=== PATIENT | male | born 1960 | race African-American/Black ===

== ENCOUNTER 2017-08-19 15:30 | Emergency (ER) | payer OTHER, SELFPAY ==
[2017-08-19] MEDS ORDERED: LIDOCAINE 1% 20 ML MDV ONE (16:47)
[2017-08-19] MEDS ORDERED: MORPHINE 4 MG/ML SYR ONE (16:47)
--- NOTE | 2017-08-19 16:50 | RAD REPORT ---
EXAM DESCRIPTION: RAD - Knee Right 3 View - 08/19/2017 4:24 pm CLINICAL HISTORY: Knee pain and swelling COMPARISON: None. FINDINGS: No fracture, dislocation or periosteal reaction.Joint effusion is present. Slight narrowin g of both the medial and lateral compartments noted. Moderately large medial compartment marginal spu rs are present with a more mild marginal spurring pattern in the lateral compartment. Calcification p resent at the patella tendon insertion to the tibia. An acute component is not confirmed. Patient has an edematous appearance to the soft tissues around the knee. No foreign body or other sof t tissue abnormality. IMPRESSION: Prominent for age degenerative change to the knee. Joint effusion is present. No fracture or acute bone finding. Clinical concerns for internal derangement or occult bony injury could be further assessed with MR im aging.
[2017-08-19 16:59] LABS: Protime INR 1.01
[2017-08-19 18:11] LABS: Absolute Lymphocytes (CBC) 1.7 K/uL (0.7-4.9); Absolute Monocytes 0.7 K/uL (0.1-1.3); Absolute Neutrophil 4.1 K/uL (1.8-8.0); Basophils % 0.8 % (0-1.3); Eosinophils % 5.3 % (0-4.4); Hematocrit 38.6 % (39.6-49.0); Lymphocytes % 24.3 % (15.3-44.8); MCH 24.4 pg (27.0-35.0); MCV 75.6 fL (80-100); MPV 7.8 fL (7.6-11.3); Monocytes % 9.8 % (3.3-12.3); RBC Red Blood Cell Count 5.11 M/uL (4.33-5.43)
[2017-08-19 18:40] LABS: BUN Blood Urea Nitrogen 12 mg/dL (7-18); Bicarbonate 28 mmol/L (21-32); Glucose Level 108 mg/dL (74-106); Potassium 3.6 mmol/L (3.5-5.1); Sodium Level 132 mmol/L (136-145)
[2017-08-19 19:12] LABS: Body Fluid Source SYNOVIAL; Color of fluid Yellow (COLORLESS)
[2017-08-19 19:13] LABS: Appearance CLEAR (CLEAR); Body Fluid WBC 601 /mm^3
--- NOTE | 2017-08-19 19:42 | EDPHYS ---
Physician Documentation [facility] Name: Juan Gloria Age: 57 yrs Sex: Male : 1960 Arrival Date: 08/19/2017 Time: 15:33 Bed 18 Private MD: Juan Ramírez E ED Physician Stef Almanzar HPI: 08/19 17:50 This 57 yrs old Black Male presents to ER via Ambulatory with complaints of Knee rn Swelling. 17:50 The patient presents with pain, swelling. The complaints affect the right knee. Onset: rn The symptoms/episode began/occurred 1 week(s) ago. Severity of symptoms: At their worst the symptoms were moderate, in the emergency department the symptoms are unchanged. The patient has experienced similar episodes in the past. Reports right knee pain and swelling, getting worse over 1 week, no hx of gout of joint infections, not a drug user, no trauma. has had bad knees for years, has planned left knee and right knee replacement. . Historical: - Allergies: 15:44 No Known Allergies; aa5 - PMHx: 15:44 Hypertension; aa5 - PSHx: 15:44 back surgery; Knee surgery; aa5 - Immunization history:: Adult Immunizations unknown. - Social history:: Smoking status: Patient/guardian denies using tobacco. - Ebola Screening: : No symptoms or risks identified at this time. - Family history:: not pertinent. - Hospitalizations: : No recent hospitalization is reported. ROS: 17:50 Constitutional: Negative for fever, chills, and weight loss, Eyes: Negative for injury, rn pain, redness, and discharge, Neck: Negative for injury, pain, and swelling, Cardiovascular: Negative for chest pain, palpitations, and edema, Respiratory: Negative for shortness of breath, cough, wheezing, and pleuritic chest pain, Abdomen/GI: Negative for abdominal pain, nausea, vomiting, diarrhea, and constipation, MS/Extremity: Negative for injury and deformity, + swelling and pain to right knee Skin: Negative for injury, rash, and discoloration, Neuro: Negative for headache, weakness, numbness, tingling, and seizure. Exam: 17:50 Constitutional: Overweight male, limping to room MS/ Extremity: + right knee swelling rn and effusion, + mild warmth, no evidence of cellulitis, able to range approx 50% on own but painful. Vital Signs: 15:44 BP 145 / 74; Pulse 87; Resp 18 S; Temp 99.6(TE); Pulse Ox 93% on R/A; Weight 156.49 kg aa5 (R); Height 5 ft. 10 in. (177.80 cm) (R); Pain 9/10; 18:09 BP 123 / 89; Pulse 86; Resp 18; Pulse Ox 96% on R/A; tl3 18:55 BP 141 / 74; Pulse 82; Resp 18; Pulse Ox 96% on R/A; tl3 19:48 BP 144 / 85; Pulse 85; Resp 18 S; Pulse Ox 98% on R/A; jd3 15:44 Body Mass Index 49.50 (156.49 kg, 177.80 cm) aa5 MDM: 15:47 Patient medically screened. rn 19:38 Differential diagnosis: effusion, sprain, inflammatory arthritis. Data reviewed: vital rn signs, nurses notes, lab test result(s), radiologic studies, plain films, and as a result, I will discharge patient. Counseling: I had a detailed discussion with the patient and/or guardian regarding: the historical points, exam findings, and any diagnostic results supporting the discharge/admit diagnosis, lab results, radiology results, the need for outpatient follow up, to return to the emergency department if symptoms worsen or persist or if there are any questions or concerns that arise at home. Special discussion: I discussed with the patient/guardian in detail that at this point there is no indication for admission to the hospital. It is understood, however, that if the symptoms persist or worsen the patient needs to return immediately for re-evaluation. 08/19 15:56 Order name: CBC with Diff; Complete Time: 19:20 rn 08/19 15:56 Order name: Basic Metabolic Panel; Complete Time: 19:20 rn 08/19 15:56 Order name: Protime (+inr); Complete Time: 17:48 rn 08/19 15:56 Order name: Ptt, Activated; Complete Time: 17:48 rn 08/19 15:56 Order name: Procalcitonin; Complete Time: 19:20 rn 08/19 15:56 Order name: Sed Rate; Complete Time: 19:20 rn 08/19 15:56 Order name: IV Start; Complete Time: 16:43 rn 08/19 15:56 Order name: XRAY Knee RIGHT 3 view; Complete Time: 17:00 rn 08/19 15:56 Order name: Blood Culture Adult (2) rn 08/19 17:47 Order name: Fluid Cell Count,Body rn 08/19 17:47 Order name: Fluid Crystals; Complete Time: 19:20 rn 08/19 17:47 Order name: Body Fluid Culture rn 08/19 16:56 Order name: Labs - recollect needed; Complete Time: 17:51 bd Administered Medications: 16:40 Drug: Lidocaine (1 %) 1 vials {Note: per Gary Page.} Volume: 20 ml; Route: tl3 Infiltration; 18:11 Follow up: Response: No adverse reaction tl3 16:51 Drug: morphine 4 mg Route: IVP; Site: right antecubital; jl7 18:11 Follow up: Response: No adverse reaction tl3 Disposition: 08/19/17 19:41 Discharged to Home. Impression: Effusion, right knee, Inflammatory Arthritis. - Condition is Stable. - Discharge Instructions: Knee Effusion, Knee Arthrocentesis. - Prescriptions for Tylenol- Codeine #3 300-30 mg Oral Tablet - take 2 tablets by ORAL route every 6 hours As needed; 20 tablet. - Medication Reconciliation Form, Thank You Letter, Antibiotic Education, Prescription Opioid Use, Work release form form. - Follow up: Yonatan Dunn MD; When: 2 - 3 days; Reason: Recheck today's complaints, Re-evaluation by your physician. - Problem is an ongoing problem. - Symptoms have improved. Signatures: Dispatcher [employer] EDMS Karolyn Hein Roman, MD MD rn Calderon, Audri RN RN aa5 Mirlande Owusu RN RN jl7 Joel Fuentes RN RN jd3 Sabina Rivera RN RN tl3 Corrections: (The following items were deleted from the chart) 20:17 19:41 08/19/2017 19:41 Discharged to Home. Impression: Effusion, right knee; jd3 Inflammatory Arthritis. Condition is Stable. Forms are Medication Reconciliation Form, Thank You Letter, Antibiotic Education, Prescription Opioid Use. Follow up: Yonatan Dunn; When: 2 - 3 days; Reason: Recheck today's complaints, Re-evaluation by your physician. Problem is an ongoing problem. Symptoms have improved. rn
--- NOTE | 2017-08-19 19:42 | ER ---
Nurse's Notes [facility] Name: Juan Gloria Age: 57 yrs Sex: Male : 1960 Arrival Date: 08/19/2017 Time: 15:33 Bed 18 Private MD: Juan Ramírez E Diagnosis: Effusion, right knee;Inflammatory Arthritis Presentation: 08/19 15:42 Presenting complaint: Patient states: "my right knee is swollen and it hurts, and it's aa5 warm to the touch". pt reports symptoms began 1 week ago. Transition of care: patient was not received from another setting of care. Onset of symptoms was August 2017. Risk Assessment: Do you want to hurt yourself or someone else? Patient reports no desire to harm self or others. Initial Sepsis Screen: Does the patient meet any 2 criteria? No. Patient's initial sepsis screen is negative. Does the patient have a suspected source of infection? No. Patient's initial sepsis screen is negative. Care prior to arrival: None. 15:42 Method Of Arrival: Ambulatory aa5 15:42 Acuity: MANDA 3 aa5 Historical: - Allergies: 15:44 No Known Allergies; aa5 - PMHx: 15:44 Hypertension; aa5 - PSHx: 15:44 back surgery; Knee surgery; aa5 - Immunization history:: Adult Immunizations unknown. - Social history:: Smoking status: Patient/guardian denies using tobacco. - Ebola Screening: : No symptoms or risks identified at this time. - Family history:: not pertinent. - Hospitalizations: : No recent hospitalization is reported. Screenin:20 Abuse screen: Denies threats or abuse. Denies injuries from another. Nutritional jl7 screening: No deficits noted. Tuberculosis screening: No symptoms or risk factors identified. Fall Risk IV access (20 points). Total Muñoz Fall Scale indicates No Risk (0-24 pts). Assessment: 16:20 General: Appears in no apparent distress. uncomfortable, Behavior is calm, cooperative, jl7 appropriate for age. Pain: Complains of pain in right knee Pain does not radiate. Pain currently is 9 out of 10 on a pain scale. Pain began a month ago Is continuous. Neuro: Level of Consciousness is awake, alert, obeys commands, Oriented to person, place, time, situation. Cardiovascular: Patient's skin is warm and dry. Respiratory: Airway is patent Respiratory effort is even, unlabored, Respiratory pattern is regular, symmetrical. GI: No signs and/or symptoms were reported involving the gastrointestinal system. : No signs and/or symptoms were reported regarding the genitourinary system. EENT: No signs and/or symptoms were reported regarding the EENT system. Derm: Skin is dry, Skin is normal, Skin temperature is warm. Musculoskeletal: Range of motion: limited in right knee. 18:09 Reassessment: Patient and/or family updated on plan of care and expected duration. Pain tl3 level reassessed. Patient is alert, oriented x 3, equal unlabored respirations, skin warm/dry/pink. aspiration complete, removed about 25 ml of clear yellow fluid, pt tolerated well. 18:55 Reassessment: Patient appears in no apparent distress at this time. No changes from tl3 previously documented assessment. Patient and/or family updated on plan of care and expected duration. Pain level reassessed. Patient is alert, oriented x 3, equal unlabored respirations, skin warm/dry/pink. pt has no needs at this time, updated on lab results, report given to Joel LEIVA. 19:15 Reassessment: Patient appears in no apparent distress at this time. No changes from jd3 previously documented assessment. Patient and/or family updated on plan of care and expected duration. Pain level reassessed. Patient is alert, oriented x 3, equal unlabored respirations, skin warm/dry/pink. awaiting lab results and disposition from provider. 19:49 Reassessment: Patient appears in no apparent distress at this time. Patient and/or jd3 family updated on plan of care and expected duration. Pain level reassessed. Patient is alert, oriented x 3, equal unlabored respirations, skin warm/dry/pink. awaiting provider to discuss results with pt before discharge. 20:16 Reassessment: Patient appears in no apparent distress at this time. Patient and/or jd3 family updated on plan of care and expected duration. Pain level reassessed. Patient is alert, oriented x 3, equal unlabored respirations, skin warm/dry/pink. pt reported understanding of discharge instructions, pt assisted to front of ER with wheelchair. Vital Signs: 15:44 BP 145 / 74; Pulse 87; Resp 18 S; Temp 99.6(TE); Pulse Ox 93% on R/A; Weight 156.49 kg aa5 (R); Height 5 ft. 10 in. (177.80 cm) (R); Pain 9/10; 18:09 BP 123 / 89; Pulse 86; Resp 18; Pulse Ox 96% on R/A; tl3 18:55 BP 141 / 74; Pulse 82; Resp 18; Pulse Ox 96% on R/A; tl3 19:48 BP 144 / 85; Pulse 85; Resp 18 S; Pulse Ox 98% on R/A; jd3 15:44 Body Mass Index 49.50 (156.49 kg, 177.80 cm) aa5 ED Course: 15:33 Patient arrived in ED. sb2 15:34 Juan Ramírez MD is Private Physician. sb2 15:43 Triage completed. aa5 15:44 Arm band placed on. aa5 15:47 Stef Almanzar MD is Attending Physician. rn 16:05 Sabina Rivera, CALI is Primary Nurse. tl3 16:20 Patient has correct armband on for positive identification. Placed in gown. Bed in low jl7 position. Call light in reach. Side rails up X 1. Pulse ox on. NIBP on. Warm blanket given. 16:23 X-ray completed. Portable x-ray completed in exam room. Patient tolerated procedure kc2 well. 16:24 XRAY Knee RIGHT 3 view In Process Unspecified. EDMS 16:30 Inserted saline lock: 20 gauge in right antecubital area, using aseptic technique. jl7 Blood collected. 16:32 Initial lab(s) drawn, by me, sent to lab. First set of blood cultures drawn by me. jl7 16:50 Second set of blood cultures drawn. Missed attempt(s): 20 gauge in right forearm. jl7 Bleeding controlled, band aid applied, catheter tip intact. 18:09 knee aspiration. tl3 18:09 Lab(s) recollected, by me, sent to lab. tl3 19:41 Yonatan Dunn MD is Referral Physician. rn 19:57 Primary Nurse role handed off by Sabina Rivera, RN jd3 19:57 Joel Fuentes RN is Primary Nurse. jd3 20:15 IV discontinued, intact, bleeding controlled, No redness/swelling at site. Pressure jd3 dressing applied. Administered Medications: 16:40 Drug: Lidocaine (1 %) 1 vials {Note: per Gary Page.} Volume: 20 ml; Route: tl3 Infiltration; 18:11 Follow up: Response: No adverse reaction tl3 16:51 Drug: morphine 4 mg Route: IVP; Site: right antecubital; jl7 18:11 Follow up: Response: No adverse reaction tl3 Outcome: 19:41 Discharge ordered by MD. rn 20:15 Discharged to home via wheelchair, with family. jd3 20:15 Condition: stable 20:15 Discharge instructions given to patient, family, Instructed on discharge instructions, follow up and referral plans. medication usage, Demonstrated understanding of instructions, follow-up care, medications, Prescriptions given X 1. 20:17 Patient left the ED. jd3 Signatures: Dispatcher [employer] EDMS Stef Almanzar MD MD rn Calderon, Audri RN RN aa5 Natalia Stoddard2 Mirlande Owusu RN RN jl7 Joel Fuentes RN RN jd3 Mickie Hoffmann2 Sabina Rivera, RN RN tl3 Corrections: (The following items were deleted from the chart) 19:17 19:15 Reassessment: Patient appears in no apparent distress at this time. No changes jd3 from previously documented assessment. Patient and/or family updated on plan of care and expected duration. Pain level reassessed. Patient is alert, oriented x 3, equal unlabored respirations, skin warm/dry/pink. awaiting lab results and dispostition jd3
== END 2017-08-19 20:17 | disposition home or self-care (01) ==
LOC: ER 15:30
DX: M25.461 Effusion, right knee (principal); I10 Essential (primary) hypertension; M13.861 Other specified arthritis, right knee
CPT/HCPCS: 36415; 80048; 84145; 85025; 85610; 85652; 85730; 87040; 87070; 89050; 89060; 96374; 99284

== ENCOUNTER 2019-09-22 11:50 | Emergency (ER) | payer BC, OTHER ==
--- OUTSIDE RECORDS SUMMARY | 2019-09-22 12:27 | XMS REPORT | Continuity of Care Document ---
:1960 Author Organization [facility] t Address [address] [place] [address] [address] [place] [address] Care Team Providers Name Role Phone Unavailable Unavailable Unavailable Problems This patient has no known problems. Allergies, Adverse Reactions, Alerts This patient has no known allergies or adverse reactions. Medications This patient has no known medications. Procedures This patient has no known procedures. Results This patient has no known results.
[2019-09-22] MEDS ORDERED: HYDROCODONE/CHLORPHEN 5 ML/OSYR ONE (13:24)
[2019-09-22] MEDS ORDERED: dexAMETHasone 10 MG/ML VIAL ONE (13:24)
[2019-09-22 13:25] LABS: Absolute Lymphocytes (CBC) 0.8 K/uL (0.7-4.9); Basophils % 0.5 % (0-1.3); Hematocrit 39.4 % (39.6-49.0); Lymphocytes % 20.5 % (15.3-44.8); MPV 8.1 fL (7.6-11.3); RBC Red Blood Cell Count 5.22 M/uL (4.33-5.43)
[2019-09-22 13:28] LABS: Protime INR 1.13
--- NOTE | 2019-09-22 13:29 | RAD REPORT ---
EXAM DESCRIPTION: Verónica Single View09/22/2019 1:12 pm CLINICAL HISTORY: Cough COMPARISON: 2017 FINDINGS: Moderate bilateral pulmonary opacities Heart appears borderline enlarged IMPRESSION: Bilateral pulmonary opacities may indicate pneumonia or pulmonary edema
[2019-09-22 13:43] LABS: ALT/SGPT 49 U/L (12-78); AST/SGOT 75 U/L (15-37); Alkaline Phosphatase 63 U/L (45-117); BUN Blood Urea Nitrogen 5 mg/dL (7-18); Bicarbonate 29 mmol/L (21-32); Bilirubin Direct 0.3 mg/dL (0-0.2); Bilirubin Total 0.8 mg/dL (0.2-1.0); Glucose Level 109 mg/dL (74-106); Potassium 3.6 mmol/L (3.5-5.1); Protein, Total 8.4 g/dL (6.4-8.2); Sodium Level 138 mmol/L (136-145)
--- NOTE | 2019-09-22 16:11 | ER ---
Nurse's Notes [facility] Name: Juan Gloria Age: 59 yrs Sex: Male : 1960 Arrival Date: 09/22/2019 Time: 11:53 Bed 25 Private MD: Diagnosis: Coronavirus infection, unspecified-Pneumonia Presentation: 09/21 12:22 Chief complaint: Patient states: Cough \T\ SOB x 1 week. tested positive for COVID jl7 last . Pt denies fever. Coronavirus screen: Patient reports a cough. Patient reports shortness of breath or difficulty breathing. Patient denies measured and/or subjective temperature greater than 100.4F prior to today's visit. Patient denies travel on a cruise ship or to a country the [facility] currently lists as an affected area. Patient reports contact with known and/or suspected case of COVID-19. Patient instructed to continue to wear a mask when interacting with others. Patient moved to private room, placed in contact and droplet isolation with eye protection until further assessment. Ebola Screen: No symptoms or risks identified at this time. Initial Sepsis Screen: Does the patient meet any 2 criteria? No. Patient's initial sepsis screen is negative. Does the patient have a suspected source of infection? No. Patient's initial sepsis screen is negative. Risk Assessment: Do you want to hurt yourself or someone else? Patient reports no desire to harm self or others. Onset of symptoms was September 16, 2019. Care prior to arrival: None. Transition of care: patient was not received from another setting of care. 12:22 Method Of Arrival: Wheelchair [facility] 12:22 Acuity: MANDA 2 jl7 Triage Assessment: 16:42 Respiratory: Airway is patent Trachea midline Respiratory effort is even, unlabored, ll1 Respiratory pattern is regular, symmetrical, Breath sounds are diminished bilaterally. Onset: The symptoms/episode began/occurred since Friday. Historical: - Allergies: 12:25 No Known Allergies; jl7 - PMHx: 12:25 Hypertension; jl7 - PSHx: 12:25 back surgery; Knee surgery; jl7 - Immunization history:: Adult Immunizations unknown. - Social history:: Smoking status: Patient denies any tobacco usage or history of. - Family history:: not pertinent. - Hospitalizations: : No recent hospitalization is reported. Screenin:16 Abuse screen: Denies threats or abuse. Nutritional screening: No deficits noted. ll1 Tuberculosis screening: No symptoms or risk factors identified. Fall Risk No fall in past 12 months (0 pts). IV access (20 points). Total Muñoz Fall Scale indicates No Risk (0-24 pts). Assessment: 12:40 General: Appears ill, Behavior is calm, cooperative. Pain: Denies pain. Neuro: No ll1 deficits noted. Cardiovascular: No deficits noted. Rhythm is regular. Respiratory: Reports shortness of breath at rest cough that is Airway is patent Trachea midline Respiratory effort is even, labored, Respiratory pattern is regular, symmetrical, the patient has mild shortness of breath. GI: Abdomen is round Bowel sounds present X 4 quads. Abd is soft and non tender X 4 quads. Reports diarrhea. 13:40 Reassessment: No changes from previously documented assessment. Patient and/or family ll1 updated on plan of care and expected duration. Pain level reassessed. Patient is alert, oriented x 3, equal unlabored respirations, skin warm/dry/pink. Removed O2, will continue to monitor. 14:40 Reassessment: Patient appears in no apparent distress at this time. No changes from ll1 previously documented assessment. Patient and/or family updated on plan of care and expected duration. Pain level reassessed. Patient is alert, oriented x 3, equal unlabored respirations, skin warm/dry/pink. 15:40 Reassessment: Patient appears in no apparent distress at this time. No changes from ll1 previously documented assessment. Patient and/or family updated on plan of care and expected duration. Pain level reassessed. Patient is alert, oriented x 3, equal unlabored respirations, skin warm/dry/pink. 16:42 Respiratory: Breath sounds are diminished. ll1 16:44 Reassessment: Patient appears in no apparent distress at this time. No changes from ll1 previously documented assessment. Patient and/or family updated on plan of care and expected duration. Pain level reassessed. Patient is alert, oriented x 3, equal unlabored respirations, skin warm/dry/pink. Vital Signs: 12:22 BP 155 / 94; Pulse 92; Resp 28; Temp 99.2; Pulse Ox 94% ; Weight 147.42 kg; Height 5 jl7 ft. 9 in. (175.26 cm); Pain 10/10; 12:35 Pulse Ox 98% on 2 lpm NC; ll1 13:56 BP 136 / 66; Pulse 86; Resp 23; Pulse Ox 96% on R/A; ll1 14:00 Pulse 82; Resp 24; Pulse Ox 100% ; ll1 16:41 BP 141 / 71; Pulse 80; Resp 23; Pulse Ox 97% ; ll1 12:22 Body Mass Index 47.99 (147.42 kg, 175.26 cm) jl7 ED Course: 11:53 Patient arrived in ED. fj1 12:24 Triage completed. jl7 12:25 Arm band placed on right wrist. Patient placed in an exam room, on a stretcher. jl7 12:26 Shana Renteria, CALI is Primary Nurse. ll1 12:33 Stef Almanzar MD is Attending Physician. rn 12:55 Inserted saline lock: 22 gauge in left antecubital area, using aseptic technique. Blood ll1 collected. 13:13 CXR XRAY In Process Unspecified. EDMS 13:25 Bed in low position. Call light in reach. Side rails up X 1. Side rails up X2. Verbal jp3 reassurance given. supervisor customer records division on. Pulse ox on. NIBP on. 13:25 EKG done, by ED staff, reviewed by Stef Almanzar MD. jp3 16:41 IV discontinued, intact, bleeding controlled, No redness/swelling at site. Pressure ll1 dressing applied. 16:42 No provider procedures requiring assistance completed. ll1 Administered Medications: 13:55 Drug: Tussionex Pennkinetic ER 5 ml Route: PO; ll1 16:44 Follow up: Response: No adverse reaction; Pain is decreased; RASS: Alert and Calm (0) ll1 13:55 Drug: Decadron - Dexamethasone 10 mg Route: IVP; Site: left antecubital; ll1 16:43 Follow up: Response: No adverse reaction; RASS: Alert and Calm (0) ll1 Outcome: 16:10 Discharge ordered by . rn 16:29 Patient left the ED. ll1 16:42 Discharged to home ambulatory. ll1 16:42 Condition: stable 16:42 Discharge instructions given to patient, Instructed on discharge instructions, follow up and referral plans. no drinking with medication, no driving heavy equipment, medication usage, Demonstrated understanding of instructions, follow-up care, medications, Prescriptions given X 4. Addendum: 09/25/2019 13:19 Addendum: COVID-19 Result: Positive result giiven to ED physician to notify pt. h b Physician left voice mail for pt to call the ED back. Signatures: Dispatcher [employer] EDStef Wasserman MD MD rn Baxter, Heather RN RN Mirlande Atwood RN RN jl7 Gerson Mesa jp3 Rafael Dailey1 Shana Renteria RN RN ll1
--- NOTE | 2019-09-22 16:11 | EDPHYS ---
Physician Documentation [facility] Name: Juan Gloria Age: 59 yrs Sex: Male : 1960 Arrival Date: 09/22/2019 Time: 11:53 Bed 25 Private MD: ED Physician Setf Almanzar HPI: 09/21 13:47 This 59 yrs old Black Male presents to ER via Wheelchair with complaints of Breathing rn Difficulty, Cough. 13:47 The patient has shortness of breath at rest, with light activity. Onset: The rn symptoms/episode began/occurred 2 day(s) ago. Duration: The symptoms are continuous. The patient's shortness of breath is aggravated by exertion, light activity. Severity of symptoms: At their worst the symptoms were moderate in the emergency department the symptoms are unchanged. The patient has not experienced similar symptoms in the past. Reports + for COVID this past week, reports himself with 3-4 days of cough/sob/headache/loss of sense of taste and smell, + generalized weakness. . Historical: - Allergies: 12:25 No Known Allergies; jl7 - PMHx: 12:25 Hypertension; jl7 - PSHx: 12:25 back surgery; Knee surgery; jl7 - Immunization history:: Adult Immunizations unknown. - Social history:: Smoking status: Patient denies any tobacco usage or history of. - Family history:: not pertinent. - Hospitalizations: : No recent hospitalization is reported. ROS: 13:47 Constitutional: + fever Eyes: Negative for injury, pain, redness, and discharge, Neck: rn Negative for injury, pain, and swelling, Cardiovascular: Negative for chest pain, palpitations, and edema, Respiratory: + cough and sob Abdomen/GI: Negative for abdominal pain, nausea, vomiting, diarrhea, and constipation, MS/Extremity: Negative for injury and deformity, Skin: Negative for injury, rash, and discoloration, Neuro: Negative for numbness, tingling, and seizure Exam: 13:47 Constitutional: This is a well developed, well nourished patient who is awake, alert, rn + mild tachypnea Head/Face: Normocephalic, atraumatic. ENT: dry MM Cardiovascular: Regular rate and rhythm. No pulse deficits. Respiratory: + mild tachypnea, diminished at bases, no retractions Abdomen/GI: soft, non-tender MS/ Extremity: Pulses equal, no cyanosis. Neurovascular intact. Full, normal range of motion. Equal circumference. Neuro: Awake and alert, GCS 15 14:43 ECG was reviewed by the Attending Physician. rn Vital Signs: 12:22 BP 155 / 94; Pulse 92; Resp 28; Temp 99.2; Pulse Ox 94% ; Weight 147.42 kg; Height 5 jl7 ft. 9 in. (175.26 cm); Pain 10/10; 12:35 Pulse Ox 98% on 2 lpm NC; ll1 13:56 BP 136 / 66; Pulse 86; Resp 23; Pulse Ox 96% on R/A; ll1 14:00 Pulse 82; Resp 24; Pulse Ox 100% ; ll1 16:41 BP 141 / 71; Pulse 80; Resp 23; Pulse Ox 97% ; ll1 12:22 Body Mass Index 47.99 (147.42 kg, 175.26 cm) jl7 MDM: 12:33 Patient medically screened. rn 16:08 Differential diagnosis: pneumonia, Pneumothorax pulmonary edema, COVID 19. Data rn reviewed: vital signs, nurses notes, lab test result(s), radiologic studies, plain films, and as a result, I will discharge patient. Counseling: I had a detailed discussion with the patient and/or guardian regarding: the historical points, exam findings, and any diagnostic results supporting the discharge/admit diagnosis, lab results, radiology results, the need for outpatient follow up, to return to the emergency department if symptoms worsen or persist or if there are any questions or concerns that arise at home. Response to treatment: the patient's symptoms have mildly improved after treatment, and as a result, I will discharge patient. ED course: Spoke with patient, cxr shows likely covid pneumonia, no oxygen requirement, mild tachypnea, offered patient admission, patient does not want to be admitted, wants to go home and states will return if worsens, strict return precautions given, will dc home with cough medication, steroids, inhaler. . 09/21 12:34 Order name: Blood Culture Adult (2) rn 09/21 12:34 Order name: BMP; Complete Time: 13:59 rn 09/21 12:34 Order name: C-Reactive Protein; Complete Time: 13:59 rn 09/21 12:34 Order name: CBC with Diff; Complete Time: 13:33 rn 09/21 12:34 Order name: COVID-19 rn 09/21 12:34 Order name: D-Dimer; Complete Time: 13:33 rn 09/21 12:34 Order name: Ferritin; Complete Time: 13:59 rn 09/21 12:34 Order name: Lactate; Complete Time: 13:59 rn 09/21 12:34 Order name: LFT's; Complete Time: 13:59 rn 09/21 12:34 Order name: Procalcitonin; Complete Time: 13:59 rn 09/21 12:34 Order name: PT-INR; Complete Time: 13:33 rn 09/21 12:34 Order name: Ptt, Activated; Complete Time: 13:33 rn 09/21 12:34 Order name: CXR XRAY; Complete Time: 13:33 rn 09/21 12:34 Order name: EKG; Complete Time: 12:36 rn 09/21 12:34 Order name: Cardiac monitoring; Complete Time: 13:25 rn 09/21 12:34 Order name: Document PUI# rn 09/21 12:34 Order name: Droplet/Contact Precautions; Complete Time: 13:15 rn 09/21 12:34 Order name: EKG - Nurse/Tech; Complete Time: 13:15 rn 09/21 12:34 Order name: IV Start; Complete Time: 12:40 rn 09/21 12:34 Order name: Labs collected and sent; Complete Time: 13:15 rn 09/21 12:34 Order name: Notify Health Dept [phone]/ rn 09/21 12:34 Order name: O2 Per Protocol; Complete Time: 12:40 rn 09/21 12:34 Order name: O2 Sat Monitoring; Complete Time: 12:40 rn EC:43 Rate is 89 beats/min. Rhythm is regular. QRS [place] is Normal. Left axis deviation noted. rn QRS is positive in lead I and negative in lead aVF. CO interval is normal. QRS interval is normal. QT interval is normal. No Q waves. T waves are Normal. No ST changes noted. Clinical impression: NSR w/ Non-specific ST/T Changes. Interpreted by me. Reviewed by me. Administered Medications: 13:55 Drug: Tussionex Pennkinetic ER 5 ml Route: PO; ll1 16:44 Follow up: Response: No adverse reaction; Pain is decreased; RASS: Alert and Calm (0) ll1 13:55 Drug: Decadron - Dexamethasone 10 mg Route: IVP; Site: left antecubital; ll1 16:43 Follow up: Response: No adverse reaction; RASS: Alert and Calm (0) ll1 Disposition: 09/22/19 16:10 Discharged to Home. Impression: Coronavirus infection, unspecified - Pneumonia. - Condition is Stable. - Discharge Instructions: Fever, Adult, Community-Acquired Pneumonia, Adult, COVID-19. - Prescriptions for dexamethasone 6 mg Oral tablet - take 1 tablet by ORAL route once daily for 10 days; 10 tablet. Albuterol Sulfate 90 mcg/actuation - inhale 1-2 puff by INHALATION route every 4-6 hours; 1 Inhaler. Guaifenesin AC 10- 100 mg/5 mL Oral Liquid - take 10 milliliter by ORAL route every 4 hours As needed; 240 milliliter. Zithromax Z- Nicola 250 mg Oral Tablet - take 1 tablet by ORAL route as directed for 5 days Day 1 - take two (2) tablets one time. Day 2, 3, 4 , 5 take one (1) tablet once daily.; 6 tablet. - Medication Reconciliation Form, Thank You Letter, Antibiotic Education, Prescription Opioid Use form. - Follow up: Private Physician; When: 1 - 2 days; Reason: Recheck today's complaints, Re-evaluation by your physician. - Problem is new. - Symptoms have improved. Signatures: Dispatcher [employer] EDMS Stef Almanzar MD MD rn Leal, Jahala, RN RN jl7 Shana Renteria RN RN ll1 Corrections: (The following items were deleted from the chart) 16:29 16:10 09/22/2019 16:10 Discharged to Home. Impression: Coronavirus infection, ll1 unspecified - Pneumonia. Condition is Stable. Forms are Medication Reconciliation Form, Thank You Letter, Antibiotic Education, Prescription Opioid Use. Follow up: Private Physician; When: 1 - 2 days; Reason: Recheck today's complaints, Re-evaluation by your physician. Problem is new. Symptoms have improved. rn
[2019-09-22 22:26] VITALS: TEMP 99.2
[2019-09-22 22:28] VITALS: BP 136/66
[2019-09-22 22:30] VITALS: O2SAT 100
--- NOTE | 2019-09-24 15:28 | EKG ---
Test Date: 2019-09-22 Test Time: 13:16:28 Environmental Services Aide: VICKI MEASUREMENT RESULTS: Intervals: Rate: 89 ND: 156 QRSD: 154 QT: 418 QTc: 508 [place]: P: 54 ND: 156 QRS: -59 T: 31 INTERPRETIVE STATEMENTS: Normal sinus rhythm Left axis deviation Right bundle branch block Abnormal ECG Compared to ECG 01/14/2000 11:20:00 Left-axis deviation now present Right bundle-branch block now present Electronically Signed On 09-24-19 15:24:39 CDT by Pranay Kumari
== END 2019-09-22 16:29 | disposition home or self-care (01) ==
LOC: ER 11:50
DX: U07.1 COVID-19 (principal); J12.89 Other viral pneumonia
CPT/HCPCS: 93005; 87040 ×2; 85025; 80048; 36415; 85610; 85379; 80076; 83605; 85730; 82728; 84145; 86140; 71045; 96374; 99285; J1100

== ENCOUNTER 2019-09-25 07:57 | Inpatient (IN) | payer BC, OTHER ==
--- OUTSIDE RECORDS SUMMARY | 2019-09-25 07:59 | XMS REPORT | Continuity of Care Document ---
:1960 Author Organization [facility] t Address [address] [place] [address] [address]. [address] [place] [address] Care Team Providers Name Role Phone Unavailable Unavailable Unavailable Problems This patient has no known problems. Allergies, Adverse Reactions, Alerts This patient has no known allergies or adverse reactions. Medications This patient has no known medications. Procedures This patient has no known procedures. Results This patient has no known results.
[2019-09-25 08:36] LABS: Basophils % 0.1 % (0-1.3); Hematocrit 40.1 % (39.6-49.0); Lymphocytes % 11.5 % (15.3-44.8); MPV 8.1 fL (7.6-11.3); RBC Red Blood Cell Count 5.32 M/uL (4.33-5.43)
[2019-09-25] MEDS ORDERED: dexAMETHasone 10 MG/ML VIAL ONE (08:51)
[2019-09-25] MEDS ORDERED: ALBUTEROL INHALER 60 PUFF/8 GM IH ONE (08:52)
[2019-09-25] MEDS ORDERED: ENOXAPARIN 100 MG/ML SYR SQ ONE (08:52)
[2019-09-25] MEDS ORDERED: CEFTRIAXONE/SWI 1gm 1 GM/10 ML SYR ONE (08:52)
[2019-09-25 08:59] LABS: ALT/SGPT 58 U/L (12-78); AST/SGOT 80 U/L (15-37); Alkaline Phosphatase 62 U/L (45-117); BUN Blood Urea Nitrogen 10 mg/dL (7-18); Bicarbonate 27 mmol/L (21-32); Bilirubin Direct 0.3 mg/dL (0-0.2); Bilirubin Total 0.7 mg/dL (0.2-1.0); Glucose Level 115 mg/dL (74-106); Magnesium 2.3 mg/dL (1.8-2.4); NT PRO-BNP 96 pg/mL (<125); Potassium 3.4 mmol/L (3.5-5.1); Protein, Total 8.6 g/dL (6.4-8.2); Sodium Level 139 mmol/L (136-145); Troponin (Emerg Dept Use Only) < 0.02 ng/mL (0.0-0.045)
--- NOTE | 2019-09-25 09:20 | ER ---
Nurse's Notes [facility] Name: Juan Gloria Age: 59 yrs Sex: Male : 1960 Arrival Date: 09/25/2019 Time: 08:08 Bed 2 Private MD: Diagnosis: Dyspnea;Hypoxemia;Obesity, unspecified;Pneumonia due to other specified bacteria-covid positive;Hypokalemia Presentation: 09/24 08:08 Chief complaint: Patient states: Increased SOB x 2 days ago. Pt reports positive for aa5 COVID-19 and Pneumonia recently. EMS reports pt's O2 sat was 74% RA upon scene arrival and increased to 88% with non-rebreather. Pt currently 96% per 3 L NC, tachypnea and SOB noted. Pt given ASA 324mg by EMS. 08:08 Coronavirus screen: Patient reports a cough. Patient reports shortness of breath or aa5 difficulty breathing. Patient denies measured and/or subjective temperature greater than 100.4F prior to today's visit. Patient denies travel on a cruise ship or to a country the [facility] currently lists as an affected area. Patient instructed to continue to wear a mask when interacting with others. Patient moved to private room, placed in contact and droplet isolation with eye protection until further assessment. Ebola Screen: Patient negative for fever greater than or equal to 101.5 degrees Fahrenheit, and additional compatible Ebola Virus Disease symptoms. Initial Sepsis Screen: Does the patient meet any 2 criteria? RR > 20 per min. HR > 90 bpm. Yes Does the patient have a suspected source of infection? Yes: Productive cough/pneumonia. Risk Assessment: Do you want to hurt yourself or someone else? Patient reports no desire to harm self or others. Onset of symptoms was September 2019. 08:08 Acuity: MANDA 2 aa5 08:08 Method Of Arrival: EMS: [facility] aa5 Historical: - Allergies: 08:08 No Known Allergies; aa5 - PMHx: 08:08 Hypertension; aa5 - PSHx: 08:08 back surgery; Knee surgery; aa5 - Immunization history:: Adult Immunizations unknown. - Family history:: not pertinent. - Social history:: Smoking status: Patient denies any tobacco usage or history of. Screenin:20 Abuse screen: Denies threats or abuse. Nutritional screening: No deficits noted. aa5 Tuberculosis screening: No symptoms or risk factors identified. Fall Risk IV access (20 points). Total Muñoz Fall Scale indicates No Risk (0-24 pts). Assessment: 08:08 General: Appears uncomfortable, Behavior is calm, cooperative. Pain: Complains of pain aa5 in right lateral anterior chest and left lateral anterior chest Pain does not radiate. Pain currently is 0 out of 10 on a pain scale. Quality of pain is described as aching, Pain began 2-3 days ago. Pt reports pain only with cough Is intermittent. Neuro: Level of Consciousness is awake, alert, obeys commands, Oriented to person, place, time, situation. Cardiovascular: Heart tones S1 S2 present Rhythm is sinus tachycardia. Respiratory: Reports shortness of breath at rest cough that is productive, Airway is patent Respiratory effort is labored, Respiratory pattern is tachypnea Breath sounds are diminished bilaterally. GI: Abdomen is obese, Abd is soft and non tender X 4 quads. : No signs and/or symptoms were reported regarding the genitourinary system. EENT: No signs and/or symptoms were reported regarding the EENT system. Derm: Skin is dry, Skin is normal, Skin temperature is warm. Musculoskeletal: Range of motion: intact in all extremities. 08:50 Neuro: Level of Consciousness is awake, alert, obeys commands, Oriented to person, aa5 place, time, situation. Respiratory: Airway is patent Respiratory effort is labored, Respiratory pattern is tachypnea. Derm: Skin is dry, Skin is normal, Skin temperature is warm. 08:50 General: Appears uncomfortable. aa5 09:00 Reassessment: Awaiting Zithromax from pharmacy. . aa5 09:35 Reassessment: Pt resting in bed with eyes closed, respirations are even and tachypnea, aa5 skin is normal/warm/dry. Sinus tach on monitor. . 10:18 Reassessment: Reports SOB has improved. . General: Appears comfortable. Pain: Denies aa5 pain. Neuro: Level of Consciousness is awake, alert, obeys commands, Oriented to person, place, time, situation. Respiratory: Airway is patent Respiratory effort is even, unlabored, Respiratory pattern is tachypnea. Derm: Skin is dry, Skin is normal, Skin temperature is warm. 11:25 Neuro: Level of Consciousness is awake, alert, obeys commands, Oriented to person, aa5 place, time, situation. Respiratory: Airway is patent Respiratory effort is even, unlabored, Respiratory pattern is tachypnea. Derm: Skin is dry, Skin is normal, Skin temperature is warm. 11:25 Pain: Denies pain. aa5 Vital Signs: 08:08 BP 144 / 88; Pulse 110; Resp 38 S; Temp 99.6(O); Pulse Ox 96% on 3 lpm NC; Weight aa5 156.49 kg (R); Height 5 ft. 9 in. (175.26 cm) (R); Pain 0/10; 09:00 BP 152 / 66; Pulse 102; Resp 34 S; Pulse Ox 93% on 4 lpm NC; Pain 0/10; aa5 09:45 BP 144 / 88; Pulse 101; Resp 28 S; Pulse Ox 97% on 4 lpm NC; aa5 10:52 BP 145 / 72; Pulse 96; Resp 24 S; Temp 97.7(O); Pulse Ox 94% on 4 lpm NC; Pain 0/10; aa5 08:08 Body Mass Index 50.95 (156.49 kg, 175.26 cm) aa5 ED Course: 08:08 Patient arrived in ED. aa5 08:08 Arm band placed on Patient placed in an exam room, on a stretcher. aa5 08:08 Patient has correct armband on for positive identification. Placed in gown. Bed in low aa5 position. Call light in reach. Side rails up X2. 08:08 site monitor on. Pulse ox on. NIBP on. aa5 08:14 Gary Corado MD is Attending Physician. christiane 08:20 Inserted saline lock: 18 gauge in right upper arm, using aseptic technique. Blood aa5 collected. 08:20 Initial lab(s) drawn, by ar, sent to lab. First set of blood cultures drawn by ar. aa5 08:32 Second set of blood cultures drawn by ar. Inserted saline lock: 20 gauge in right hand, aa5 using aseptic technique. 08:37 Lisette Hein, CALI is Primary Nurse. aa5 09:00 Triage completed. aa5 09:16 Damon Tirado MD is Hospitalizing Provider. christiane 09:22 XRAY Chest (1 view) In Process Unspecified. EDMS 11:26 No provider procedures requiring assistance completed. Patient admitted, IV remains in aa5 place. Administered Medications: 08:45 Drug: Albuterol HFA Inhaler 4 puffs Route: Inhalation; aa5 08:45 Drug: Decadron - Dexamethasone 10 mg Route: IVP; Site: right hand; aa5 09:00 Follow up: Response: No adverse reaction aa5 08:47 Drug: Rocephin 1 grams Route: IV; Rate: per protocol; Site: right hand; aa5 09:00 Follow up: Response: No adverse reaction aa5 08:50 Drug: Lovenox 100 mg Route: Sub-Q; Site: right lower abdomen; aa5 10:18 Follow up: Response: No adverse reaction aa5 09:30 Drug: Tylenol 1000 mg Route: PO; bp 10:18 Follow up: Response: No adverse reaction aa5 10:18 Drug: Lasix 20 mg Route: IVP; Site: right hand; aa5 10:50 Follow up: Response: No adverse reaction aa5 10:18 Drug: Thiamine 100 mg Route: IV; Rate: bolus; Site: right hand; aa5 10:18 Drug: foLIC Acid 1 mg Route: IVPB; Site: right hand; aa5 10:18 Drug: Potassium Effervescent Tablet 50 mEq Route: PO; aa5 10:50 Follow up: Response: No adverse reaction aa5 10:57 Drug: Zithromax 500 mg Route: IVPB; Infused Over: 1 hrs; Site: right upper arm; aa5 11:34 Follow up: IV Status: Infusion continued upon admission aa5 Outcome: 09:19 Decision to Hospitalize by Provider. christiane 11:34 Admitted to Tele accompanied by tech, via wheelchair, with chart, Report called to grace Bennett RN 11:34 Condition: stable 11:34 Instructed on the need for admit. 12:08 Patient left the ED. aa5 Signatures: Dispatcher [employer] EDMS Gary Corado MD MD cha Calderon, Audri, RN RN Rico Linares, CALI RN bp Corrections: (The following items were deleted from the chart) 09:00 08:08 Chief complaint: Patient states: Increased SOB x 2 days ago. Pt reports positive aa for COVID-19 and Pneumonia recently. EMS reports pt's O2 sat was 74% RA upon scene arrival and increased to 88% with non-rebreather. Pt currently 96% per 3 L NC, tachypnea and SOB noted. aa5 11:26 08:30 Social history: Smoking status: Patient denies any tobacco usage or history of. aa5 aa5
--- NOTE | 2019-09-25 09:20 | EDPHYS ---
Physician Documentation [facility] Name: Juan Gloria Age: 59 yrs Sex: Male : 1960 Arrival Date: 09/25/2019 Time: 08:08 Bed 2 Private MD: ED Physician Gary Corado HPI: 09/24 08:19 This 59 yrs old Black Male presents to ER via Unassigned with complaints of covid pos christiane and more sob. 08:19 The patient has shortness of breath at rest, with light activity. Onset: The christiane symptoms/episode began/occurred 3 day(s) ago. Duration: The symptoms are continuous, and are steadily getting worse. The patient's shortness of breath has no apparent modifying factors. Associated signs and symptoms: The patient has no apparent associated signs or symptoms. Severity of symptoms: At their worst the symptoms were moderate in the emergency department the symptoms are unchanged. The patient or guardian reports cough, difficulty breathing, flu symptoms, arthralgias, myalgias. Severity of symptoms: At their worst the symptoms were moderate, in the emergency department the symptoms are unchanged. Modifying factors: The symptoms are alleviated by cool environment, the symptoms are aggravated by cold weather, exertion, talking. Associated signs and symptoms: Pertinent positives: rhinorrhea. Historical: - Allergies: 08:08 No Known Allergies; aa5 - PMHx: 08:08 Hypertension; aa5 - PSHx: 08:08 back surgery; Knee surgery; aa5 - Immunization history:: Adult Immunizations unknown. - Family history:: not pertinent. - Social history:: Smoking status: Patient denies any tobacco usage or history of. ROS: 08:19 Constitutional: Negative for fever, chills, and weight loss, Eyes: Negative for injury, christiane pain, redness, and discharge, ENT: Negative for injury, pain, and discharge, Neck: Negative for injury, pain, and swelling, Cardiovascular: Negative for chest pain, palpitations, and edema, Abdomen/GI: Negative for abdominal pain, nausea, vomiting, diarrhea, and constipation, Back: Negative for injury and pain, : Negative for injury, bleeding, discharge, and swelling, MS/Extremity: Negative for injury and deformity, Skin: Negative for injury, rash, and discoloration, Neuro: Negative for headache, weakness, numbness, tingling, and seizure, Psych: Negative for depression, anxiety, suicide ideation, homicidal ideation, and hallucinations, Allergy/Immunology: Negative for hives, rash, and allergies, Endocrine: Negative for neck swelling, polydipsia, polyuria, polyphagia, and marked weight changes, Hematologic/Lymphatic: Negative for swollen nodes, abnormal bleeding, and unusual bruising. 08:19 Respiratory: Positive for cough, shortness of breath, at rest. 08:19 MS/extremity: Negative for acute changes. Exam: 08:19 Constitutional: This is a well developed, well nourished patient who is awake, alert, christiane and in no acute distress. Head/Face: Normocephalic, atraumatic. Eyes: Pupils equal round and reactive to light, extra-ocular motions intact. Lids and lashes normal. Conjunctiva and sclera are non-icteric and not injected. Cornea within normal limits. Periorbital areas with no swelling, redness, or edema. ENT: Nares patent. No nasal discharge, no septal abnormalities noted. Tympanic membranes are normal and external auditory canals are clear. Oropharynx with no redness, swelling, or masses, exudates, or evidence of obstruction, uvula midline. Mucous membranes moist. Neck: Trachea midline, no thyromegaly or masses palpated, and no cervical lymphadenopathy. Supple, full range of motion without nuchal rigidity, or vertebral point tenderness. No Meningismus. Chest/axilla: Normal chest wall appearance and motion. Nontender with no deformity. No lesions are appreciated. Abdomen/GI: Soft, non-tender, with normal bowel sounds. No distension or tympany. No guarding or rebound. No evidence of tenderness throughout. Back: No spinal tenderness. No costovertebral tenderness. Full range of motion. Male : Normal genitalia with no discharge or lesions. Skin: Warm, dry with normal turgor. Normal color with no rashes, no lesions, and no evidence of cellulitis. MS/ Extremity: Pulses equal, no cyanosis. Neurovascular intact. Full, normal range of motion. Neuro: Awake and alert, GCS 15, oriented to person, place, time, and situation. Cranial nerves II-XII grossly intact. Motor strength 5/5 in all extremities. Sensory grossly intact. Cerebellar exam normal. Normal gait. Psych: Awake, alert, with orientation to person, place and time. Behavior, mood, and affect are within normal limits. 08:19 Cardiovascular: Rate: tachycardic, Rhythm: regular, Pulses: Pulses are 4+ in bilateral radial, brachial, femoral, popliteal, posterior tibial and and dorsalis pedis arteries.. Heart sounds: normal, Edema: is not appreciated, JVD: is not appreciated. 08:19 Respiratory: mild respiratory distress is noted, moderate respiratory distress is noted, Respirations: labored breathing, that is mild, Breath sounds: decreased breath sounds, rhonchi, that are mild, Respiratory rate: 26 08:41 ECG was reviewed by the Attending Physician. [facility] Vital Signs: 08:08 BP 144 / 88; Pulse 110; Resp 38 S; Temp 99.6(O); Pulse Ox 96% on 3 lpm NC; Weight aa5 156.49 kg (R); Height 5 ft. 9 in. (175.26 cm) (R); Pain 0/10; 09:00 BP 152 / 66; Pulse 102; Resp 34 S; Pulse Ox 93% on 4 lpm NC; Pain 0/10; aa5 09:45 BP 144 / 88; Pulse 101; Resp 28 S; Pulse Ox 97% on 4 lpm NC; aa5 10:52 BP 145 / 72; Pulse 96; Resp 24 S; Temp 97.7(O); Pulse Ox 94% on 4 lpm NC; Pain 0/10; aa5 08:08 Body Mass Index 50.95 (156.49 kg, 175.26 cm) aa5 MDM: 08:14 Patient medically screened. [facility] 08:22 Data reviewed: vital signs, nurses notes, lab test result(s), EKG, radiologic studies, [facility] plain films. 09/24 08:18 Order name: Basic Metabolic Panel; Complete Time: 09:14 [facility] 09/24 08:18 Order name: CBC with Diff; Complete Time: 08:58 [facility] 09/24 08:18 Order name: LFT's; Complete Time: 09:14 [facility] 09/24 08:18 Order name: Magnesium; Complete Time: 09:14 [facility] 09/24 08:18 Order name: NT PRO-BNP; Complete Time: 09:14 [facility] 09/24 08:18 Order name: Troponin (emerg Dept Use Only); Complete Time: 09:14 [facility] 09/24 08:18 Order name: XRAY Chest (1 view); Complete Time: 09:41 [facility] 09/24 08:18 Order name: Blood Culture Adult (2) 09/24 08:18 Order name: D-Dimer; Complete Time: 08:58 [facility] 09/24 08:18 Order name: Lactate; Complete Time: 08:58 [facility] 09/24 08:18 Order name: Procalcitonin; Complete Time: 09:41 [facility] 09/24 08:18 Order name: EKG; Complete Time: 08:19 [facility] 09/24 08:18 Order name: Cardiac monitoring; Complete Time: 08:37 [facility] 09/24 08:18 Order name: EKG - Nurse/Tech; Complete Time: 08:37 [facility] 09/24 08:18 Order name: IV Saline Lock; Complete Time: 08:37 [facility] 09/24 08:18 Order name: Labs collected and sent; Complete Time: 08:37 [facility] 09/24 08:18 Order name: O2 Per Protocol; Complete Time: 08:37 [facility] 09/24 08:18 Order name: O2 Sat Monitoring; Complete Time: 08:37 [facility] 09/24 10:54 Order name: Diet Heart Healthy; Complete Time: 10:54 aa5 EC:41 Rate is 106 beats/min. Rhythm is regular. QRS [place] is Normal. CO interval is normal. christiane QRS interval is normal. QT interval is normal. No Q waves. T waves are Normal. No ST changes noted. Clinical impression: NSR w/ Non-specific ST/T Changes and No evidence of ischemia. Interpreted by me. Reviewed by me. Administered Medications: 08:45 Drug: Albuterol HFA Inhaler 4 puffs Route: Inhalation; aa5 08:45 Drug: Decadron - Dexamethasone 10 mg Route: IVP; Site: right hand; aa5 09:00 Follow up: Response: No adverse reaction aa5 08:47 Drug: Rocephin 1 grams Route: IV; Rate: per protocol; Site: right hand; aa5 09:00 Follow up: Response: No adverse reaction aa5 08:50 Drug: Lovenox 100 mg Route: Sub-Q; Site: right lower abdomen; aa5 10:18 Follow up: Response: No adverse reaction aa5 09:30 Drug: Tylenol 1000 mg Route: PO; bp 10:18 Follow up: Response: No adverse reaction aa5 10:18 Drug: Lasix 20 mg Route: IVP; Site: right hand; aa5 10:50 Follow up: Response: No adverse reaction aa5 10:18 Drug: Thiamine 100 mg Route: IV; Rate: bolus; Site: right hand; aa5 10:18 Drug: foLIC Acid 1 mg Route: IVPB; Site: right hand; aa5 10:18 Drug: Potassium Effervescent Tablet 50 mEq Route: PO; aa5 10:50 Follow up: Response: No adverse reaction aa5 10:57 Drug: Zithromax 500 mg Route: IVPB; Infused Over: 1 hrs; Site: right upper arm; aa5 11:34 Follow up: IV Status: Infusion continued upon admission aa5 Disposition: 09/25/19 09:19 Hospitalization ordered by Damon Tirado for Inpatient Admission. Preliminary diagnosis are Dyspnea, Hypoxemia, Obesity, unspecified, Pneumonia due to other specified bacteria - covid positive, Hypokalemia. - Bed requested for Telemetry/MedSurg (Inpatient). - Status is Inpatient Admission. aa5 - Condition is Stable. - Problem is new. - Symptoms have improved. Signatures: Dispatcher [employer] EDMS Gary Corado MD MD cha Calderon, Audri, RN RN aa5 Giovani Mendoza, ROLLER REPAIRER-C ROLLER REPAIRER-Cla1 Rico Cool RN RN Shalonda Fischer Corrections: (The following items were deleted from the chart) 10:12 09:19 Hospitalization Ordered by Damon Tirado MD for Inpatient Admission. Preliminary christiane diagnosis is Dyspnea; Hypoxemia; Obesity, unspecified; Pneumonia due to other specified bacteria - covid positive. Bed requested for Telemetry/MedSurg (Inpatient). Status is Inpatient Admission. Condition is Stable. Problem is new. Symptoms have improved. christiane 10:41 10:12 09/25/2019 09:19 Hospitalization Ordered by Damon Tirado MD for Inpatient eb Admission. Preliminary diagnosis is Dyspnea; Hypoxemia; Obesity, unspecified; Pneumonia due to other specified bacteria - covid positive; Hypokalemia. Bed requested for Telemetry/MedSurg (Inpatient). Status is Inpatient Admission. Condition is Stable. Problem is new. Symptoms have improved. christiane 10:42 10:41 09/25/2019 09:19 Hospitalization Ordered by Damon Tirado MD for Inpatient eb Admission. Preliminary diagnosis is Dyspnea; Hypoxemia; Obesity, unspecified; Pneumonia due to other specified bacteria - covid positive; Hypokalemia. Bed requested for Telemetry/MedSurg (Inpatient). Status is Inpatient Admission. Condition is Stable. Problem is new. Symptoms have improved. eb 11:26 08:30 Social history: Smoking status: Patient denies any tobacco usage or history of. aa5 aa5 11:34 08:18 Urine Dipstick-Ancillary ordered. [place] [id number] 12:08 10:42 09/25/2019 09:19 Hospitalization Ordered by Damon Tirado MD for Inpatient aa5 Admission. Preliminary diagnosis is Dyspnea; Hypoxemia; Obesity, unspecified; Pneumonia due to other specified bacteria - covid positive; Hypokalemia. Bed requested for Telemetry/MedSurg (Inpatient). Status is Inpatient Admission. Condition is Stable. Problem is new. Symptoms have improved. eb
[2019-09-25] MEDS ORDERED: ACETAMINOPHEN 500 MG TAB ONE (09:34)
--- NOTE | 2019-09-25 09:35 | RAD REPORT ---
EXAM DESCRIPTION: RAD - Chest Single View - 09/25/2019 9:22 am CLINICAL HISTORY: DYSPNEA, shortness of breath, dyspnea on exertion, patient history of positive COV ID test COMPARISON: September 21 TECHNIQUE: AP portable chest image was obtained 09/25/2019 9:22 am . FINDINGS: Lung volumes are low. Portable technique and large body habitus also limit evaluation. Airspace opacification has worsened since the September 21 study. Cardiomegaly is present along with vascu lar engorgement. No large pleural effusions seen. No pneumothorax identified. No acute bony abnormali ty seen. No acute aortic findings suspected. IMPRESSION: Worsening bilateral airspace opacification. This is only partly due to a more shallow in spiratory effort. True progression of airspace disease is suspected. If the patient positive COVID history is correct, current findings could indicate worsening bilateral COVID-19 pneumonia.
--- NOTE | 2019-09-25 10:09 | P.HP ---
Certification for Inpatient Patient admitted to: Inpatient With expected LOS: >2 Midnights Patient will require the following post-hospital care: None Practitioner: I am a practitioner with admitting privileges, knowledge of patient current condition, hospital course, and medical plan of care. Services: Services provided to patient in accordance with Admission requirements found in Title 42 Section 412.3 of the Code of Federal Regulations <Giovani Mendoza - Last Filed: 09/25/19 10:05> Patient History Date of Service: 09/25/19 Primary Care Provider: liz Reason for admission: Hypoxia, pneumonia, COVID History of Present Illness: 59-year-old male with medical history of hypertension presents emergency department for worsening shortness of breath. Patient reports that he tested positive for COVID earlier this week on a Friday or Friday. Patient reports that he was doing all right although he was short of breath. Patient reports this morning shortness of breath significantly increase and he had to call 911 to be transferred to hospital. EMS reports patient's room air sats were 74% on seen. In the emergency department patient is tolerating a nasal cannula at 4 L with saturations around 90% that he is dyspneic and tachypneic. ED provider wishes to admit patient for further evaluation and management. - Past Medical/Surgical History Has patient received pneumonia vaccine in the past: No Diabetic: No -: Hypertension -: Knee surgery -: Back surgery -: Ankle surgery Psychosocial/ Personal History: Patient lives at home with his . - Family History Family History: Reviewed- Non-Contributory - Social History Smoking Status: Never smoker Alcohol use: Yes CD- Drugs: No Caffeine use: Yes Place of Residence: Home <Giovani Mendoza - Last Filed: 09/25/19 10:05> Date of Service: 09/25/19 <Yosvany Tirado - Last Filed: 09/25/19 13:52> Allergies No Known Allergies Allergy (Unverified 08/29/16 13:00) Review of Systems 10-point ROS is otherwise unremarkable Respiratory: Cough, Dry, Shortness of Breath <Giovani Mendoza - Last Filed: 09/25/19 10:05> Physical Examination - Physical Exam General: Alert, In no apparent distress, Oriented x3 HEENT: Atraumatic, Normocephalic, PERRLA, Mucous membr. moist/pink Neck: Supple Respiratory: Diminished (Bilaterally), Other (Tachypneic, mild respiratory distress) Cardiovascular: Regular rate/rhythm, Normal S1 S2 Capillary refill: <2 Seconds Gastrointestinal: Normal bowel sounds, Soft and benign Musculoskeletal: No contractures, No erythema, No tenderness Integumentary: No tenderness/swelling, No erythema, No warmth Neurological: Normal speech, Normal strength at 5/5 x4 extr, Normal tone - Studies Laboratory Data (last 24 hrs) 09/25/19 08:20: WBC 8.7 D, Hgb 13.1 L, Hct 40.1, Plt Count 248 D 09/25/19 08:20: Sodium 139, Potassium 3.4 L, BUN 10, Creatinine 0.98, Glucose 115 H, Magnesium 2.3, Total Bilirubin 0.7, AST 80 H, ALT 58, Alkaline Phosphatase 62 <Giovani Mendoza - Last Filed: 09/25/19 10:05> - Studies Laboratory Data (last 24 hrs) 09/25/19 08:20: WBC 8.7 D, Hgb 13.1 L, Hct 40.1, Plt Count 248 D 09/25/19 08:20: Sodium 139, Potassium 3.4 L, BUN 10, Creatinine 0.98, Glucose 115 H, Magnesium 2.3, Total Bilirubin 0.7, AST 80 H, ALT 58, Alkaline Phosphatase 62 <Yosvany Tirado - Last Filed: 09/25/19 13:52> Assessment and Plan - Plan Assessment Acute respiratory failure with hypoxia secondary to bilateral COVID pneumonia Hypertension Obesity Plan Acute respiratory failure with hypoxia secondary to bilateral COVID pneumonia: Patient be admitted for further evaluation and management. Will titrate oxygen delivery to sats of 90%. Pulmonology has been consulted on this case. Continue with IV Decadron, oral thiamine, orals and, oral folic acid. Daily Lasix 20 mg p.o.. Will continue with full anticoagulation with Eliquis 5 mg p.o. b.i.d.. Anticipate clinical improvement next 48 hr. Hypertension: Will continue patient's home medications. Obesity: Counseled on lifestyle changes. Discharge Plan: Home Plan to discharge in: 48 Hours - Advance Directives Does patient have a Living Will: No Does patient have a Durable POA for Healthcare: No - Code Status/Comfort Care Code Status Assessed: Yes (Patient is full code) Critical Care: No Time Spent Managing Pts Care (In Minutes): 55 <Giovani Mendoza - Last Filed: 09/25/19 10:05> - Plan The patient was seen and examined Agree with the assessment and plan as documented by the MELANIE <Yosvany Tirado - Last Filed: 09/25/19 13:52>
[2019-09-25] MEDS ORDERED: FUROSEMIDE 20 MG/ 2ML VIAL ONE (10:17)
[2019-09-25] MEDS ORDERED: THIAMINE 200 MG/2 ML INJ ONE (10:17)
[2019-09-25] MEDS ORDERED: FOLIC ACID 5 MG/ML VIAL ONE (10:18)
[2019-09-25] MEDS ORDERED: POTASSIUM 25 MEQ EFFERV TAB ONE (10:18)
[2019-09-25] MEDS ORDERED: AZITHROMYCIN IV 500 MG in NA CHLORIDE 0.9% 250 ML IVPB ONE (11:00)
[2019-09-25 12:29] VITALS: BMI 50.9
[2019-09-25] MEDS ORDERED: ONDANSETRON 4 MG/2 ML VIAL IV PRN (12:29)
[2019-09-25] MEDS: dexAMETHasone 10 MG/ML VIAL IV SCH (16:04)
[2019-09-25] MEDS: HYDROCODONE/APAP 10/325 TAB PO PRN (16:57)
[2019-09-25] MEDS: APIXABAN 5 MG TABLET PO SCH (20:13)
[2019-09-25] MEDS: BUDESONIDE 0.5 MG/2 ML NEB NEB SCH (20:35)
[2019-09-26] MEDS: dexAMETHasone 10 MG/ML VIAL IV SCH
[2019-09-26 05:56] LABS: Absolute Lymphocytes (CBC) 0.7 K/uL (0.7-4.9); Basophils % 0.4 % (0-1.3); Hematocrit 39.5 % (39.6-49.0); Lymphocytes % 10.6 % (15.3-44.8); MPV 8.1 fL (7.6-11.3); RBC Red Blood Cell Count 5.14 M/uL (4.33-5.43)
[2019-09-26 06:12] LABS: BUN Blood Urea Nitrogen 13 mg/dL (7-18); Bicarbonate 29 mmol/L (21-32); Glucose Level 147 mg/dL (74-106); Magnesium 2.6 mg/dL (1.8-2.4); Potassium 4.2 mmol/L (3.5-5.1); Sodium Level 138 mmol/L (136-145)
--- NOTE | 2019-09-26 07:27 | EKG ---
Test Date: 2019-09-25 Test Time: 08:27:59 Qa Internship: [facility] MEASUREMENT RESULTS: Intervals: Rate: 106 CA: 140 QRSD: 150 QT: 412 QTc: 547 [place]: P: 43 CA: 140 QRS: -57 T: 30 INTERPRETIVE STATEMENTS: Sinus tachycardia Left axis deviation Right bundle branch block Abnormal ECG Compared to ECG 09/22/2019 13:16:28 Sinus rhythm no longer present Electronically Signed On 09-26-19 07:25:11 CDT by Pranay Kumari
[2019-09-26] MEDS: FUROSEMIDE 20 MG TABLET PO SCH (08:03)
[2019-09-26] MEDS: ZINC SULFATE 220 MG CAP PO SCH (08:03)
[2019-09-26] MEDS: APIXABAN 5 MG TABLET PO SCH ×2 (08:04→20:15)
[2019-09-26] MEDS: FOLIC ACID 1 MG TABLET PO SCH (08:04)
[2019-09-26] MEDS: VITAMIN D 1000 UNIT TAB PO SCH (08:07)
[2019-09-26] MEDS: METHYLPREDNISOLONE 40 MG INJ IV SCH ×2 (08:12→20:15)
[2019-09-26] MEDS: HYDROCODONE/APAP 10/325 TAB PO PRN ×3 (08:19→22:28)
[2019-09-26] MEDS: BUDESONIDE 0.5 MG/2 ML NEB NEB SCH ×2 (08:49→19:40)
--- NOTE | 2019-09-26 08:55 | P.PN ---
Subjective Date of Service: 09/26/19 Primary Care Provider: liz Chief Complaint: Hypoxia, pneumonia, COVID Subjective: No new changes <Giovani Mendoza - Last Filed: 09/26/19 08:53> Date of Service: 09/26/19 <Jose Martin Tiradohoady Pak - Last Filed: 09/26/19 11:25> Review of Systems Respiratory: Cough, Dry, Shortness of Breath <Giovani Mendoza - Last Filed: 09/26/19 08:53> Physical Examination - Vital Signs Temperature: 97.1 F Blood Pressure: 149/74 Pulse: 63 Respirations: 22 Pulse Ox (%): 92 - Physical Exam General: Alert, In no apparent distress, Oriented x3 HEENT: Atraumatic Neck: Supple Respiratory: Diminished, Other (Tachypneic/dyspnea) Cardiovascular: Normal pulses, Regular rate/rhythm, Normal S1 S2 Capillary refill: <2 Seconds Gastrointestinal: Normal bowel sounds, Soft and benign Musculoskeletal: No contractures, No erythema, No tenderness Integumentary: No significant lesion, No tenderness/swelling, No erythema Neurological: Normal speech, Normal tone - Studies Laboratory Data (last 24 hrs) 09/25/19 08:20: Sodium 139, Potassium 3.4 L, BUN 10, Creatinine 0.98, Glucose 115 H, Magnesium 2.3, Total Bilirubin 0.7, AST 80 H, ALT 58, Alkaline Phosphatase 62 <Giovani Mendoza - Last Filed: 09/26/19 08:53> Assessment & Plan Discharge Plan: Home Plan to discharge in: Greater than 2 days - Code Status/Comfort Care Code Status Assessed: Yes (Patient is full code) Physician Review Additional Text: Assessment Acute respiratory failure with hypoxia secondary to bilateral COVID pneumonia Hypertension Obesity Plan Acute respiratory failure with hypoxia secondary to bilateral COVID pneumonia: The patient early on high-flow oxygen therapy at 70% FiO2. Will titrate oxygen delivery to sats of 90%. Pulmonology has been consulted on this case. Continue with pulmonology recommendations. Will continue with full anticoagulation with Eliquis 5 mg p.o. b.i.d.. Anticipate clinical improvement next 48 hr to 72 hr. Hypertension: Home medications have been continued. Obesity: Counseled on lifestyle changes. Critical Care: No Time Spent Managing Pts Care (In Minutes): 55 <Giovani Mendoza - Last Filed: 09/26/19 08:53> Physician Review Additional Text: Patient was seen and examined and findings were discussed Agree with the assessment and plan as documented by the MELANIE <Yosvany Tirado - Last Filed: 09/26/19 11:25>
[2019-09-26] MEDS ORDERED: HOME MED 1 EA UNK (Metoprolol Tartrate [Lopressor] 100 MG) PO SCH (09:00)
[2019-09-26] MEDS ORDERED: THIAMINE HCL 100 MG TABLET PO SCH (09:00)
[2019-09-26] MEDS ORDERED: hydroCHLOROthiazide 12.5 MG CAP PO SCH (09:00)
[2019-09-26] MEDS: BUPROPION HCL XL 150 MG TAB PO SCH (09:47)
[2019-09-26] MEDS: AMLODIPINE 10 MG TAB PO SCH (09:47)
--- NOTE | 2019-09-26 13:27 | P.CNS ---
Date of Consult: 09/26/19 Primary Care Provider: hill Chief Complaint: Hypoxia, pneumonia, COVID History of Present Illness: Patient is 59-year-old after neck [place] male [place] history of hypertension admitted with progressive dyspnea he has been tested positive recently admitted with shortness of breath hypoxemia Allergies No Known Allergies Allergy (Unverified 08/29/16 13:00) Home Medications: ALPRAZolam [Xanax*] 1 mg PO BIDP PRN 09/25/19 Amlodipine [Norvasc*] 10 mg PO DAILY 09/25/19 Bupropion *Xl* [Wellbutrin XL] 300 mg PO DAILY 09/25/19 Hydrocodone/Acetaminophen [Hydrocodone-Acetamin 10-325 mg] 1 tab PO QID 09/25/19 Metoprolol Tartrate [Lopressor] 100 mg PO BID 09/25/19 hydroCHLOROthiazide [Hydrochlorothiazide*] 12.5 tab PO DAILY 09/25/19 - Past Medical/Surgical History Diabetic: No -: Hypertension -: Sleep Apnea -: Knee surgery -: Back surgery -: Ankle surgery Psychosocial/ Personal History: Patient lives at home with his . - Family History Father Medical History: Kidney disease Mother Medical History: Cancer - Social History Smoking Status: Current every day smoker Alcohol use: Yes CD- Drugs: No Caffeine use: Yes Place of Residence: Home Physical Examination Temp Pulse Resp BP Pulse Ox 97 F 65 20 144/79 H 90 L 09/26/19 12:00 09/26/19 12:00 09/26/19 12:00 09/26/19 12:00 09/26/19 12:00 - Problems (1) Coronavirus infection Current Visit: Yes Status: Acute Plan: Patient is 59 years of age admitted with respiratory failure secondary to jones virus he does of interstitial changes currently is on high-flow oxygen continue with steroids supplements continue to monitor labs and chemistries reviewed
[2019-09-26] MEDS ORDERED: VANCOMYCIN 1 GM in NA CHLORIDE 0.9% 250 ML IVPB SCH (15:00)
[2019-09-26] MEDS: VANCOMYCIN 2 GM in NA CHLORIDE 0.9% 500 ML IVPB SCH (16:54)
[2019-09-26] MEDS: METOPROLOL TAR 50 MG TAB PO SCH (17:04)
[2019-09-26] MEDS: ATORVASTATIN 40 MG TAB PO SCH (20:15)
[2019-09-26] MEDS: MELATONIN 3 MG TABLET PO SCH (20:15)
[2019-09-26] MEDS: THIAMINE 200 MG/2 ML INJ IVP SCH (20:16)
[2019-09-27] MEDS: VANCOMYCIN 2 GM in NA CHLORIDE 0.9% 500 ML IVPB SCH (04:58)
[2019-09-27] MEDS: METOPROLOL TAR 50 MG TAB PO SCH ×2 (05:00→17:04)
[2019-09-27 05:55] LABS: Absolute Lymphocytes (CBC) 0.9 K/uL (0.7-4.9); Basophils % 0.2 % (0-1.3); Hematocrit 37.8 % (39.6-49.0); Lymphocytes % 10.7 % (15.3-44.8); MPV 8.4 fL (7.6-11.3); RBC Red Blood Cell Count 4.95 M/uL (4.33-5.43)
[2019-09-27 06:03] LABS: BUN Blood Urea Nitrogen 15 mg/dL (7-18); Bicarbonate 27 mmol/L (21-32); Glucose Level 157 mg/dL (74-106); Magnesium 2.8 mg/dL (1.8-2.4); Potassium 4.5 mmol/L (3.5-5.1); Sodium Level 136 mmol/L (136-145)
[2019-09-27] MEDS: BUPROPION HCL XL 150 MG TAB PO SCH (07:33)
[2019-09-27] MEDS: FUROSEMIDE 20 MG TABLET PO SCH (07:35)
[2019-09-27] MEDS: METHYLPREDNISOLONE 40 MG INJ IV SCH (07:35)
[2019-09-27] MEDS: ZINC SULFATE 220 MG CAP PO SCH (07:35)
[2019-09-27] MEDS: THIAMINE 200 MG/2 ML INJ IVP SCH ×2 (07:35→20:51)
[2019-09-27] MEDS: VITAMIN D 1000 UNIT TAB PO SCH (07:36)
[2019-09-27] MEDS: FOLIC ACID 1 MG TABLET PO SCH (07:36)
[2019-09-27] MEDS: APIXABAN 5 MG TABLET PO SCH ×2 (07:36→20:46)
[2019-09-27] MEDS: AMLODIPINE 10 MG TAB PO SCH (07:36)
[2019-09-27] MEDS: BUDESONIDE 0.5 MG/2 ML NEB NEB SCH ×2 (09:20→20:30)
--- NOTE | 2019-09-27 09:52 | P.PN ---
Subjective Date of Service: 09/27/19 Primary Care Provider: liz Chief Complaint: Hypoxia, pneumonia, COVID Subjective: No C/O voiced <Giovani Mendoza - Last Filed: 09/27/19 09:50> Date of Service: 09/27/19 <Yosvany Tirado - Last Filed: 09/27/19 15:20> Review of Systems 10-point ROS is otherwise unremarkable Respiratory: Cough, Dry, Shortness of Breath <Giovani Mendoza - Last Filed: 09/27/19 09:50> Physical Examination - Vital Signs Temperature: 96.8 F Blood Pressure: 135/66 Pulse: 59 Respirations: 25 Pulse Ox (%): 90 - Physical Exam General: Alert, In no apparent distress HEENT: Atraumatic, PERRLA, EOMI Neck: Supple, JVD not distended Respiratory: Diminished Cardiovascular: Regular rate/rhythm, Normal S1 S2 Gastrointestinal: Normal bowel sounds, No tenderness Musculoskeletal: No tenderness Integumentary: No rashes Neurological: Normal speech, Normal tone, Normal affect Lymphatics: No axilla or inguinal lymphadenopathy - Studies Microbiology Data (last 24 hrs): 09/25/19 08:32 Blood - Blood Blood Culture Gram Stain - Final Medications List Reviewed: Yes <Giovani Mendoza - Last Filed: 09/27/19 09:50> - Studies Microbiology Data (last 24 hrs): 09/25/19 08:32 Blood - Blood Blood Culture Gram Stain - Final <Yosvany Tirado - Last Filed: 09/27/19 15:20> Assessment & Plan Discharge Plan: Home Plan to discharge in: 48 Hours - Code Status/Comfort Care Code Status Assessed: Yes (Patient is full code) Physician Review Additional Text: Assessment Acute respiratory failure with hypoxia secondary to bilateral COVID pneumonia Hypertension Obesity Plan Acute respiratory failure with hypoxia secondary to bilateral COVID pneumonia: The patient is doing well on on high-flow oxygen therapy at 70% FiO2. Will titrate oxygen delivery to sats of 90%. Pulmonology has been consulted on this case. Continue with pulmonology recommendations. Will continue with full anticoagulation. Anticipate clinical improvement next 48 hr to 72 hr. Patient will likely require home oxygen at discharge. When patient is eating close to being ready for discharge recommend consult respiratory therapy and social work for home oxygen. Hypertension: Home medications have been continued. Obesity: Counseled on lifestyle changes. Critical Care: No Time Spent Managing Pts Care (In Minutes): 55 <Giovani Mendoza - Last Filed: 09/27/19 09:50> Physician Review Additional Text: Patient was seen and examined and findings were discussed Agree with the assessment and plan as documented by the MELANIE <Yosvany Tirado - Last Filed: 09/27/19 15:20>
[2019-09-27] MEDS ORDERED: METHYLPREDNISOLONE 125 MG INJ IV ONE (12:47)
--- NOTE | 2019-09-27 12:51 | P.PN ---
Subjective Date of Service: 09/27/19 Primary Care Provider: hill Chief Complaint: Respiratory failure from jones virus Patient is still very hypoxic requiring BiPAP he still requiring high concentrations of oxygen Review of Systems General: Weakness Respiratory: Shortness of Breath Physical Examination - Vital Signs Temperature: 97.2 F Blood Pressure: 141/74 Pulse: 64 Respirations: 36 Pulse Ox (%): 89 - Studies Microbiology Data (last 24 hrs): 09/25/19 08:32 Blood - Blood Blood Culture Gram Stain - Final Medications List Reviewed: Yes Assessment & Plan - Problems (Diagnosis) (1) Coronavirus infection Current Visit: Yes Status: Acute Plan: Patient has respiratory failure from coronal virus still on high concentrations of oxygen and given additional doses of steroids Dc vancomycin the no fever continue to monitor
[2019-09-27] MEDS: MELATONIN 3 MG TABLET PO SCH (20:46)
[2019-09-27] MEDS: ATORVASTATIN 40 MG TAB PO SCH (20:46)
[2019-09-27] MEDS: METHYLPREDNISOLONE 125 MG INJ IV SCH (20:49)
[2019-09-28 05:51] LABS: Absolute Lymphocytes (CBC) 0.8 K/uL (0.7-4.9); Basophils % 0.5 % (0-1.3); Hematocrit 38.3 % (39.6-49.0); MPV 8.3 fL (7.6-11.3)
[2019-09-28 06:02] LABS: BUN Blood Urea Nitrogen 18 mg/dL (7-18); Bicarbonate 30 mmol/L (21-32); Glucose Level 169 mg/dL (74-106); Magnesium 2.7 mg/dL (1.8-2.4); Potassium 5.1 mmol/L (3.5-5.1); Sodium Level 138 mmol/L (136-145)
[2019-09-28] MEDS: BUPROPION HCL XL 150 MG TAB PO SCH (07:35)
[2019-09-28] MEDS: VITAMIN D 1000 UNIT TAB PO SCH (07:35)
[2019-09-28] MEDS: FUROSEMIDE 20 MG TABLET PO SCH (07:35)
[2019-09-28] MEDS: APIXABAN 5 MG TABLET PO SCH ×2 (07:35→20:37)
[2019-09-28] MEDS: ZINC SULFATE 220 MG CAP PO SCH (07:35)
[2019-09-28] MEDS: FOLIC ACID 1 MG TABLET PO SCH (07:35)
[2019-09-28] MEDS: THIAMINE 200 MG/2 ML INJ IVP SCH ×2 (07:36→20:37)
[2019-09-28] MEDS: AMLODIPINE 10 MG TAB PO SCH (07:36)
[2019-09-28] MEDS: METHYLPREDNISOLONE 125 MG INJ IV SCH ×2 (07:37→20:35)
[2019-09-28] MEDS: BUDESONIDE 0.5 MG/2 ML NEB NEB SCH ×2 (09:25→20:42)
--- NOTE | 2019-09-28 11:21 | P.PN ---
Subjective Date of Service: 09/28/19 Primary Care Provider: Ramírez Chief Complaint: Respiratory failure from jones virus Subjective: Tolerating diet, Improving (slowly), Other Review of Systems General: As per HPI Eyes: Unremarkable ENT: Unremarkable Respiratory: Shortness of Breath, SOB with Excertion Cardiovascular: Unremarkable Gastrointestinal: Unremarkable Genitourinary: Unremarkable Musculoskeletal: Unremarkable Integumentary: Unremarkable Neurological: Unremarkable Physical Examination - Vital Signs Temperature: 97.0 F Blood Pressure: 140/79 Pulse: 56 Respirations: 19 Pulse Ox (%): 98 - Physical Exam General: Alert, In no apparent distress, Oriented x3 HEENT: Atraumatic, Normocephalic, PERRLA Neck: Supple, Other (Trachea midline) Respiratory: Diminished Cardiovascular: No edema, Normal pulses, Regular rate/rhythm Capillary refill: <2 Seconds Gastrointestinal: Normal bowel sounds, Soft and benign, Non-distended Musculoskeletal: No swelling, No erythema, No tenderness Integumentary: No breakdown, No significant lesion, No tenderness/swelling Neurological: Normal speech, Normal strength at 5/5 x4 extr, Normal tone - Studies Microbiology Data (last 24 hrs): 09/25/19 08:32 Blood - Blood Blood Culture Gram Stain - Final Medications List Reviewed: Yes Assessment And Plan - Plan Assessment Acute respiratory failure with hypoxia secondary to bilateral COVID pneumonia: Hypertension: Obesity: Plan Acute respiratory failure with hypoxia secondary to bilateral COVID pneumonia: Patient currently on CPAP BiPAP. Will continue to try to wean patient off CPAP/BiPAP. Pulmonology following. Continue with pulmonology recommendations. Continue methylprednisone at 80 mg Q12hrs. Will continue with full anticoagulation. Anticipate clinical improvement next 48 hr to 72 hr. Patient will likely require home oxygen at discharge. Tolerating p.o. diet but still requiring significant O2 support. Patient cannot be discharged on to weaned off of O2 support down to 4 L nasal cannula. Hypertension: Stable. Home medications have been continued. Obesity: Counseled on lifestyle changes. Discharge Plan: Home Plan to discharge in: 48 Hours - Code Status/Comfort Care Code Status Assessed: Yes Physician Review Additional Text: Patient was seen and examined and findings were discussed Agree with the assessment and plan as documented by the MELANIE Time Spent Managing PTS Care (In Minutes): 50
--- NOTE | 2019-09-28 16:29 | P.PN ---
Subjective Date of Service: 09/28/19 Primary Care Provider: Ramírez Chief Complaint: Respiratory failure from jones virus Doing much better he is currently on CPAP oxygenation is improved Physical Examination - Vital Signs Temperature: 97 F Blood Pressure: 138/68 Pulse: 74 Respirations: 23 Pulse Ox (%): 98 - Studies Medications List Reviewed: Yes Assessment & Plan - Problems (Diagnosis) (1) Coronavirus infection Current Visit: Yes Status: Acute Plan: Patient is improving titrate to nasal cannula oxygen may need home oxygen plan for discharge check a CRP levels tomorrow CRP level is declined by 50%
[2019-09-28] MEDS: METOPROLOL TAR 50 MG TAB PO SCH (17:07)
[2019-09-28] MEDS: HYDROCODONE/APAP 10/325 TAB PO PRN (18:09)
[2019-09-28] MEDS: MELATONIN 3 MG TABLET PO SCH (20:37)
[2019-09-28] MEDS: ATORVASTATIN 40 MG TAB PO SCH (20:37)
[2019-09-29] MEDS: METOPROLOL TAR 50 MG TAB PO SCH ×2 (05:12→17:06)
[2019-09-29 05:42] LABS: Absolute Lymphocytes (CBC) 0.9 K/uL (0.7-4.9); Basophils % 0.1 % (0-1.3); Hematocrit 38.5 % (39.6-49.0); MPV 8.3 fL (7.6-11.3); RBC Red Blood Cell Count 5.05 M/uL (4.33-5.43)
[2019-09-29 05:57] LABS: BUN Blood Urea Nitrogen 20 mg/dL (7-18); Bicarbonate 28 mmol/L (21-32); Glucose Level 196 mg/dL (74-106); Sodium Level 136 mmol/L (136-145)
[2019-09-29] MEDS: BUDESONIDE 0.5 MG/2 ML NEB NEB SCH (08:20)
[2019-09-29] MEDS: THIAMINE 200 MG/2 ML INJ IVP SCH ×2 (08:48→20:05)
[2019-09-29] MEDS: ZINC SULFATE 220 MG CAP PO SCH (08:48)
[2019-09-29] MEDS: FOLIC ACID 1 MG TABLET PO SCH (08:48)
[2019-09-29] MEDS: BUPROPION HCL XL 150 MG TAB PO SCH (08:48)
[2019-09-29] MEDS: METHYLPREDNISOLONE 125 MG INJ IV SCH ×2 (08:49→17:00)
[2019-09-29] MEDS: AMLODIPINE 10 MG TAB PO SCH (08:49)
[2019-09-29] MEDS: VITAMIN D 1000 UNIT TAB PO SCH (08:49)
[2019-09-29] MEDS: APIXABAN 5 MG TABLET PO SCH ×2 (08:49→20:05)
[2019-09-29] MEDS: FUROSEMIDE 20 MG TABLET PO SCH (08:49)
[2019-09-29 10:19] LABS: Blood Morphology Comment NOT SEEN (NOT SEEN); Platelet Estimate ADEQ; Urine White Blood Cell Casts OK
[2019-09-29] MEDS ORDERED: METHYLPREDNISOLONE 125 MG INJ IV SCH (13:00)
--- NOTE | 2019-09-29 14:52 | RAD REPORT ---
EXAM DESCRIPTION: RAD - Chest Single View - 09/29/2019 2:15 pm CLINICAL HISTORY: pneumonia, COVID pneumonia COMPARISON: Portable September 24 TECHNIQUE: AP portable chest image was obtained 09/29/2019 2:15 pm . FINDINGS: Lung volumes are low. Bilateral airspace opacification is present showing improvement from the prior imaging. Heart and vasculature are normal. No measurable pleural effusion and no pneumotho rax. No acute bony abnormality seen. No acute aortic findings suspected. IMPRESSION: Bilateral pneumonia pattern has improved. There is significant infiltrate remaining.
--- NOTE | 2019-09-29 15:47 | P.PN ---
Subjective Date of Service: 09/29/19 Primary Care Provider: Ramírez Chief Complaint: Respiratory failure from jones virus Subjective: New changes (Requiring more O2 support. Now on BiPAP/CPAP) Review of Systems General: As per HPI Eyes: Unremarkable ENT: Unremarkable Respiratory: Shortness of Breath, SOB with Excertion Cardiovascular: Unremarkable Gastrointestinal: Unremarkable Genitourinary: Unremarkable Musculoskeletal: Unremarkable Integumentary: Unremarkable Neurological: Unremarkable Physical Examination - Vital Signs Temperature: 97.3 F Blood Pressure: 140/69 Pulse: 55 Respirations: 30 Pulse Ox (%): 93 - Physical Exam General: Alert, In no apparent distress, Oriented x3, Obese HEENT: Atraumatic, Normocephalic, PERRLA Neck: Supple, No Thyromegaly, Other (Trachea midline) Respiratory: Diminished, Other (On CPAP/BiPAP) Cardiovascular: No edema, Normal pulses, No murmurs Capillary refill: <2 Seconds Gastrointestinal: Normal bowel sounds, Soft and benign, Non-distended Musculoskeletal: No swelling, No contractures, No erythema Integumentary: No breakdown, No significant lesion, No tenderness/swelling Neurological: Normal speech, Normal strength at 5/5 x4 extr, Normal tone, Normal affect - Studies Medications List Reviewed: Yes Assessment And Plan - Plan Assessment Acute respiratory failure with hypoxia secondary to bilateral COVID pneumonia: Hypertension: Obesity: Plan Acute respiratory failure with hypoxia secondary to bilateral COVID pneumonia: Patient currently on CPAP BiPAP and still requiring significant O2 support. Tried to wean patient down to high-flow nasal cannula. Patient tolerated therapy for a little bit but had more difficulty with breathing and was placed back on BiPAP/CPAP. Will continue to try to wean patient off CPAP/BiPAP. Pulmonology following. Continue with pulmonology recommendations. Will stop the budesonide. Continue methylprednisone at 125 mg q.8 hr. Will continue with full anticoagulation with Eliquis. Anticipate clinical improvement next 48 hr to 72 hr. Patient will likely require home oxygen at discharge. Tolerating p.o. diet. Patient cannot be discharged until weaned off of O2 support down to 4 L nasal cannula. Hypertension: Stable. Home medications have been continued. Obesity: Counseled on lifestyle changes. Discharge Plan: Home Plan to discharge in: 72 Hours - Code Status/Comfort Care Code Status Assessed: Yes Physician Review Additional Text: Patient was seen and examined and findings were discussed Agree with the assessment and plan as documented by the MELANIE Time Spent Managing PTS Care (In Minutes): 50
--- NOTE | 2019-09-29 16:23 | P.PN ---
Subjective Date of Service: 09/29/19 Primary Care Provider: Ramírez Chief Complaint: Respiratory failure from jones virus Still requiring significant amount of oxygen on CPAP unable to titrate his O2 Physical Examination - Vital Signs Temperature: 97.3 F Blood Pressure: 140/69 Pulse: 55 Respirations: 30 Pulse Ox (%): 93 - Studies Medications List Reviewed: Yes Assessment & Plan - Problems (Diagnosis) (1) Coronavirus infection Current Visit: Yes Status: Acute Plan: Pneumonia due to jones virus the secondary respiratory failure patient's C- reactive protein is declining he continues to remain hypoxic and requiring BiPAP patient's steroids have been increased
[2019-09-29] MEDS: ATORVASTATIN 40 MG TAB PO SCH (20:05)
[2019-09-29] MEDS: MELATONIN 3 MG TABLET PO SCH (20:05)
[2019-09-29] MEDS: HYDROCODONE/APAP 10/325 TAB PO PRN (20:15)
[2019-09-30] MEDS: METHYLPREDNISOLONE 125 MG INJ IV SCH ×3 (00:37→16:56)
[2019-09-30] MEDS: METOPROLOL TAR 50 MG TAB PO SCH ×2 (05:03→16:56)
[2019-09-30 06:27] LABS: Absolute Lymphocytes (CBC) 0.5 K/uL (0.7-4.9); Basophils % 0.5 % (0-1.3); Hematocrit 39.7 % (39.6-49.0); Lymphocytes % 4.1 % (15.3-44.8); MPV 8.4 fL (7.6-11.3); RBC Red Blood Cell Count 5.13 M/uL (4.33-5.43)
[2019-09-30 06:39] LABS: BUN Blood Urea Nitrogen 21 mg/dL (7-18); Bicarbonate 30 mmol/L (21-32); C-Reactive Protein 6.01 mg/L (<3.00); Glucose Level 340 mg/dL (74-106); Potassium 5.2 mmol/L (3.5-5.1); Sodium Level 135 mmol/L (136-145)
[2019-09-30] MEDS: FUROSEMIDE 20 MG TABLET PO SCH (08:06)
[2019-09-30] MEDS: APIXABAN 5 MG TABLET PO SCH ×2 (08:06→20:05)
[2019-09-30] MEDS: AMLODIPINE 10 MG TAB PO SCH (08:07)
[2019-09-30] MEDS: THIAMINE 200 MG/2 ML INJ IVP SCH ×2 (08:07→20:05)
[2019-09-30] MEDS: VITAMIN D 1000 UNIT TAB PO SCH (08:07)
[2019-09-30] MEDS: FOLIC ACID 1 MG TABLET PO SCH (08:07)
[2019-09-30] MEDS: ZINC SULFATE 220 MG CAP PO SCH (08:07)
--- NOTE | 2019-09-30 09:38 | P.PN ---
Subjective Date of Service: 09/30/19 Primary Care Provider: Ramírez Chief Complaint: Respiratory failure from jones virus Subjective: Tolerating diet (Happy to be off BiPAP/CPAP and on high-flow.), Improving, Doing well Review of Systems General: As per HPI Eyes: Unremarkable ENT: Unremarkable Respiratory: Cough, Shortness of Breath, SOB with Excertion Cardiovascular: Unremarkable Gastrointestinal: Unremarkable Genitourinary: Unremarkable Musculoskeletal: Unremarkable Integumentary: Unremarkable Neurological: Unremarkable Physical Examination - Vital Signs Temperature: 97.2 F Blood Pressure: 140/81 Pulse: 56 Respirations: 24 Pulse Ox (%): 90 - Physical Exam General: Alert, In no apparent distress, Oriented x3, Cooperative HEENT: Atraumatic, Normocephalic, PERRLA Neck: Supple, No Thyromegaly Respiratory: Clear to auscultation bilaterally, Diminished Cardiovascular: No edema, Normal pulses, Normal S1 S2, No murmurs Capillary refill: <2 Seconds Gastrointestinal: Normal bowel sounds, Soft and benign, Non-distended, No tenderness Musculoskeletal: No contractures, No erythema, No tenderness Integumentary: No significant lesion, No tenderness/swelling, No erythema Neurological: Normal speech, Normal strength at 5/5 x4 extr, Normal tone - Studies Microbiology Data (last 24 hrs): 09/25/19 08:32 Blood - Blood Aerobic Blood Culture - Final 09/25/19 08:32 Blood - Blood Blood Culture Gram Stain - Final 09/25/19 08:32 Blood - Blood Anaerobic Blood Culture - Final No growth in 5 days. 09/25/19 08:20 Blood - Blood Aerobic Blood Culture - Final No growth in 5 days. 09/25/19 08:20 Blood - Blood Anaerobic Blood Culture - Final No growth in 5 days. Medications List Reviewed: Yes Assessment And Plan - Plan Assessment Acute respiratory failure with hypoxia secondary to bilateral COVID pneumonia: Hypertension: Obesity: Plan Acute respiratory failure with hypoxia secondary to bilateral COVID pneumonia: Patient was able to come off the BiPAP/CPAP machine and is currently on high- flow at 90% on 20 L. States he is improving and of more able to sit in the chair without feeling short of breath. Will continue to try to wean patient off high-flow. Pulmonology following. Continue with pulmonology recommendations. Continue methylprednisone at 125 mg q.8 hr. Will continue with full anticoagulation with Eliquis. Continue to trend CRP. CRP trending down. Anticipate clinical improvement next 48 hr to 72 hr. Patient will likely require home oxygen at discharge. Tolerating p.o. diet. Patient cannot be discharged until weaned off of O2 support down to 4 L nasal cannula. Hypertension: Stable. Home medications have been continued. Obesity: Counseled on lifestyle changes. Discharge Plan: Home Plan to discharge in: 48 Hours - Code Status/Comfort Care Code Status Assessed: Yes Physician Review Additional Text: Patient was seen and examined and findings were discussed Agree with the assessment and plan as documented by the MELANIE Time Spent Managing PTS Care (In Minutes): 45
[2019-09-30 11:09] LABS: Blood Gas Oxyhemoglobin 78.6 % (94-97); Blood O2 Saturation 80.4 % (92-98.5)
[2019-09-30] MEDS: ATORVASTATIN 40 MG TAB PO SCH (20:05)
[2019-09-30] MEDS: MELATONIN 3 MG TABLET PO SCH (20:05)
[2019-10-01] MEDS: METHYLPREDNISOLONE 125 MG INJ IV SCH (00:06)
[2019-10-01] MEDS: METOPROLOL TAR 50 MG TAB PO SCH ×2 (05:48→17:42)
[2019-10-01 05:55] LABS: Absolute Lymphocytes (CBC) 0.5 K/uL (0.7-4.9); Hematocrit 39.2 % (39.6-49.0); Lymphocytes % 4.3 % (15.3-44.8); MPV 8.6 fL (7.6-11.3); RBC Red Blood Cell Count 5.05 M/uL (4.33-5.43)
[2019-10-01 06:19] LABS: BUN Blood Urea Nitrogen 23 mg/dL (7-18); Bicarbonate 29 mmol/L (21-32); Potassium 4.9 mmol/L (3.5-5.1); Sodium Level 134 mmol/L (136-145)
[2019-10-01 06:24] LABS: C-Reactive Protein < 2.90 mg/L (<3.00); Glucose Level 459 mg/dL (74-106)
[2019-10-01] MEDS ORDERED: INSULIN 70/30 100 UNITS/ML SQ ONE (06:55)
[2019-10-01] MEDS ORDERED: GLUCAGON 1 MG/VIAL IM PRN ×2 (07:41)
[2019-10-01] MEDS ORDERED: D50W 25 GM/50 ML SYRINGE/VIAL IV PRN ×2 (07:41)
[2019-10-01] MEDS ORDERED: METHYLPREDNISOLONE 125 MG INJ IV SCH (09:00)
[2019-10-01] MEDS: INSULIN GLARGINE 100 UNITS/ML SQ SCH ×2 (09:16→20:59)
[2019-10-01] MEDS: VITAMIN D 1000 UNIT TAB PO SCH (09:18)
[2019-10-01] MEDS: FUROSEMIDE 20 MG TABLET PO SCH (09:19)
[2019-10-01] MEDS: APIXABAN 5 MG TABLET PO SCH ×2 (09:20→20:58)
[2019-10-01] MEDS: ZINC SULFATE 220 MG CAP PO SCH (09:20)
[2019-10-01] MEDS: AMLODIPINE 10 MG TAB PO SCH (09:20)
[2019-10-01] MEDS: FOLIC ACID 1 MG TABLET PO SCH (09:20)
[2019-10-01] MEDS: THIAMINE 200 MG/2 ML INJ IVP SCH (09:23)
[2019-10-01] MEDS: HYDROCODONE/APAP 10/325 TAB PO PRN (09:27)
--- NOTE | 2019-10-01 10:56 | P.PN ---
Subjective Date of Service: 09/30/19 Primary Care Provider: Ramírez Chief Complaint: Respiratory failure from jones virus Patient is still requiring high concentrations of oxygen and BiPAP unable to wean blood gases still show significant hypoxemia always feeling better Physical Examination - Vital Signs Temperature: 98.5 F Blood Pressure: 134/74 Pulse: 75 Respirations: 21 Pulse Ox (%): 97 - Studies Microbiology Data (last 24 hrs): 09/25/19 08:32 Blood - Blood Aerobic Blood Culture - Final 09/25/19 08:32 Blood - Blood Blood Culture Gram Stain - Final 09/25/19 08:32 Blood - Blood Anaerobic Blood Culture - Final No growth in 5 days. 09/25/19 08:20 Blood - Blood Aerobic Blood Culture - Final No growth in 5 days. 09/25/19 08:20 Blood - Blood Anaerobic Blood Culture - Final No growth in 5 days. Medications List Reviewed: Yes Assessment & Plan - Problems (Diagnosis) (1) Coronavirus infection Current Visit: Yes Status: Acute Plan: Patient has respiratory failure from jones virus infection subjectively improving although requiring high concentrations of oxygen CRP is have reduced significantly continue to monitor titrate steroids based on CRP level
--- NOTE | 2019-10-01 10:57 | P.PN ---
Subjective Date of Service: 10/01/19 Primary Care Provider: Ramírez Chief Complaint: Respiratory failure from jones virus Patient is doing much better today he has a nasal cannula oxygen looking better Physical Examination - Vital Signs Temperature: 98.5 F Blood Pressure: 134/74 Pulse: 75 Respirations: 21 Pulse Ox (%): 97 - Studies Microbiology Data (last 24 hrs): 09/25/19 08:32 Blood - Blood Aerobic Blood Culture - Final 09/25/19 08:32 Blood - Blood Blood Culture Gram Stain - Final 09/25/19 08:32 Blood - Blood Anaerobic Blood Culture - Final No growth in 5 days. 09/25/19 08:20 Blood - Blood Aerobic Blood Culture - Final No growth in 5 days. 09/25/19 08:20 Blood - Blood Anaerobic Blood Culture - Final No growth in 5 days. Medications List Reviewed: Yes Assessment & Plan - Problems (Diagnosis) (1) Coronavirus infection Current Visit: Yes Status: Acute Plan: Respiratory failure is he is improving CRP is now normal blood sugars elevated increase increase insulin dose reduce the dose of steroids no IV access change to p.o. setup for home O2
--- NOTE | 2019-10-01 11:05 | P.PN ---
Subjective Date of Service: 10/01/19 Primary Care Provider: Ramírez Chief Complaint: Respiratory failure from jones virus Subjective: Tolerating diet, Improving, Doing well (CRP is in normal range this morning. Weaning off of high-flow O2. Tolerating p.o. diet.) Review of Systems General: As per HPI Eyes: Unremarkable ENT: Unremarkable Respiratory: As per HPI Cardiovascular: Unremarkable Gastrointestinal: Unremarkable Genitourinary: Unremarkable Musculoskeletal: Unremarkable Integumentary: Unremarkable Neurological: Unremarkable Physical Examination - Vital Signs Temperature: 98.5 F Blood Pressure: 134/74 Pulse: 75 Respirations: 21 Pulse Ox (%): 97 - Physical Exam General: Alert, In no apparent distress, Oriented x3 HEENT: Atraumatic, Normocephalic Neck: Supple, No Thyromegaly Respiratory: Clear to auscultation bilaterally, Diminished Cardiovascular: No edema, Normal pulses, Regular rate/rhythm, Normal S1 S2 Capillary refill: <2 Seconds Gastrointestinal: Normal bowel sounds, Soft and benign, Non-distended Musculoskeletal: No swelling, No contractures, No erythema, No tenderness Integumentary: No rashes, No significant lesion, No tenderness/swelling Neurological: Normal gait, Normal speech, Normal strength at 5/5 x4 extr, Normal tone - Studies Microbiology Data (last 24 hrs): 09/25/19 08:32 Blood - Blood Aerobic Blood Culture - Final 09/25/19 08:32 Blood - Blood Blood Culture Gram Stain - Final 09/25/19 08:32 Blood - Blood Anaerobic Blood Culture - Final No growth in 5 days. 09/25/19 08:20 Blood - Blood Aerobic Blood Culture - Final No growth in 5 days. 09/25/19 08:20 Blood - Blood Anaerobic Blood Culture - Final No growth in 5 days. Medications List Reviewed: Yes Assessment And Plan - Plan Assessment Acute respiratory failure with hypoxia secondary to bilateral COVID pneumonia: Hypertension: Obesity: Plan Acute respiratory failure with hypoxia secondary to bilateral COVID pneumonia: Patient was able to come off the BiPAP/CPAP machine yesterday. Currently on high-flow at 55% on 20 L down from 90% yesterday. Continue slowly improving. States he feels better and is more able to sit in the chair without feeling short of breath. Will continue to try to wean patient off high-flow. Pulmonology following. Continue with pulmonology recommendations. Continue methylprednisone at 80 mg q.12 hr p.o. Will continue with full anticoagulation with Eliquis. Continue to trend CRP. CRP trending down. CRP level today of less than 2.9. Anticipate clinical improvement next 48 hr to 72 hr. Patient will likely require home oxygen at discharge. Tolerating p.o. diet. Patient cannot be discharged until weaned off of O2 support down to 4 L nasal cannula. Hypertension: Stable. Home medications have been continued. Obesity: Counseled on lifestyle changes. Discharge Plan: Home Plan to discharge in: 72 Hours - Code Status/Comfort Care Code Status Assessed: Yes Physician Review Additional Text: Patient was seen and examined and findings were discussed Agree with the assessment and plan as documented by the MELANIE Time Spent Managing PTS Care (In Minutes): 55
[2019-10-01] MEDS: INSULIN -REGULAR HUMAN 50 UNIT/0.5 ML ML SQ SCH ×3 (13:00→21:00)
[2019-10-01] MEDS: GUAIFENESIN/CODEINE 5ML UCUP PO PRN (18:33)
[2019-10-01] MEDS: MELATONIN 3 MG TABLET PO SCH (20:58)
[2019-10-01] MEDS ORDERED: predniSONE 20 MG TAB PO SCH (21:00)
[2019-10-01] MEDS: ATORVASTATIN 40 MG TAB PO SCH (21:05)
[2019-10-01] MEDS ORDERED: LORazepam 2 MG/ML VIAL IV ONE (23:15)
[2019-10-02] MEDS: METOPROLOL TAR 50 MG TAB PO SCH ×2 (06:00→17:44)
--- NOTE | 2019-10-02 08:56 | P.PN ---
Subjective Date of Service: 10/02/19 (TV) Primary Care Provider: Ramírez Chief Complaint: Respiratory failure from jones virus Doing better ocomplaints Physical Examination - Vital Signs Temperature: 97.7 F Blood Pressure: 126/75 Pulse: 55 Respirations: 23 Pulse Ox (%): 99 - Studies Medications List Reviewed: Yes Assessment & Plan - Problems (Diagnosis) (1) Coronavirus infection Current Visit: Yes Status: Acute Plan: Better. CRP now normal. Change to nasal canula and plan for Discharge on 20 BID of pred and MVI and anticoagulants
[2019-10-02] MEDS: AMLODIPINE 10 MG TAB PO SCH (09:24)
[2019-10-02] MEDS: THIAMINE HCL 100 MG TABLET PO SCH (09:24)
[2019-10-02] MEDS: ZINC SULFATE 220 MG CAP PO SCH (09:24)
[2019-10-02] MEDS: VITAMIN D 1000 UNIT TAB PO SCH (09:25)
[2019-10-02] MEDS: FOLIC ACID 1 MG TABLET PO SCH (09:25)
[2019-10-02] MEDS: FUROSEMIDE 20 MG TABLET PO SCH (09:25)
[2019-10-02] MEDS: APIXABAN 5 MG TABLET PO SCH ×2 (09:25→20:29)
[2019-10-02] MEDS: INSULIN -REGULAR HUMAN 50 UNIT/0.5 ML ML SQ SCH ×4 (09:25→20:31)
[2019-10-02] MEDS: predniSONE 20 MG TAB PO SCH ×3 (09:28→20:30)
[2019-10-02] MEDS: INSULIN GLARGINE 100 UNITS/ML SQ SCH ×2 (09:31→20:31)
--- NOTE | 2019-10-02 11:28 | P.PN ---
Subjective Date of Service: 10/02/19 Primary Care Provider: Darrell Chief Complaint: Respiratory failure from jones virus Subjective: Improving, Doing well Still requiring CPAP BiPAP at night. Slowly weaning down on high-flow. Currently on 40% down from 55% yesterday. <SidneyTan - Last Filed: 10/02/19 11:21> Date of Service: 10/02/19 <Sharad Motta - Last Filed: 10/02/19 17:26> Review of Systems General: As per HPI Eyes: Unremarkable ENT: Unremarkable Respiratory: Shortness of Breath, As per HPI Cardiovascular: Unremarkable Gastrointestinal: Unremarkable Genitourinary: Unremarkable Musculoskeletal: Unremarkable Integumentary: Unremarkable Neurological: Unremarkable Lymphatics: Unremarkable <Tan Little - Last Filed: 10/02/19 11:21> Physical Examination - Vital Signs Temperature: 97.7 F Blood Pressure: 126/78 Pulse: 78 Respirations: 23 Pulse Ox (%): 99 - Physical Exam General: Alert, In no apparent distress, Oriented x3 HEENT: Atraumatic, Normocephalic, PERRLA Neck: Supple, No Thyromegaly, Other (Trachea midline) Respiratory: Clear to auscultation bilaterally, Diminished Cardiovascular: Normal pulses, Regular rate/rhythm, Normal S1 S2 Capillary refill: <2 Seconds Gastrointestinal: Normal bowel sounds, Soft and benign, Non-distended Musculoskeletal: No clubbing, No swelling, No contractures, No erythema Integumentary: No breakdown, No significant lesion, No tenderness/swelling Neurological: Normal gait, Normal speech, Normal strength at 5/5 x4 extr, Normal tone - Studies Medications List Reviewed: Yes <Tan Little - Last Filed: 10/02/19 11:21> Assessment And Plan - Plan Assessment Acute respiratory failure with hypoxia secondary to bilateral COVID pneumonia: Hypertension: Obesity: Plan Acute respiratory failure with hypoxia secondary to bilateral COVID pneumonia: Patient requires CPAP/BiPAP at night. Patient states he has a CPAP unit at home but patient states it does not function well. He will eventually require a sleep study to qualify for a new CPAP BiPAP. Currently on high-flow at 40% on 20 L down from 90% 2 days ago. Continues slowly improving. States he feels better and is more able to sit in the chair without feeling short of breath. Will continue to try to wean patient off high-flow and down to nasal cannula. Pulmonology following. Continue with pulmonology recommendations. Discontinued methylprednisone at 80 mg q.12 hr p.o. Patient was switched to oral prednisone at 20 mg b.i.d. Will continue with full anticoagulation with Eliquis. Continue to trend CRP. CRP trending down. CRP level today of less than 2.9 x2. Anticipate clinical improvement next 48 hr to 72 hr. Patient will likely require home oxygen at discharge. Tolerating p.o. diet. Patient cannot be discharged until weaned off of O2 support down to 4 L nasal cannula. Hypertension: Stable. Home medications have been continued. Obesity: Counseled on lifestyle changes. Discharge Plan: Home Plan to discharge in: 72 Hours - Code Status/Comfort Care Code Status Assessed: Yes Physician Review Additional Text: Patient was seen and examined and findings were discussed Agree with the assessment and plan as documented by the MELANIE Time Spent Managing PTS Care (In Minutes): 45 <Tan Little - Last Filed: 10/02/19 11:21> - Plan Case discussed in detail with physician assigned. Agree with plan of care. Continue monitor closely. Anticipate discharge in the next 48 hr. <Sharad Motta - Last Filed: 10/02/19 17:26>
[2019-10-02] MEDS: GUAIFENESIN/CODEINE 5ML UCUP PO PRN (20:29)
[2019-10-02] MEDS: ATORVASTATIN 40 MG TAB PO SCH (20:29)
[2019-10-02] MEDS: MELATONIN 3 MG TABLET PO SCH (20:30)
[2019-10-03] MEDS: METOPROLOL TAR 50 MG TAB PO SCH ×2 (05:52→16:54)
[2019-10-03 05:54] LABS: Absolute Lymphocytes (CBC) 0.9 K/uL (0.7-4.9); Basophils % 0.4 % (0-1.3); Hematocrit 41.3 % (39.6-49.0); Lymphocytes % 10.8 % (15.3-44.8); MPV 9.3 fL (7.6-11.3)
[2019-10-03 06:01] LABS: BUN Blood Urea Nitrogen 25 mg/dL (7-18); Bicarbonate 28 mmol/L (21-32); Glucose Level 218 mg/dL (74-106); Sodium Level 137 mmol/L (136-145)
[2019-10-03 06:07] LABS: Potassium 5.3 mmol/L (3.5-5.1)
[2019-10-03 06:08] LABS: Magnesium 2.6 mg/dL (1.8-2.4)
[2019-10-03 08:26] LABS: Blood Morphology Comment NOT SEEN (NOT SEEN); Platelet Estimate ADEQ; Urine White Blood Cell Casts OK
[2019-10-03] MEDS: VITAMIN D 1000 UNIT TAB PO SCH (09:00)
[2019-10-03] MEDS: ZINC SULFATE 220 MG CAP PO SCH (09:18)
[2019-10-03] MEDS: AMLODIPINE 10 MG TAB PO SCH (09:18)
[2019-10-03] MEDS: FOLIC ACID 1 MG TABLET PO SCH (09:18)
[2019-10-03] MEDS: APIXABAN 5 MG TABLET PO SCH ×2 (09:18→20:29)
[2019-10-03] MEDS: predniSONE 20 MG TAB PO SCH ×2 (09:19→20:28)
[2019-10-03] MEDS: FUROSEMIDE 20 MG TABLET PO SCH (09:19)
[2019-10-03] MEDS: INSULIN GLARGINE 100 UNITS/ML SQ SCH ×2 (09:19→20:29)
[2019-10-03] MEDS: THIAMINE HCL 100 MG TABLET PO SCH (09:19)
[2019-10-03] MEDS: INSULIN -REGULAR HUMAN 50 UNIT/0.5 ML ML SQ SCH ×4 (09:20→20:29)
--- NOTE | 2019-10-03 09:34 | P.PN ---
Subjective Date of Service: 10/03/19 Primary Care Provider: Ramírez Chief Complaint: Respiratory failure from jones virus No change feeling better continue weaning down to nasal cannula oxygen possible discharge patient has a CPAP at home Physical Examination - Vital Signs Temperature: 97.9 F Blood Pressure: 139/78 Pulse: 58 Respirations: 28 Pulse Ox (%): 94 - Physical Exam General: Alert, Cooperative - Studies Medications List Reviewed: Yes Assessment & Plan - Problems (Diagnosis) (1) Coronavirus infection Current Visit: Yes Status: Acute Plan: Respiratory failure from jones virus he has improved CRP level is less than 10 medications reviewed continue with prednisone plan to wean him down to 4 L of nasal cannula oxygen
--- NOTE | 2019-10-03 11:03 | P.PN ---
Subjective Date of Service: 10/03/19 Primary Care Provider: Ramírez Chief Complaint: Respiratory failure from jones virus Subjective: Improving, Doing well (Pleasant and cooperative) Still requiring CPAP BiPAP at night. Slowly weaning down on high-flow. Currently on 40% down from 55% yesterday. Review of Systems General: As per HPI Eyes: Unremarkable ENT: Unremarkable Respiratory: Shortness of Breath, SOB with Excertion Cardiovascular: Unremarkable Gastrointestinal: Unremarkable Genitourinary: Unremarkable Musculoskeletal: Unremarkable Integumentary: Unremarkable Neurological: Unremarkable Lymphatics: Unremarkable Physical Examination - Vital Signs Temperature: 97.9 F Blood Pressure: 139/78 Pulse: 58 Respirations: 28 Pulse Ox (%): 94 - Physical Exam General: Alert, In no apparent distress, Oriented x3 HEENT: Atraumatic, Normocephalic, PERRLA, Mucous membr. moist/pink Neck: Supple, No Thyromegaly Respiratory: Clear to auscultation bilaterally, Diminished Cardiovascular: Normal pulses, Normal S1 S2 Capillary refill: <2 Seconds Gastrointestinal: Normal bowel sounds, Soft and benign, Non-distended, Other (Tolerating p.o. diet) Musculoskeletal: No swelling, No contractures, No erythema, No tenderness Integumentary: No significant lesion, No tenderness/swelling, No erythema Neurological: Normal speech, Normal strength at 5/5 x4 extr, Normal tone - Studies Medications List Reviewed: Yes Assessment And Plan - Plan Assessment Acute respiratory failure with hypoxia secondary to bilateral COVID pneumonia: Hypertension: Obesity: Plan Acute respiratory failure with hypoxia secondary to bilateral COVID pneumonia: Patient requires CPAP/BiPAP at night. Patient states he has a CPAP unit at home but patient states it does not function well. He will eventually require a sleep study to qualify for a new CPAP BiPAP. Patient was weaned from high-flow at 40% on 20 L and is currently on oxygen at 5 L nasal cannula. Continues slowly improving. States he feels better and is more able to sit in the chair without feeling short of breath. Will continue to try to wean patient down from 5l NC. Pulmonology following. Continue with pulmonology recommendations. Continue oral prednisone at 20 mg b.i.d. Will continue with full anticoagulation with Eliquis. Continue to trend CRP. CRP trending down. Anticipate clinical improvement next 48 hr to 72 hr. Patient will likely require home oxygen at discharge. Patient has oxygen tank delivered to room. Patient requires concentrator delivered to home. This may not happen until tomorrow. Tolerating p.o. diet. Patient cannot be discharged until weaned off of O2 support down to 4 L nasal cannula. Hypertension: Stable. Home medications have been continued. Obesity: Counseled on lifestyle changes. Discharge Plan: Home Plan to discharge in: 48 Hours - Code Status/Comfort Care Code Status Assessed: Yes Physician Review Additional Text: Patient was seen and examined and findings were discussed Agree with the assessment and plan as documented by the MELANIE Time Spent Managing PTS Care (In Minutes): 45
[2019-10-03] MEDS: MELATONIN 3 MG TABLET PO SCH (20:28)
[2019-10-03] MEDS: ATORVASTATIN 40 MG TAB PO SCH (20:28)
[2019-10-03] MEDS: GUAIFENESIN/CODEINE 5ML UCUP PO PRN (20:30)
[2019-10-04 04:45] LABS: Absolute Lymphocytes (CBC) 0.9 K/uL (0.7-4.9); Basophils % 0.5 % (0-1.3); Hematocrit 39.7 % (39.6-49.0); MPV 9.1 fL (7.6-11.3); RBC Red Blood Cell Count 5.17 M/uL (4.33-5.43)
[2019-10-04 05:17] LABS: BUN Blood Urea Nitrogen 21 mg/dL (7-18); Bicarbonate 29 mmol/L (21-32); Glucose Level 297 mg/dL (74-106); Magnesium 2.2 mg/dL (1.8-2.4); Potassium 4.9 mmol/L (3.5-5.1); Sodium Level 135 mmol/L (136-145)
[2019-10-04] MEDS: METOPROLOL TAR 50 MG TAB PO SCH ×2 (06:00→17:36)
[2019-10-04] MEDS: THIAMINE HCL 100 MG TABLET PO SCH (08:21)
[2019-10-04] MEDS: ZINC SULFATE 220 MG CAP PO SCH (08:21)
[2019-10-04] MEDS: predniSONE 20 MG TAB PO SCH ×2 (08:21→20:17)
[2019-10-04] MEDS: AMLODIPINE 10 MG TAB PO SCH (08:21)
[2019-10-04] MEDS: INSULIN -REGULAR HUMAN 50 UNIT/0.5 ML ML SQ SCH ×4 (08:22→20:19)
[2019-10-04] MEDS: FUROSEMIDE 20 MG TABLET PO SCH (08:22)
[2019-10-04] MEDS: FOLIC ACID 1 MG TABLET PO SCH (08:22)
[2019-10-04] MEDS: APIXABAN 5 MG TABLET PO SCH ×2 (08:22→20:17)
[2019-10-04] MEDS: INSULIN GLARGINE 100 UNITS/ML SQ SCH ×2 (08:23→20:18)
--- NOTE | 2019-10-04 08:48 | P.PN ---
Subjective Date of Service: 10/04/19 Primary Care Provider: Ramírez Chief Complaint: Respiratory failure from jones virus Patient is improving is still on BiPAP and higher concentrations of oxygen no the chain Review of Systems General: Weakness Respiratory: Shortness of Breath Physical Examination - Vital Signs Temperature: 97.6 F Blood Pressure: 138/85 Pulse: 58 Respirations: 28 Pulse Ox (%): 91 - Studies Medications List Reviewed: Yes Assessment & Plan - Problems (Diagnosis) (1) Coronavirus infection Current Visit: Yes Status: Acute Plan: Patient is improving once we can titrate O2 down to 4 L with a sat 90 or above and be discharged home on prednisone white count normal CRP level less than 10
[2019-10-04] MEDS: VITAMIN D 1000 UNIT TAB PO SCH (09:41)
--- NOTE | 2019-10-04 13:13 | P.DS ---
Admission Date: 09/25/19 Discharge Date: 10/05/19 Primary Care Provider: Ramírez Disposition: DC HOME/HOME HEALTH CARE Discharge Condition: GOOD Reason for Admission: Respiratory failure from jones virus Hospital Course: Patient is a 59-year-old male with morbid obesity, obstructive sleep apnea who was admitted to the hospital with acute hypoxemic respiratory failure secondary to call the 19 viral pneumonia. Patient was placed in the ICU. He eventually improved with systemic cortical steroids, short time anti coagulation current supportive care. Pulmonary was consulted. Patient was s atting 93% Vital Signs/Physical Exam: Temp Pulse Resp BP Pulse Ox 97.6 F 83 22 H 147/80 H 91 10/04/19 08:48 10/04/19 11:00 10/04/19 11:00 10/04/19 11:00 10/04/19 11:00 Laboratory Data at Discharge: WBC 7.9 K/uL (4.3-10.9) 10/04/19 03:47 Hgb 12.8 g/dL (13.6-17.9) L 10/04/19 03:47 Hct 39.7 % (39.6-49.0) 10/04/19 03:47 Plt Count 294 K/uL (152-406) 10/04/19 03:47 Sodium 135 mmol/L (136-145) L 10/04/19 03:47 Potassium 4.9 mmol/L (3.5-5.1) 10/04/19 03:47 BUN 21 mg/dL (7-18) H 10/04/19 03:47 Creatinine 0.87 mg/dL (0.55-1.3) 10/04/19 03:47 Glucose 297 mg/dL (74-106) H 10/04/19 03:47 Magnesium 2.2 mg/dL (1.8-2.4) 10/04/19 03:47 Total Bilirubin 0.7 mg/dL (0.2-1.0) 09/25/19 08:20 AST 80 U/L (15-37) H 09/25/19 08:20 ALT 58 U/L (12-78) 09/25/19 08:20 Alkaline Phosphatase 62 U/L (45-117) 09/25/19 08:20 Home Medications: ALPRAZolam [Xanax*] 1 mg PO BIDP PRN 09/25/19 Amlodipine [Norvasc*] 10 mg PO DAILY 09/25/19 Bupropion *Xl* [Wellbutrin XL*] 300 mg PO DAILY 09/25/19 Hydrocodone/Acetaminophen [Hydrocodone-Acetamin 10-325 mg] 1 tab PO QID 09/25/19 Metoprolol Tartrate [Lopressor] 100 mg PO BID 09/25/19 Apixaban [Eliquis] 5 mg PO BID 14 Days #28 tablet 10/05/19 Atorvastatin Calcium [Lipitor] 40 mg PO BEDTIME #30 tab 10/05/19 Cholecalciferol (Vitamin D3) [Vitamin D 1000 Iu Tab*] 2,000 unit PO DAILY tab 10/05/19 Furosemide [Lasix*] 20 mg PO DAILY #30 tab 10/05/19 Insulin Glargine Human [Lantus*] 18 units SQ BID #20 ml 10/05/19 Thiamine HCl [Vitamin B-1*] 200 mg PO DAILY #14 tablet 10/05/19 Zinc Sulfate [Zinc Sulfate*] 220 mg PO DAILY #28 cap 10/05/19 predniSONE [Prednisone*] 20 mg PO BID #14 tab 10/05/19 New Medications: Apixaban [Eliquis] 5 mg PO BID 14 Days #28 tablet Insulin Glargine Human [Lantus*] 18 units SQ BID #20 ml Furosemide [Lasix*] 20 mg PO DAILY #30 tab Atorvastatin Calcium [Lipitor] 40 mg PO BEDTIME #30 tab predniSONE [Prednisone*] 20 mg PO BID #14 tab Thiamine HCl [Vitamin B-1*] 200 mg PO DAILY #14 tablet Zinc Sulfate [Zinc Sulfate*] 220 mg PO DAILY #28 cap
--- NOTE | 2019-10-04 13:21 | P.PN ---
Subjective Date of Service: 10/04/19 Primary Care Provider: Darrell Chief Complaint: Respiratory failure from jones virus Subjective: Improving (Patient appears well visibly. He is not in respiratory distress. However, he still requiring higher amount of oxygen, currently on 4 L of oxygen via nasal cannula. His oxygen saturation is ranging between high 80s and low 90s. He will stay 1 more day to optimize his respiratory status.) Physical Examination - Vital Signs Temperature: 97.6 F Blood Pressure: 147/80 Pulse: 83 Respirations: 22 Pulse Ox (%): 91 - Physical Exam General: In no apparent distress, Cooperative, Obese HEENT: Atraumatic, Normocephalic, EOMI Neck: Supple Respiratory: Other (Nonlabored breathing. No crackles or wheezing heard. Good air entry.) Cardiovascular: No edema, Normal pulses, Regular rate/rhythm, Normal S1 S2 Gastrointestinal: Normal bowel sounds, Soft and benign, Non-distended Musculoskeletal: No clubbing, No swelling, No contractures, No erythema, No tenderness, No warmth Neurological: Normal speech, Normal tone, Sensation intact, Normal affect - Studies Medications List Reviewed: Yes Assessment & Plan - Problems (Diagnosis) (1) Acute hypoxemic respiratory failure due to COVID-19 Current Visit: Yes Status: Acute (2) Viral pneumonia Current Visit: Yes Status: Acute (3) Morbid obesity Current Visit: Yes Status: Acute (4) Morbid obesity with BMI of 50.0-59.9, adult Current Visit: Yes Status: Acute (5) NINO (obstructive sleep apnea) Current Visit: Yes Status: Acute (6) Hypertension Current Visit: Yes Status: Acute Physician Review Additional Text: Assessment Patient is a 59-year-old male with morbid obesity, obstructive sleep apnea who was admitted to the hospital with acute hypoxemic respiratory failure secondary to call the 19 viral pneumonia. He is currently in the ICU. He eventually improved with systemic cortical steroids, short time anti coagulation current supportive care. Pulmonary was consulted. He continues to require > 4 L of O2 via NC, although his clinical status has greatly improved 1. Acute hypoxemic respiratory failure due to COVID 19 viral pneumonia 2. NINO 3. Morbid obesity 4. HTN 5. Uncontrolled type 2 diabetes mellitus PLAN Continue prednisone, Lasix, vitamin B1 and see, and zinc Wean down oxygen as tolerated Discharge home once patient's is on 3 L or less of oxygen via nasal cannula Concentrator delivered at home. Patient okay to discharge once medically stable He will need to follow up with Pulmonary arrange for outpatient CPAP for obstructive sleep apnea Continue blood pressure control with Norvasc and metoprolol Checking hemoglobin A1c today Modify insulin regimen to 18 units Lantus b.i.d. along with insulin sliding scale
[2019-10-04] MEDS ORDERED: NPH (HUMAN) 100 UNITS/ML INSULIN SQ ONE (13:45)
[2019-10-04] MEDS: ATORVASTATIN 40 MG TAB PO SCH (20:17)
[2019-10-04] MEDS: MELATONIN 3 MG TABLET PO SCH (20:17)
[2019-10-04] MEDS: GUAIFENESIN/CODEINE 5ML UCUP PO PRN (21:35)
[2019-10-05 04:30] VITALS: TEMP 96.9
[2019-10-05 05:01] VITALS: O2SAT 91
[2019-10-05] MEDS: METOPROLOL TAR 50 MG TAB PO SCH (06:00)
[2019-10-05] MEDS: AMLODIPINE 10 MG TAB PO SCH (08:08)
[2019-10-05] MEDS: FUROSEMIDE 20 MG TABLET PO SCH (08:08)
[2019-10-05] MEDS: APIXABAN 5 MG TABLET PO SCH (08:08)
[2019-10-05] MEDS: FOLIC ACID 1 MG TABLET PO SCH (08:08)
[2019-10-05] MEDS: ZINC SULFATE 220 MG CAP PO SCH (08:08)
[2019-10-05] MEDS: THIAMINE HCL 100 MG TABLET PO SCH (08:08)
[2019-10-05] MEDS: INSULIN -REGULAR HUMAN 50 UNIT/0.5 ML ML SQ SCH ×2 (08:09→11:32)
[2019-10-05] MEDS: INSULIN GLARGINE 100 UNITS/ML SQ SCH (08:09)
[2019-10-05] MEDS: predniSONE 20 MG TAB PO SCH (08:09)
[2019-10-05] MEDS: VITAMIN D 1000 UNIT TAB PO SCH (08:09)
[2019-10-05 09:59] VITALS: BP 119/67
--- NOTE | 2019-10-05 11:16 | P.PN ---
Subjective Date of Service: 10/05/19 Primary Care Provider: Ramírez Chief Complaint: Respiratory failure from jones virus Patient is doing much better feeling better oxygen setup Physical Examination - Vital Signs Temperature: 96.9 F Blood Pressure: 119/67 Pulse: 59 Respirations: 23 Pulse Ox (%): 87 - Studies Medications List Reviewed: Yes Assessment & Plan - Problems (Diagnosis) (1) Coronavirus infection Current Visit: Yes Status: Acute Plan: Doing better plan to discharge on 4 L of nasal cannula oxygen telephone visit with me in 2 weeks discharge medications reviewed
== END 2019-10-05 12:40 | disposition home or self-care (01) | DRG 177 ==
LOC: ER 07:57 → ERHOLD 09:59 → 4TH 11:35 → 3RD-ICU 10-01 06:05
PROVIDERS: ADMIT Family Medicine; ATTEND Internal Medicine
PROC: 8E0ZXY6 Isolation (ICD-10-PCS; principal; 2019-09-25)
DX: U07.1 COVID-19 (principal); J12.89 Other viral pneumonia; J96.01 Acute respiratory failure with hypoxia; Z68.43 Body mass index [BMI] 50.0-59.9, adult; E66.01 Morbid (severe) obesity due to excess calories; I10 Essential (primary) hypertension; G47.33 Obstructive sleep apnea (adult) (pediatric); F17.200 Nicotine dependence, unspecified, uncomplicated; Z79.899 Other long term (current) drug therapy; Z79.891 Long term (current) use of opiate analgesic
CPT/HCPCS: 36415; 71045; 80048; 80076; 82805; 82947; 83036; 83605; 83735; 83880; 84132; 84145; 84484; 85025; 85379; 86140; 87040; 87205; 93005; 94640; 94660; 94760; 96365; 96372; 96375; 99285; J0456; J0696; J1100; J1650; J1815; J1940; J2920; J2930; J3370; J3411; J7040; J7050; J7512

== ENCOUNTER 2019-10-18 11:27 | Observation (INO) | payer BC, OTHER ==
--- OUTSIDE RECORDS SUMMARY | 2019-10-18 11:31 | XMS REPORT | Continuity of Care Document ---
:1960 Author Organization [facility] t Address [address] [place] [address] Dr. Ortiz [address] [place] [address] Care Team Providers Name Role Phone Unavailable Unavailable Unavailable Problems This patient has no known problems. Allergies, Adverse Reactions, Alerts This patient has no known allergies or adverse reactions. Medications This patient has no known medications. Procedures This patient has no known procedures. Results This patient has no known results.
--- NOTE | 2019-10-18 14:17 | RAD REPORT ---
EXAM DESCRIPTION: CT - Chest For Pe Angio - 10/18/2019 2:11 pm CLINICAL HISTORY: Chest pain. DYSPNEA COMPARISON: Chest Single View dated 09/29/2019 TECHNIQUE: CT angiogram of the pulmonary arteries was performed with MIP. All CT scans are performed using dose optimization technique as appropriate and may include automated exposure control or mA/KV adjustment according to patient size. FINDINGS: No evidence of pulmonary thromboembolism. No acute aortic finding demonstrated. Extensive bilateral pulmonary opacities are present most compatible with bilateral moderately severe interstitial pneumonia. No significant pericardial or pleural fluid. No concerning bony finding. IMPRESSION: No evidence of pulmonary thromboembolism. Extensive bilateral interstitial pneumonia.
[2019-10-18 14:19] LABS: Absolute Lymphocytes (CBC) 1.3 K/uL (0.7-4.9); Basophils % 0.9 % (0-1.3); Hematocrit 42.6 % (39.6-49.0); Lymphocytes % 25.5 % (15.3-44.8); MPV 8.7 fL (7.6-11.3); RBC Red Blood Cell Count 5.48 M/uL (4.33-5.43)
[2019-10-18 14:34] LABS: ALT/SGPT 34 U/L (12-78); AST/SGOT 21 U/L (15-37); Albumin 2.8 g/dL (3.4-5.0); Alkaline Phosphatase 71 U/L (45-117); BUN Blood Urea Nitrogen 6 mg/dL (7-18); Bicarbonate 29 mmol/L (21-32); Bilirubin Direct 0.2 mg/dL (0-0.2); Bilirubin Total 0.6 mg/dL (0.2-1.0); Glucose Level 122 mg/dL (74-106); Magnesium 1.9 mg/dL (1.8-2.4); NT PRO-BNP 244 pg/mL (<125); Potassium 4.1 mmol/L (3.5-5.1); Protein, Total 7.4 g/dL (6.4-8.2); Sodium Level 142 mmol/L (136-145); Troponin (Emerg Dept Use Only) < 0.02 ng/mL (0.0-0.045)
--- NOTE | 2019-10-18 14:54 | RAD REPORT ---
EXAM DESCRIPTION: RAD - Chest Pa And Lat (2 Views) - 10/18/2019 2:49 pm CLINICAL HISTORY: SOB Chest pain. COMPARISON: Chest Single View dated 09/29/2019; Chest Single View dated 09/25/2019; Chest Single View dated 09/22/2019; Chest Pa And Lat (2 Views) dated 10/07/2016 FINDINGS: Extensive bilateral pulmonary opacities are present, significantly worse than on the vincent rative study, compatible with bilateral pneumonia. The heart is upper limit normal in size. No displa james fractures.
[2019-10-18] MEDS ORDERED: MEPERIDINE HCL 50 MG/ML ONE (15:19)
[2019-10-18] MEDS ORDERED: Levofloxacin 750mg IV 750 MG/150 ML BAG IV ONE (15:38)
--- NOTE | 2019-10-18 15:45 | EDPHYS ---
Physician Documentation [facility] Name: Juan Gloria Age: 59 yrs Sex: Male : 1960 Arrival Date: 10/18/2019 Time: 11:29 Bed 28 Private MD: Juan Ramírez E ED Physician Stef Almanzar HPI: 10/17 15:15 This 59 yrs old Black Male presents to ER via Wheelchair with complaints of Cough, rn Breathing Difficulty, Back Pain. 15:15 The patient or guardian reports cough, difficulty breathing. Onset: The rn symptoms/episode began/occurred 2 day(s) ago. Severity of symptoms: At their worst the symptoms were moderate, in the emergency department the symptoms are unchanged. 15:40 Modifying factors: The symptoms are alleviated by nothing, the symptoms are aggravated rn by exertion. Associated signs and symptoms: Pertinent positives: chest pain, cough, this patient has no pertinent positive symptoms Pertinent negatives: fever, sore throat. The patient has experienced a previous episode. Reports recently admitted and discharged for COVID pneumonia, sent home on oxygen, felt better, now for 2 days, increased sob and dyspnea on exertion.. Historical: - Allergies: 11:58 No Known Allergies; ca1 - PMHx: 11:58 Hypertension; ca1 - PSHx: 11:58 back surgery; Knee surgery; ca1 - Immunization history:: Adult Immunizations up to date. - Social history:: Smoking status: Patient denies any tobacco usage or history of. - Family history:: not pertinent. - Hospitalizations: : The patient was recently seen at [facility]. ROS: 15:40 Constitutional: Negative for fever, chills, and weight loss, Eyes: Negative for injury, rn pain, redness, and discharge, Neck: Negative for injury, pain, and swelling, Cardiovascular: Negative for chest pain, palpitations, and edema, Respiratory: + cough and sob Abdomen/GI: Negative for abdominal pain, nausea, vomiting, diarrhea, and constipation, MS/Extremity: Negative for injury and deformity, Skin: Negative for injury, rash, and discoloration, Neuro: Negative for headache, weakness, numbness, tingling, and seizure. Exam: 15:40 Constitutional: Overweight male, + mild tachypnea Head/Face: Normocephalic, rn atraumatic. ENT: no stridor Cardiovascular: Regular rate and rhythm. No pulse deficits. Respiratory: + tachypnea, diminished at bases Abdomen/GI: soft, non-tender MS/ Extremity: Pulses equal, no cyanosis. Neurovascular intact. Full, normal range of motion. Equal circumference. Neuro: Awake and alert, GCS 15 Vital Signs: 11:53 BP 149 / 87; Pulse 102; Resp 20 S; Temp 98.9(O); Pulse Ox 95% on R/A; Weight 154.22 kg ca1 (R); Height 5 ft. 9 in. (175.26 cm) (R); 14:39 BP 127 / 76; Pulse 91; Resp 22; Pulse Ox 90% on R/A; bp 15:41 BP 119 / 101; Pulse 76; Resp 30; Pulse Ox 92% on 3 lpm NC; bp 17:50 BP 148 / 96; Pulse 85; Resp 23; Temp 98.9; Pulse Ox 95% on 3 lpm NC; bp 11:53 Body Mass Index 50.21 (154.22 kg, 175.26 cm) ca1 MDM: 13:36 Patient medically screened. rn 15:40 Differential Diagnosis: Bronchitis Viral Syndrome Pneumonia. Data reviewed: vital rn signs, nurses notes, lab test result(s), radiologic studies, CT scan, and as a result, I will admit patient. Counseling: I had a detailed discussion with the patient and/or guardian regarding: the historical points, exam findings, and any diagnostic results supporting the discharge/admit diagnosis, lab results, radiology results, the need for further work-up and treatment in the hospital. Response to treatment: There is no appreciated change of the patient's symptoms at this time, and as a result, I will admit patient. Admission orders: after a detailed discussion of the patient's condition and case, the admit orders are written by me. ED course: Pt admitted to Dr. Motta for worsening bilateral pneumonia and oxygen requirement.. 10/17 13:41 Order name: Blood Culture Adult (2) rn 10/17 13:41 Order name: BMP; Complete Time: 15:00 rn 10/17 13:41 Order name: CBC with Diff; Complete Time: 15:00 rn 10/17 13:41 Order name: D-Dimer; Complete Time: 15:00 rn 10/17 13:41 Order name: Hepatic Function; Complete Time: 15:00 rn 10/17 13:41 Order name: Magnesium; Complete Time: 15:00 rn 10/17 13:31 Order name: XRAY Chest Pa And Lat (2 Views); Complete Time: 15:00 bp 10/17 13:41 Order name: NT PRO-BNP; Complete Time: 15:00 rn 10/17 13:41 Order name: Troponin (emerg Dept Use Only); Complete Time: 15:00 rn 10/17 14:18 Order name: CREATININE WHOLE BLOOD; Complete Time: 15:00 EDMS 10/17 15:24 Order name: CRP rn 10/17 15:24 Order name: Ferritin rn 10/17 15:24 Order name: Procalcitonin rn 10/17 13:41 Order name: EKG; Complete Time: 13:42 rn 10/17 13:41 Order name: Cardiac monitoring; Complete Time: 13:49 rn 10/17 13:41 Order name: EKG - Nurse/Tech; Complete Time: 13:49 rn 10/17 13:41 Order name: IV Saline Lock; Complete Time: 14:07 rn 10/17 13:41 Order name: Labs collected and sent; Complete Time: 14:07 rn 10/17 13:41 Order name: O2 Per Protocol; Complete Time: 13:49 rn 10/17 13:41 Order name: O2 Sat Monitoring; Complete Time: 13:49 rn 10/17 13:42 Order name: CT Chest For PE Angio; Complete Time: 15:00 rn 10/17 16:17 Order name: Social Service Consult EDMS Administered Medications: 15:13 Drug: Demerol 25 mg Route: IVP; Site: left antecubital; bp 15:41 Follow up: Response: Pain is decreased bp 15:25 Drug: LevaQUIN 750 mg Volume: 150 ml; Route: IVPB; Infused Over: 90 mins; Site: left bp antecubital; 17:50 Follow up: IV Status: Completed infusion; IV Intake: 150ml bp 16:00 Drug: SOLU-Medrol 125 mg Route: IVP; Site: left antecubital; bp 17:50 Follow up: Response: No adverse reaction bp Disposition: 10/18/19 15:45 Hospitalization ordered by Sharad Motta for Inpatient Admission. Preliminary diagnosis are Pneumonia, unspecified organism, Dyspnea, unspecified. - Bed requested for Telemetry/MedSurg (Inpatient). - Status is Inpatient Admission. iw - Condition is Stable. - Problem is new. - Symptoms are unchanged. Signatures: Dispatcher [employer] EDDC Kika Hansen, RN CALI iw Stef Almanzar MD MD rn Peltier, Brian, RN RN Shalonda Fischer eb Ranjit, Mai, RN RN ca1 Corrections: (The following items were deleted from the chart) 14:48 13:42 Chest Single View+[email or web address].[email or web address] ordered. EDDC EDDC 15:41 15:40 Constitutional: Negative for fever, chills, and weight loss, Eyes: Negative for rn injury, pain, redness, and discharge, Neck: Negative for injury, pain, and swelling, Cardiovascular: Negative for chest pain, palpitations, and edema, Respiratory: + cough and sob Abdomen/GI: Negative for abdominal pain, nausea, vomiting, diarrhea, and constipation, MS/Extremity: Negative for injury and deformity, Skin: Negative for injury, rash, and discoloration, Neuro: Negative for headache, weakness, numbness, tingling, and seizure, rn 17:11 15:45 Hospitalization Ordered by Sharad Motta DO for Inpatient Admission. Preliminary eb diagnosis is Pneumonia, unspecified organism; Dyspnea, unspecified. Bed requested for Telemetry/MedSurg (Inpatient). Status is Inpatient Admission. Condition is Stable. Problem is new. Symptoms are unchanged. rn 18:01 17:11 10/18/2019 15:45 Hospitalization Ordered by Sharad Motta DO for Inpatient iw Admission. Preliminary diagnosis is Pneumonia, unspecified organism; Dyspnea, unspecified. Bed requested for Telemetry/MedSurg (Inpatient). Status is Inpatient Admission. Condition is Stable. Problem is new. Symptoms are unchanged. eb
--- NOTE | 2019-10-18 15:45 | ER ---
Nurse's Notes [facility] Name: Juan Gloria Age: 59 yrs Sex: Male : 1960 Arrival Date: 10/18/2019 Time: 11:29 Bed 28 Private MD: Juan Ramírez E Diagnosis: Pneumonia, unspecified organism;Dyspnea, unspecified Presentation: 10/17 11:53 Chief complaint: Patient states: Came here September 24. Had Covid Pneumonia and stayed in ca1 the hospital for 11 days. Sent home with O2 prn. Around , started having SOB at rest and more coughing. Reports low back pain, worse with coughing. Denies fever. Coronavirus screen: Client denies travel out of the [place] in the last 14 days. cough unrelated to allergies, shortness of breath, Client presents with at least one sign or symptom that may indicate coronavirus-19. Standard/surgical mask placed on the client. Provider contacted for isolation considerations. Client reports previous positive COVID test result. Date of collection: September 25, 2019. Ebola Screen: Patient negative for fever greater than or equal to 101.5 degrees Fahrenheit, and additional compatible Ebola Virus Disease symptoms Patient denies exposure to infectious person. Patient denies travel to an Ebola-affected area in the 21 days before illness onset. No symptoms or risks identified at this time. Initial Sepsis Screen: Does the patient meet any 2 criteria? No. Patient's initial sepsis screen is negative. Does the patient have a suspected source of infection? No. Patient's initial sepsis screen is negative. Risk Assessment: Do you want to hurt yourself or someone else? Patient reports no desire to harm self or others. Onset of symptoms was October 18, 2019. 11:53 Method Of Arrival: Wheelchair ca1 11:53 Acuity: MANDA 3 ca1 Triage Assessment: 11:58 General: Appears in no apparent distress. comfortable, Behavior is calm, cooperative, ca1 appropriate for age. Pain: Complains of pain in low back area. Respiratory: Reports shortness of breath at rest cough that is non-productive, Respiratory effort is even, unlabored, Respiratory pattern is regular, symmetrical, the patient has mild shortness of breath. 11:58 Respiratory: Onset: The symptoms/episode began/occurred yesterday. bp Historical: - Allergies: 11:58 No Known Allergies; ca1 - PMHx: 11:58 Hypertension; ca1 - PSHx: 11:58 back surgery; Knee surgery; ca1 - Immunization history:: Adult Immunizations up to date. - Social history:: Smoking status: Patient denies any tobacco usage or history of. - Family history:: not pertinent. - Hospitalizations: : The patient was recently seen at [facility]. Screenin:30 Abuse screen: Denies threats or abuse. Denies injuries from another. Nutritional bp screening: No deficits noted. Tuberculosis screening: No symptoms or risk factors identified. Fall Risk None identified. Assessment: 13:30 General: Appears distressed, uncomfortable, obese, Behavior is cooperative, appropriate bp for age, anxious. Pain: Denies pain. Neuro: Level of Consciousness is awake, alert, obeys commands, Oriented to person, place, time, situation, Appropriate for age. Cardiovascular: Rhythm is sinus tachycardia. Respiratory: Airway is patent Breath sounds with wheezes bilaterally. GI: No signs and/or symptoms were reported involving the gastrointestinal system. : No signs and/or symptoms were reported regarding the genitourinary system. EENT: No deficits noted. Derm: No deficits noted. Musculoskeletal: No deficits noted. 14:30 Reassessment: PT RETURNED FROM RADIOLOGY. ALL CURRENT ORDERS COMPLETED, RESULTS PENDING.bp 15:13 Reassessment: PT DESAT ON ROOM AIR AT REST. 3LNC PLACED. CT CHEST GROSSLY ABNORMAL, bp ADMIT PENDING. 17:48 Reassessment: ADMIT COMPLETE, BED ASSIGNED 430. Respiratory: Airway is patent bp Respiratory effort is labored, Respiratory pattern is tachypnea. Vital Signs: 11:53 BP 149 / 87; Pulse 102; Resp 20 S; Temp 98.9(O); Pulse Ox 95% on R/A; Weight 154.22 kg ca1 (R); Height 5 ft. 9 in. (175.26 cm) (R); 14:39 BP 127 / 76; Pulse 91; Resp 22; Pulse Ox 90% on R/A; bp 15:41 BP 119 / 101; Pulse 76; Resp 30; Pulse Ox 92% on 3 lpm NC; bp 17:50 BP 148 / 96; Pulse 85; Resp 23; Temp 98.9; Pulse Ox 95% on 3 lpm NC; bp 11:53 Body Mass Index 50.21 (154.22 kg, 175.26 cm) ca1 ED Course: 11:29 Patient arrived in ED. ag5 11:29 Juan Ramírez MD is Private Physician. ag5 11:57 Triage completed. ca1 13:30 Rico Cool, RN is Primary Nurse. bp 13:30 Patient has correct armband on for positive identification. Bed in low position. Call bp light in reach. Side rails up X2. 13:30 manager monitoring on. Pulse ox on. NIBP on. bp 13:30 Arm band placed on. bp 13:36 Stef Almanzar MD is Attending Physician. rn 13:54 EKG done, by fill technician. reviewed by Stef Almanzar MD. at1 14:00 Inserted saline lock: 22 gauge in left antecubital area, using aseptic technique. Blood bp collected. 14:13 CT Chest For PE Angio In Process Unspecified. EDMS 14:48 XRAY Chest Pa And Lat (2 Views) In Process Unspecified. EDMS 15:44 Sharad Motta DO is Hospitalizing Provider. rn 17:49 No provider procedures requiring assistance completed. Patient admitted, IV remains in bp place. Administered Medications: 15:13 Drug: Demerol 25 mg Route: IVP; Site: left antecubital; bp 15:41 Follow up: Response: Pain is decreased bp 15:25 Drug: LevaQUIN 750 mg Volume: 150 ml; Route: IVPB; Infused Over: 90 mins; Site: left bp antecubital; 17:50 Follow up: IV Status: Completed infusion; IV Intake: 150ml bp 16:00 Drug: SOLU-Medrol 125 mg Route: IVP; Site: left antecubital; bp 17:50 Follow up: Response: No adverse reaction bp Intake: 17:50 IV: 150ml; Total: 150ml. bp Outcome: 15:45 Decision to Hospitalize by Provider. rn 17:49 Admitted to Med/surg accompanied by tech, via wheelchair, room 430, with oxygen, with bp chart, Report called to CELIO LEIVA 17:49 Condition: stable 17:49 Instructed on the need for admit. 18:01 Patient left the ED. iw Signatures: Dispatcher [employer] EDMS Kika Hansen, RN Stef Gordon MD MD rn Gonzales, Amanda, inbound sales manager EKG Tat1 Rico Cool, RN RN bp Mai Church, RN RN ca1 Enmanuel, Elaina ag5
[2019-10-18] MEDS ORDERED: METHYLPREDNISOLONE 125 MG INJ ONE (16:12)
--- NOTE | 2019-10-18 16:15 | P.HP ---
Certification for Inpatient Patient admitted to: Observation With expected LOS: <2 Midnights Patient will require the following post-hospital care: Home Health Services Practitioner: I am a practitioner with admitting privileges, knowledge of patient current condition, hospital course, and medical plan of care. Services: Services provided to patient in accordance with Admission requirements found in Title 42 Section 412.3 of the Code of Federal Regulations Patient History Date of Service: 10/18/19 Primary Care Provider: Dr. Ramírez Reason for admission: Shortness of breath History of Present Illness: 59-year-old male presented to the emergency room with increasing shortness of breath and cough. Patient was recently hospitalized for COVID. Patient was sent home with oxygen, steroid treatment and medications. He was not able to follow up with pulmonology or his PCP. He reports a running out of prednisone. Since that time over the past several days he has been having increasing shortness of breath and cough. The cough is worse at night. He denies any fever, chills, chest pain. He has chronic back pain. He came to the ER for further evaluation. Patient in the ER requiring oxygen per nasal cannula. CT chest showed no pulmonary embolism but extensive bilateral pneumonia noted. On lab white count within normal range. Hemoglobin 13.5. Sodium 142, potassium 4.1. Glucose 122. CRP and pro calcitonin pending. D-dimer 542. Patient given IV Solu-Medrol in the emergency room. Patient admitted for further evaluation and observation. When I saw the patient ER, patient appeared comfortable on oxygen. Allergies No Known Allergies Allergy (Unverified 08/29/16 13:00) Home medications list reviewed: Yes Home Medications: ALPRAZolam [Xanax*] 1 mg PO BIDP PRN 09/25/19 Amlodipine [Norvasc*] 10 mg PO DAILY 09/25/19 Bupropion *Xl* [Wellbutrin XL*] 300 mg PO DAILY 09/25/19 Hydrocodone/Acetaminophen [Hydrocodone-Acetamin 10-325 mg] 1 tab PO QID 09/25/19 Metoprolol Tartrate [Lopressor] 100 mg PO BID 09/25/19 Apixaban [Eliquis] 5 mg PO BID 14 Days #28 tablet 10/05/19 Atorvastatin Calcium [Lipitor] 40 mg PO BEDTIME #30 tab 10/05/19 Cholecalciferol (Vitamin D3) [Vitamin D 1000 Iu Tab*] 2,000 unit PO DAILY tab 10/05/19 Furosemide [Lasix*] 20 mg PO DAILY #30 tab 10/05/19 Insulin Glargine Human [Lantus*] 18 units SQ BID #20 ml 10/05/19 Thiamine HCl [Vitamin B-1*] 200 mg PO DAILY #14 tablet 10/05/19 Zinc Sulfate [Zinc Sulfate*] 220 mg PO DAILY #28 cap 10/05/19 predniSONE [Prednisone*] 20 mg PO BID #14 tab 10/05/19 - Past Medical/Surgical History Diabetic: No -: Hypertension -: Obstructive sleep apnea -: Morbid obesity -: Knee surgery -: Back surgery -: Ankle surgery Psychosocial/ Personal History: Patient lives at home with his . - Family History Father -: Kidney disease Mother -: Cancer - Social History Smoking Status: Never smoker Alcohol use: Yes CD- Drugs: No Caffeine use: Yes Place of Residence: Home Review of Systems General: As per HPI Eyes: Unremarkable Respiratory: Cough, Shortness of Breath, As per HPI Cardiovascular: Unremarkable Gastrointestinal: Unremarkable Genitourinary: Unremarkable Musculoskeletal: Back Pain, As per HPI Integumentary: Unremarkable Neurological: Unremarkable Lymphatics: Unremarkable Physical Examination - Physical Exam General: Alert, In no apparent distress, Oriented x3, Cooperative HEENT: Atraumatic Neck: Supple Respiratory: Clear to auscultation bilaterally, Normal air movement, Other (Patient on oxygen. Requiring 3-4 L per) Cardiovascular: Normal pulses, Regular rate/rhythm Gastrointestinal: Normal bowel sounds, Soft and benign, Non-distended Neurological: Normal speech, Normal strength at 5/5 x4 extr, Normal tone, Normal affect - Studies Laboratory Data (last 24 hrs) 10/18/19 14:00: WBC 5.2, Hgb 13.5 L, Hct 42.6, Plt Count 132 L 10/18/19 14:00: Sodium 142, Potassium 4.1, BUN 6 L, Creatinine 0.91, Glucose 122 H, Magnesium 1.9, Total Bilirubin 0.6, AST 21, ALT 34, Alkaline Phosphatase 71 Assessment and Plan - Plan Impression: Dyspnea, cough secondary to persistent bilateral COVID 19 pneumonia with hypoxia Hypertension Obstructive sleep apnea Chronic back pain Plan: Dyspnea, cough secondary to persistent bilateral COVID 19 pneumonia with hypoxia: Patient will be admitted for observation. Will start IV Solu-Medrol. Will continue with IV Solu-Medrol. Patient given Levaquin in the emergency room. Doubt bacterial infection at this time. Blood cultures obtained. CTs shows no pulmonary embolism. Will start DVT prophylaxis. Will continue with vitamin supplementation. Maintain oxygen by 93%. Will consult respiratory to wean down oxygen. Will review and restart home medication. Anticipate improvement over the next 24 hr. Likely discharge tomorrow with home oxygen and oral steroids. Patient will need close follow up with pulmonology and PCP. Patient will need home health and physical therapy at discharge. Hypertension: Will provide medication. Obtain home medication. Obstructive sleep apnea: Needs sleep study as an outpatient. Needs follow up with Pulmonary Chronic back pain: Will provide medication. Patient would benefit with pain management referral as an outpatient. Discharge Plan: Home Plan to discharge in: 24 Hours - Advance Directives Does patient have a Living Will: No Does patient have a Durable POA for Healthcare: No - Code Status/Comfort Care Code Status Assessed: Yes (Patient is full code) Time Spent Managing Pts Care (In Minutes): 55
[2019-10-18 16:28] LABS: C-Reactive Protein 10.6 mg/L (<3.00); Ferritin 49.4 ng/mL (26-388)
[2019-10-18] MEDS ORDERED: HYDROCODONE/APAP 7.5/325 MG TAB PO PRN (18:07)
[2019-10-18] MEDS ORDERED: METHYLPREDNISOLONE 125 MG INJ IV SCH (18:07)
[2019-10-18] MEDS ORDERED: ACETAMINOPHEN 500 MG TAB PO PRN (18:07)
[2019-10-18] MEDS ORDERED: D50W 25 GM/50 ML SYRINGE/VIAL IV PRN (18:07)
[2019-10-18] MEDS ORDERED: ONDANSETRON 4 MG/2 ML VIAL IV PRN (18:07)
[2019-10-18] MEDS ORDERED: HYDRALAZINE HCL 20 MG/ML VIAL IV PRN (18:07)
[2019-10-18] MEDS: INSULIN -REGULAR HUMAN 50 UNIT/0.5 ML ML SQ SCH ×2 (18:07→20:45)
[2019-10-18] MEDS ORDERED: GLUCAGON 1 MG/VIAL IM PRN (18:07)
[2019-10-18 18:09] VITALS: BMI 49.4
[2019-10-18] MEDS: METOPROLOL TAR 50 MG TAB PO SCH (20:23)
[2019-10-18] MEDS: ENOXAPARIN 40 MG/0.4 ML SQ SCH (20:26)
[2019-10-18] MEDS ORDERED: HOME MED 1 EA UNK (Metoprolol Tartrate [Lopressor] 50 MG) PO SCH (21:00)
[2019-10-18] MEDS ORDERED: INSULIN GLARGINE 100 UNITS/ML SQ SCH (21:00)
[2019-10-18] MEDS ORDERED: ATORVASTATIN 40 MG TAB PO SCH (21:00)
[2019-10-18] MEDS ORDERED: BENZONATATE 100 MG CAP PO PRN (21:17)
[2019-10-18] MEDS: METHYLPREDNISOLONE 125 MG INJ IV SCH (23:05)
[2019-10-19] MEDS: METHYLPREDNISOLONE 125 MG INJ IV SCH ×2 (05:08→12:00)
[2019-10-19 07:37] VITALS: BP 148/58; TEMP 96.7
--- NOTE | 2019-10-19 07:42 | P.DS ---
Admission Date: 10/18/19 Discharge Date: 10/19/19 Primary Care Provider: Dr. Ramírez Disposition: DC HOME/HOME HEALTH CARE Discharge Condition: GOOD Reason for Admission: Shortness of breath Consultations: Pulmonary-Dr. Esqueda Procedures: CT Scan: FINDINGS: No evidence of pulmonary thromboembolism. No acute aortic finding demonstrated. Extensive bilateral pulmonary opacities are present most compatible with bilateral moderately severe interstitial pneumonia. No significant pericardial or pleural fluid. No concerning bony finding. IMPRESSION: No evidence of pulmonary thromboembolism. Extensive bilateral interstitial pneumonia. Medical Problem List: Dyspnea, cough secondary to persistent bilateral COVID 19 pneumonia with hypoxia Hypertension Obstructive sleep apnea Chronic back pain Anxiety Hyperlipidemia Morbid Obesity, BMI 49 Brief History of Present Illness: 59-year-old male presented to the emergency room with increasing shortness of breath and cough. Patient was recently hospitalized for COVID. Patient was sent home with oxygen, steroid treatment and medications. He was not able to follow up with pulmonology or his PCP. He reports a running out of prednisone. Since that time over the past several days he has been having increasing shortness of breath and cough. The cough is worse at night. He denies any fever, chills, chest pain. He has chronic back pain. He came to the ER for further evaluation. Patient in the ER requiring oxygen per nasal cannula. CT chest showed no pulmonary embolism but extensive bilateral pneumonia noted. On lab white count within normal range. Hemoglobin 13.5. Sodium 142, potassium 4.1. Glucose 122. CRP and pro calcitonin pending. D-dimer 542. Patient given IV Solu-Medrol in the emergency room. Patient admitted for further evaluation and observation. When I saw the patient ER, patient appeared comfortable on oxygen. Hospital Course: Patient presented with dyspnea, cough secondary to persistent bilateral COVID 19 pneumonia with hypoxia. Patient had been recently hospitalized and sent home with oxygen. He apparently ran out of prednisone and was not able follow up with Pulmonary for PCP. Patient was evaluated emergency room. CT shows bilateral pneumonia. No pulmonary embolism noted. The patient was admitted for observation. Patient responded well to IV steroids. At discharge she is without significant shortness of breath. Patient with mild cough. Patient will be discharged home. Patient will continue with prednisone 20 mg 1 pill twice daily for 5 days then 1 pill once daily for 5 days. Patient may also continue with supplementation including vitamin-C, thiamine, zinc and vitamin-D. Patient will continue with incentive spirometer. Patient encouraged to cough to help with his breathing exercises. Recommend no cough suppressants at this time. Patient will need a follow up closely with pulmonology within 1 week to follow up his care. Pulmonary to further adjust his steroid over time. Education on COVID19 will be provided. Patient will continue with home oxygen to maintain sats above 93%. Will try to arrange for home health at discharge. Patient with hypertension. This has remained stable. At discharge he will continue with his current medications Norvasc 10 mg daily and metoprolol 100 mg 1 pill twice daily. Will also recommend to continue aspirin 81 mg daily. Recommend to maintain blood pressure less 150/80. Further adjustment can be done by his PCP. Patient with diabetes mellitus type 2. Patient insulin dependent. At discharge he will continue with his current insulin regimen Lantus 18 units subcu twice daily. Recommend to maintain blood sugars less than 140 fasting and less than 200 after meals. Patient may adjust insulin by 2 units if blood sugars remain elevated above 200. Further adjustment can be done by his PCP. Patient with obstructive sleep apnea. Recommend follow up with pulmonology within 1 week to help arrange to get a new CPAP machine at home. Patient with chronic back pain. Patient will be provided a limited supply of Tylenol #3. He may take this 3 times a day NEEDED FOR PAIN. PCP has arrange for him to see a pain specialist. This specialists is not within insurance network. Recommend to contact PCP or insurance to find a specialist within insurance at work. Patient with anxiety. At discharge he will continue with his current medication of Wellbutrin XL 300 mg daily and Xanax 1 mg 1 pill twice daily as needed for anxiety. Recommend to follow up with PCP to further monitor and adjust medication. Patient with hyperlipidemia. At discharge will continue with Lipitor 40 mg daily. Vital Signs/Physical Exam: Temp Pulse Resp BP Pulse Ox 96.4 F L 74 24 H 117/56 L 94 10/19/19 04:48 10/19/19 04:48 10/19/19 04:48 10/19/19 04:48 10/19/19 04:48 General: Alert, In no apparent distress, Oriented x3, Cooperative HEENT: Atraumatic Neck: Supple Respiratory: Other (Patient breathing appropriately) Cardiovascular: Normal pulses Neurological: Normal speech, Normal strength at 5/5 x4 extr, Normal tone, Normal affect Laboratory Data at Discharge: WBC 5.2 K/uL (4.3-10.9) 10/18/19 14:00 Hgb 13.5 g/dL (13.6-17.9) L 10/18/19 14:00 Hct 42.6 % (39.6-49.0) 10/18/19 14:00 Plt Count 132 K/uL (152-406) L 10/18/19 14:00 Sodium 142 mmol/L (136-145) 10/18/19 14:00 Potassium 4.1 mmol/L (3.5-5.1) 10/18/19 14:00 BUN 6 mg/dL (7-18) L 10/18/19 14:00 Creatinine 0.91 mg/dL (0.55-1.3) 10/18/19 14:00 Glucose 122 mg/dL (74-106) H 10/18/19 14:00 Magnesium 1.9 mg/dL (1.8-2.4) 10/18/19 14:00 Total Bilirubin 0.6 mg/dL (0.2-1.0) 10/18/19 14:00 AST 21 U/L (15-37) 10/18/19 14:00 ALT 34 U/L (12-78) 10/18/19 14:00 Alkaline Phosphatase 71 U/L (45-117) 10/18/19 14:00 Home Medications: ALPRAZolam [Xanax*] 1 mg PO BIDP PRN 09/25/19 Amlodipine [Norvasc*] 10 mg PO DAILY 09/25/19 Bupropion *Xl* [Wellbutrin XL*] 300 mg PO DAILY 09/25/19 Metoprolol Tartrate [Lopressor] 100 mg PO BID 09/25/19 Atorvastatin Calcium [Lipitor] 40 mg PO BEDTIME #30 tab 10/05/19 Cholecalciferol (Vitamin D3) [Vitamin D 1000 Iu Tab*] 2,000 unit PO DAILY tab 10/05/19 Insulin Glargine Human [Lantus*] 18 units SQ BID #20 ml 10/05/19 Thiamine HCl [Vitamin B-1*] 200 mg PO DAILY #14 tablet 10/05/19 Zinc Sulfate [Zinc Sulfate*] 220 mg PO DAILY #28 cap 10/05/19 Ascorbic Acid [Vitamin C*] 500 mg PO DAILY #30 tablet 10/19/19 Aspirin [Aspirin EC 81 MG] 81 mg PO DAILY #90 tablet. 10/19/19 predniSONE [Prednisone*] 20 mg PO SEECOM #15 tab 10/19/19 New Medications: Aspirin [Aspirin EC 81 MG] 81 mg PO DAILY #90 tablet. predniSONE [Prednisone*] 20 mg PO SEECOM #15 tab Ascorbic Acid [Vitamin C*] 500 mg PO DAILY #30 tablet Patient Discharge Instructions: 1. Recommend follow up with PCP in 1 week to follow up this hospitalization. 2. Patient presented with dyspnea, cough secondary to persistent bilateral COVID 19 pneumonia with hypoxia. Patient had been recently hospitalized and sent home with oxygen. He apparently ran out of prednisone and was not able follow up with Pulmonary for PCP. Patient was evaluated emergency room. CT shows bilateral pneumonia. No pulmonary embolism noted. The patient was admitted for observation. Patient responded well to IV steroids. At discharge she is without significant shortness of breath. Patient with mild cough. Patient will be discharged home. Patient will continue with prednisone 20 mg 1 pill twice daily for 5 days then 1 pill once daily for 5 days. Patient may also continue with supplementation including vitamin-C, thiamine, zinc and vitamin-D. Patient will continue with incentive spirometer. Patient encouraged to cough to help with his breathing exercises. Recommend no cough suppressants at this time. Patient will need a follow up closely with pulmonology within 1 week to follow up his care. Pulmonary to further adjust his steroid over time. Education on COVID19 will be provided. Patient will continue with home oxygen to maintain sats above 93%. Will try to arrange for home health at discharge. 3. Patient with hypertension. This has remained stable. At discharge he will continue with his current medications Norvasc 10 mg daily and metoprolol 100 mg 1 pill twice daily. Will also recommend to continue aspirin 81 mg daily. Recommend to maintain blood pressure less 150/80. Further adjustment can be done by his PCP. 4. Patient with diabetes mellitus type 2. Patient insulin dependent. At discharge he will continue with his current insulin regimen Lantus 18 units subcu twice daily. Recommend to maintain blood sugars less than 140 fasting and less than 200 after meals. Patient may adjust insulin by 2 units if blood sugars remain elevated above 200. Further adjustment can be done by his PCP. 5. Patient with obstructive sleep apnea. Recommend follow up with pulmonology within 1 week to help arrange to get a new CPAP machine at home. 6. Patient with chronic back pain. Patient will be provided a limited supply of Tylenol #3. He may take this 3 times a day NEEDED FOR PAIN. PCP has arrange for him to see a pain specialist. This specialists is not within insurance network. Recommend to contact PCP or insurance to find a specialist within insurance at work. 7. Patient with anxiety. At discharge he will continue with his current medication of Wellbutrin XL 300 mg daily and Xanax 1 mg 1 pill twice daily as needed for anx iety. Recommend to follow up with PCP to further monitor and adjust medication. 8. Patient with hyperlipidemia. At discharge will continue with Lipitor 40 mg daily. Diet: ADA Activity: Ad dominic Time spent managing pt's care (in minutes): 55
[2019-10-19] MEDS: INSULIN -REGULAR HUMAN 50 UNIT/0.5 ML ML SQ SCH ×2 (07:50→11:29)
[2019-10-19] MEDS: METOPROLOL TAR 50 MG TAB PO SCH (07:51)
[2019-10-19] MEDS: ENOXAPARIN 40 MG/0.4 ML SQ SCH (07:52)
[2019-10-19] MEDS ORDERED: THIAMINE HCL 100 MG TABLET PO SCH (09:00)
[2019-10-19] MEDS ORDERED: FOLIC ACID 1 MG TABLET PO SCH (09:00)
[2019-10-19] MEDS ORDERED: BUPROPION HCL XL 150 MG TAB PO SCH (09:00)
[2019-10-19] MEDS ORDERED: AMLODIPINE 10 MG TAB PO SCH (09:00)
[2019-10-19] MEDS ORDERED: ASCORBIC ACID 500 MG TABLET PO SCH (09:00)
[2019-10-19] MEDS ORDERED: ZINC SULFATE 220 MG CAP PO SCH (09:00)
[2019-10-19 11:25] VITALS: O2SAT 93
--- NOTE | 2019-10-19 11:50 | P.PN ---
Subjective Date of Service: 10/19/19 Primary Care Provider: Dr. Ramírez Chief Complaint: Cohen virus pneumonia Subjective: Improving (Patient was recently admitted with cohen virus pneumonia he was discharged any became worse came back in the emergency room started complaining of worsening dyspnea coughing he feels better now and read got worse when the prednisone was stopped) Review of Systems General: Weakness Respiratory: Shortness of Breath Physical Examination - Vital Signs Temperature: 96.7 F Blood Pressure: 148/58 Pulse: 70 Respirations: 18 Pulse Ox (%): 95 - Studies Laboratory Data (last 24 hrs) 10/18/19 14:00: WBC 5.2, Hgb 13.5 L, Hct 42.6, Plt Count 132 L 10/18/19 14:00: Sodium 142, Potassium 4.1, BUN 6 L, Creatinine 0.91, Glucose 122 H, Magnesium 1.9, Total Bilirubin 0.6, AST 21, ALT 34, Alkaline Phosphatase 71 Assessment & Plan - Problems (Diagnosis) (1) Acute hypoxemic respiratory failure due to COVID-19 Current Visit: No Status: Acute Plan: Patient is 59 years of age admitted with hypoxemia he has been doing much better got worse and his prednisone was stopped agree with discharge on prednisone his C-reactive protein is 10 oxygen levels satisfactory is 93% on 2 L chest x-ray shows significant interstitial lung disease
== END 2019-10-19 12:45 | disposition home health service (06) ==
LOC: ER 11:27 → ERHOLD 15:54 → 4TH 17:50
PROVIDERS: ADMIT Family Medicine; ATTEND Family Medicine
DX: U07.1 COVID-19 (principal); J12.89 Other viral pneumonia; J96.01 Acute respiratory failure with hypoxia; Z99.81 Dependence on supplemental oxygen; G47.33 Obstructive sleep apnea (adult) (pediatric); E11.9 Type 2 diabetes mellitus without complications; I10 Essential (primary) hypertension; G89.29 Other chronic pain; M54.9 Dorsalgia, unspecified; F41.9 Anxiety disorder, unspecified; E78.5 Hyperlipidemia, unspecified; E66.01 Morbid (severe) obesity due to excess calories; Z68.42 Body mass index [BMI] 45.0-49.9, adult; Z79.4 Long term (current) use of insulin; Z79.01 Long term (current) use of anticoagulants; Z80.9 Family history of malignant neoplasm, unspecified
CPT/HCPCS: 96365; 93005; 87040 ×2; 85025; 80048; 36415; 83735; 87205; 82565; 82947 ×4; 85379; 80076; 84484; 82728; 84145; 83880; 86140; 71275; 71046; 96375; 99285; 96366; Q9967; J1650 ×2; J2175; J2930 ×3; G0378 ×3; J1815

== ENCOUNTER 2022-03-07 10:49 | Emergency (ER) | payer BC ==
--- OUTSIDE RECORDS SUMMARY | 2022-03-07 10:54 | XMS REPORT | Continuity of Care Document ---
:1960 Author Organization [facility] t Address [address] [place] [address] Care Team Providers Name Role Phone Juan Ramírez Primary Care Physician Shayy Boateng Attending Clinician Unavailable Radiology Attending Clinician Unavailable RADIOLOGY Attending Clinician Unavailable CHAVEZ FIGUEROA Attending Clinician Unavailable KNOW, DOES_NOT Admitting Clinician Unavailable CHAVEZ FIGUEROA Admitting Clinician Unavailable Payers Payer Name Policy Type Policy Number Effective Date Expiration Date S ource Problems Condition Condition Condition Status Onset Resolution Last Treating Co mments Source Name Details Category Date Date Treatment Clinician Date Total knee Total knee Disease Active U nivers replacemen replacemen 4-08 it y of t status t status 00:00: [place] 00 Medical Branch Total knee Total knee Disease Active Overview : Univers replacemen replacemen 4-05 Formattin ity of t status, t status, 00:00: [place] of this [place] left left 00 note Medical might be Branch different from the original. Added automatic ally from request for surgery [id number] Primary Primary Disease Active Overview: Univ ers osteoarthr osteoarthr 3-18 Formattin ity of itis of itis of 00:00: g of this [place] left knee left knee 00 note [facility] might be Branch different from the original. Added automatic ally from request for surgery [id number] Allergies, Adverse Reactions, Alerts Allergy Allergy Status Severity Reaction(s) Onset Inactive Treating Comm ents Source Name Type Date Date Clinician NO KNOWN Drug Active Univers ALLERGIE Class ity of S [facility] Social History Social Habit Start Date Stop Date Quantity Comments Source Alcohol intake 2018-07-23 2018-07-23 Current University of 00:00:00 00:00:00 non-drinker of [facility] alcohol Branch (finding) Tobacco use and 2018-01-12 2018-01-12 Current user Univers ity of exposure 00:00:00 00:00:00 [facility] Sex Ass[birth year] At [birth year] Universit y of 00:00:00 00:00:00 [facility] Smoking Status Start Date Stop Date Source Never smoker [facility] Branch Medications Ordered Filled Start Stop Current Ordering Indication Dosage Frequency Signature Comments Components Source Medication Medication Date Date Medication? Clinician (SIG) Name Name pentazocine Yes [id number] 1{tbl} Take 1 Univers -naloxone 4-14 05 tablet by ity o f 50-0.5 mg 00:00: mouth [place] tablet 00 every 4 Medical (four) Branch hours as needed for Pain. pentazocine Yes [id number] 1{tbl} Take 1 Univers -naloxone 4-14 05 tablet by ity o f 50-0.5 mg 00:00: mouth [place] tablet 00 every 4 Medical (four) Branch hours as needed for Pain. losartan Yes 100mg Take 100 Univ ers 100 mg 4-10 mg by ity of tablet 12:57: mouth [place] 14 daily. Medical Branch losartan 25 Yes 25mg Take 25 mg Univers mg tablet 4-10 by mouth ity of 12:57: daily. [address] Branch amLODIPine Yes 10mg Take 10 mg U nivers 10 mg 4-10 by mouth ity of tablet 12:57: daily. [place] [address] Medical Branch losartan Yes 100mg Take 100 Univ ers 100 mg 4-10 mg by ity of tablet 12:57: mouth [place] 14 daily. Medical Branch losartan 25 Yes 25mg Take 25 mg Univers mg tablet 4-10 by mouth ity of 12:57: daily. [address] amLODIPine Yes 10mg Take 10 mg U nivers 10 mg 4-10 by mouth ity of tablet 12:57: daily. [address] acetaminoph Yes [id number] 1{tbl} Take 1 Univers en-codeine 4-09 05 tablet by ity of (TYLENOL-CO 00:00: mouth [place] DEINE #3) 00 every 4 Medical 300-30 mg (four) Branch tablet hours as needed for Pain (scale 4-6) or Pain (scale 7-10). acetaminoph Yes [id number] 1{tbl} Take 1 Univers en-codeine 4-09 05 tablet by ity of (TYLENOL-CO 00:00: mouth [place] DEINE #3) 00 every 4 Medical 300-30 mg (four) Branch tablet hours as needed for Pain (scale 4-6) or Pain (scale 7-10). tadalafil Yes 20mg 20 mg. Univer s 20 mg 1-23 ity of tablet 00:00: [address] tadalafil Yes 20mg Take 20 mg Un gino 20 mg 1-23 by mouth ity of tablet 00:00: daily. [address] tadalafil Yes 20mg 20 mg. Univer s 20 mg 1-23 ity of tablet 00:00: [address] tadalafil Yes 20mg Take 20 mg Un gino 20 mg 1-23 by mouth ity of tablet 00:00: daily. [address] Procedures Procedure Date / Time Performed Performing Clinician [facility] e CT LUMBAR SPINE WO 2021-03-16 22:29:25 Akbar Esquedait y of [place] CONTRAST [facility] CT CERVICAL SPINE WO 2021-03-16 22:26:41 Akbar Esqueda ity [facility] CONTRAST [facility] Branch CONSENT/REFUSAL FOR 2021-03-16 21:58:22 Doctor Unassigned, No Un [facility] DIAGNOSIS AND Name Medical Branch TREATMENT ASSIGNMENT OF BENEFITS 2021-03-16 21:57:58 Doctor Unassigned, No [facility] Medical Branch Encounters Start End Encounter Admission Attending Care Care Encounter Source Date/Time Date/Time Type Type Clinicians Facility Department ID 2021-07-27 Inpatient RITESH Keyes DAYS [id number] [facility] 09:00:00 Shayy Anton [facility] 2021-03-16 2021-03-16 [facility] Radiology [facility] [id number] Univers 16:04:15 23:59:00 Encounter [place] [id number] ity of [place] [id number] [facility] [id number] [address] 2021-03-16 2021-03-16 Outpatient R RADIOLOGY [facility] [id number] Univers 16:03:58 16:03:00 ity of [facility] 2021-03-16 2021-03-16 [facility] Radiology [facility] [id number] Univers 16:00:00 16:03:00 Encounter [place] [id number] ity of [place] [id number] [facility] [id number] [address] 2019-10-07 2019-10-07 Outpatient [facility] PDPFEHT [facility] 00:00:00 00:00:00 [id number] 2019-02-16 2019-02-16 Emergency X HENRY [facility] ERT [id number] Univers 16:29:25 18:11:[address] [facility] Results This patient has no known results.
--- NOTE | 2022-03-07 12:11 | RAD REPORT ---
EXAM DESCRIPTION: RAD - Chest Single View - 03/07/2022 12:04 pm CLINICAL HISTORY: cough, sob COMPARISON: Chest Pa And Lat (2 Views) dated 10/18/2019; Chest Single View dated 09/29/2019; Chest Sin gle View dated 09/25/2019; Chest Single View dated 09/22/2019 FINDINGS: Lines: None. Lungs: No evidence of edema or pneumonia. Pleural: No significant pleural effusions or pneumothorax. Cardiac: The heart size is within normal limits. Mediastinum: Within normal limits. Bones: No acute fractures. Other: None IMPRESSION: No acute cardiopulmonary disease.
[2022-03-07 12:19] LABS: SARS-COV-2 RT PCR NEGATIVE (NEGATIVE)
--- NOTE | 2022-03-07 12:24 | EDPHYS ---
Physician Documentation [facility] [place] [facility] Name: Juan Gloria Age: 62 yrs Sex: Male : 1960 Arrival Date: 03/07/2022 Time: 10:54 Bed IW1 Private MD: Juan Ramírez E ED Physician Shorty Zuniga HPI: 03/07 11:03 This 62 yrs old Black Male presents to ER via Ambulatory with complaints of Cough, jmm Breathing Difficulty, Chills. 11:03 The patient or guardian reports cough. Onset: The symptoms/episode began/occurred jmm gradually, 1 day(s) ago. Modifying factors: The symptoms are alleviated by nothing, the symptoms are aggravated by nothing. This is a 62-year-old male with history diabetes mellitus and hypertension the presents emerged department with complaints of cough, congestion, shortness of breath, body aches beginning last night. Denies any vomiting or diarrhea. Denies any chest pain.. Historical: - Allergies: 11:01 No Known Allergies; ll1 - PMHx: 11:01 Hypertension; Diabetes mellitus; ll1 - Immunization history:: Client reports receiving the 2nd dose of the Covid vaccine. - Social history:: Smoking status: Patient denies any tobacco usage or history of. ROS: 11:03 Constitutional: Positive for body aches, fever. jmm 11:03 ENT: Positive for sore throat. 11:03 Respiratory: Positive for cough. 11:03 All other systems are negative. Exam: 11:03 Constitutional: This is a well developed, well nourished patient who is awake, alert, jmm and in no acute distress. Head/Face: atraumatic. Eyes: EOMI, no conjunctival erythema appreciated ENT: Moist Mucus Membranes Neck: Trachea midline, Supple Chest/axilla: Normal chest wall appearance and motion. Cardiovascular: Regular rate and rhythm. No edema appreciated Respiratory: Normal respirations, no respiratory distress appreciated Abdomen/GI: Non distended Back: Normal ROM Skin: General appearance color normal MS/ Extremity: Moves all extremities, no obvious deformities appreciated, no edema noted to the lower extremities Neuro: Awake and alert Psych: Behavior is normal, Mood is normal, Patient is cooperative and pleasant Vital Signs: 10:59 BP 146 / 82; Pulse 99; Resp 20; Temp 99.0; Pulse Ox 96% ; Weight 156.49 kg; Height 5 ll1 ft. 10 in. (177.80 cm); Pain 8/10; 12:55 BP 165 / 94; Pulse 94; Resp 19; Pulse Ox 97% on R/A; ll1 10:59 Body Mass Index 49.50 (156.49 kg, 177.80 cm) ll1 MDM: 11:08 Patient medically screened. [facility] 12:23 Data reviewed: vital signs, nurses notes. Counseling: I had a detailed discussion with zenaida the patient and/or guardian regarding: the historical points, exam findings, and any diagnostic results supporting the discharge/admit diagnosis, lab results, radiology results, the need for outpatient follow up, to return to the emergency department if symptoms worsen or persist or if there are any questions or concerns that arise at home. ED course: Patient is alert nontoxic in appearance in the ED. No signs respiratory distress. Patient vies follow-up PCP and otherwise given strict return precautions. Patient understood agrees plan of care.. 03/07 11:03 Order name: COVID-19/FLU A+B; Complete Time: 12:20 1 03/07 11:09 Order name: Chest Single View XRAY; Complete Time: 12:16 [facility] Administered Medications: 12:49 Drug: Tamiflu (oseltamivir) 75 mg Route: PO; 1 12:56 Follow up: Response: No adverse reaction ll1 Disposition: 16:42 Co-signature as Attending Physician, Shorty Zuniga DO I was immediately available on-site ms3 in the Emergency Department for consultation in the care of the patient. Disposition Summary: 03/07/22 12:24 Discharge Ordered Location: Home [facility] Condition: Stable [facility] Diagnosis - Influenza [facility] Followup: neema - With: Juan Ramírez MD - When: 2 - 3 days - Reason: Recheck today's complaints, Continuance of care, Re-evaluation by your physician Discharge Instructions: - Discharge Summary Sheet [facility] - Influenza, Adult [facility] Forms: - Medication Reconciliation Form [facility] - Thank You Letter neema - Antibiotic Education [facility] - Prescription Opioid Use [facility] - Work release form ll1 Prescriptions: - Tamiflu 75 mg Oral Capsule - take 1 tablet by ORAL route every 12 hours for 5 days; 10 tablet; Refills: 0, [facility] Product Selection Permitted - promethazine-DM - take 10 milliliter by ORAL route every 4-6 hours As needed; 200 milliliter; [facility] Refills: 0, Product Selection Permitted - Zanaflex 4 mg Oral Tablet - take 1 tablet by ORAL route every 8 hours As needed; 20 tablet; Refills: 0, zenaida Product Selection Permitted Signatures: Dispatcher [employer] Mello Medeiros PA PA jmm Lewis, Lynsay, RN RN ll1 Shorty Zuniga DO DO ms3
--- NOTE | 2022-03-07 12:24 | ER ---
Nurse's Notes [facility] Name: Juan Gloria Age: 62 yrs Sex: Male : 1960 Arrival Date: 03/07/2022 Time: 10:54 Bed IW1 Private MD: Juan Ramírez E Diagnosis: Influenza Presentation: 03/07 10:59 Chief complaint: Patient states: Chills, cough, slight SOB, GARCIA, back pain since ll1 yesterday evening. No known fever. Slight diarrhea. Coronavirus screen: Vaccine status: Patient reports receiving the 2nd dose of the covid vaccine. Client denies travel out of the [place] in the last 14 days. chills, cough unrelated to allergies, diarrhea, difficulty breathing, fatigue, headache, muscle pain, shaking with chills, shortness of breath, Client presents with at least one sign or symptom that may indicate coronavirus-19. Standard/surgical mask placed on the client. Ebola Screen: Patient denies travel to an Ebola-affected area in the 21 days before illness onset. Initial Sepsis Screen: Does the patient meet any 2 criteria? HR > 90 bpm. No. Patient's initial sepsis screen is negative. Does the patient have a suspected source of infection? Yes: Productive cough/pneumonia. Risk Assessment: Do you want to hurt yourself or someone else? Patient reports no desire to harm self or others. Onset of symptoms was March 06, 2022. 10:59 Method Of Arrival: Ambulatory ll1 10:59 Acuity: MANDA 3 ll1 Triage Assessment: 11:00 General: Appears uncomfortable, ill, Behavior is calm, cooperative, appropriate for 1 age. Pain: Complains of pain in head Quality of pain is described as aching. EENT: Reports nasal congestion. Neuro: Reports headache. Respiratory: Reports cough that is Onset: The symptoms/episode began/occurred yesterday, the patient has moderate shortness of breath. GI: Reports diarrhea. Musculoskeletal: Reports pain in back. Historical: - Allergies: 11: No Known Allergies; ll1 - PMHx: 11:01 Hypertension; Diabetes mellitus; ll1 - Immunization history:: Client reports receiving the 2nd dose of the Covid vaccine. - Social history:: Smoking status: Patient denies any tobacco usage or history of. Screenin:[facility] Fall Risk Assessment (Adult) Impaired Gait Yes (1 pt) Mobility Assist ll1 Device Used Yes (1 pt) Score/Fall Risk Level 0 - 2 = Low Risk Oriented to surroundings, Maintained a safe environment, Educated pt \T\ family on fall prevention, incl call for assistance when getting out of bed, Hourly rounding (assess needs \T\ fall precautionary measures) done. Abuse screen: Denies threats or abuse. Nutritional screening: No deficits noted. Tuberculosis screening: No symptoms or risk factors identified. Assessment: 11:53 Reassessment: No changes from previously documented assessment. to X ray via stretcher. ll1 12:50 Reassessment: No changes from previously documented assessment. Patient and/or family ll1 updated on plan of care and expected duration. Pain level reassessed. Patient is alert, oriented x 3, equal unlabored respirations, skin warm/dry/pink. 12:56 Cardiovascular: Rhythm is sinus tachycardia. Respiratory: Airway is patent Respiratory ll1 effort is even, unlabored, Breath sounds are clear bilaterally. Vital Signs: 10:59 BP 146 / 82; Pulse 99; Resp 20; Temp 99.0; Pulse Ox 96% ; Weight 156.49 kg; Height 5 ll1 ft. 10 in. (177.80 cm); Pain 8/10; 12:55 BP 165 / 94; Pulse 94; Resp 19; Pulse Ox 97% on R/A; ll1 10:59 Body Mass Index 49.50 (156.49 kg, 177.80 cm) ll1 ED Course: 10:54 Patient arrived in ED. rg4 10:54 Jaun Ramírez MD is Private Physician. rg4 10:58 Mello Baron PA is PHCP. m 10:58 Shorty Zuniga DO is Attending Physician. jmm 11:01 Triage completed. ll1 11:02 Arm band placed on. ll1 11:15 COVID-19/FLU A+B Sent. ll1 12:06 Chest Single View XRAY In Process Unspecified. EDMS 12:23 Juan Ramírez MD is Referral Physician. jmm 12:25 Shana Renteria, CALI is Primary Nurse. ll1 12:26 Patient has correct armband on for positive identification. Cardiac monitoring not ll1 applicable on this patient. 12:56 No provider procedures requiring assistance completed. Patient did not have IV access ll1 during this emergency room visit. Administered Medications: 12:49 Drug: Tamiflu (oseltamivir) 75 mg Route: PO; ll1 12:56 Follow up: Response: No adverse reaction ll1 Medication: 12:57 VIS not applicable for this client. ll1 Outcome: 12:24 Discharge ordered by . zenaida 12:57 Discharged to home via wheelchair. ll1 12:57 Condition: stable 12:57 Discharge instructions given to patient, Instructed on discharge instructions, follow up and referral plans. medication usage, Demonstrated understanding of instructions, follow-up care, medications, Prescriptions given X 3. 12:57 Patient left the ED. 1 Signatures: Dispatcher [employer] EDMS Mello Baron PA PA jmm Garcia, Rubi rg4 Shana Renteria RN RN 1
[2022-03-07] MEDS ORDERED: OSELTAMIVIR 75 MG CAP PO ONE (12:35)
[2022-03-07 13:02] VITALS: TEMP 99
[2022-03-07 13:03] VITALS: BP 165/94; O2SAT 97
== END 2022-03-07 12:57 | disposition home or self-care (01) ==
LOC: ER 10:49
DX: J11.1 Influenza due to unidentified influenza virus with other respiratory manifestations (principal); Z20.822 Contact with and (suspected) exposure to COVID-19; I10 Essential (primary) hypertension
CPT/HCPCS: 0240U; 71045; 99284

== ENCOUNTER 2023-06-02 12:02 | Emergency (ER) | payer BC ==
--- OUTSIDE RECORDS SUMMARY | 2023-06-02 12:05 | XMS REPORT | Continuity of Care Document ---
Author Name Unknown Address [address] [place] [address] [facility] thconnect Address [address] [place] [address] Care Team Providers Care Nitroglycerin Distributor Name Role Phone Juan Ramírez Primary Care Physician Shayy Boateng Attending Clinician Unavailable ARMOND MANRIQUEZ Attending Clinician Unavailab ANTONIO Brunner Attending Clinician Unavailable Radiology Attending Clinician Unavailable RADIOLOGY Attending Clinician Unavailable CHAVEZ FIGUEROA Attending Clinician Unavailable KNOW, DOES_NOT Admitting Clinician Unavailable CHAVEZ FIGUEROA Admitting Clinician Unavailable Payers Payer Name Policy Type Policy Number Effective Date Expirati on Date Source [facility] 9 [id number] 2023 00:00:00 Problems Condition Name Condition Details Condition Category Status Onset Date Resolution Date Last Treatment Date Treating Clinician Comments Source HTN (hypertens ion) HTN (hypertens ion) Disease Active 03-18 00:00: 00 Emilia salas NINO (obstructi ve sleep apnea) NINO (obstructi ve sleep apnea) Disease Active 03-18 00:00: 00 Emilia salas Total knee replacemen t status Total knee replacemen t status Disease Active 06-08 00:00: 00 [facility] Total knee replacemen t status, left Total knee replacemen t status, left Disease Active 06-05 00:00: 00 Overview: Formattin g of this note might be different from the original. Added automatic ally from request for surgery [id number] [facility] Primary osteoarthr itis of left knee Primary osteoarthr itis of left knee Disease Active 05-18 00:00: 00 Overview: Formattin g of this note might be different from the original. Added automatic ally from request for surgery [id number] [facility] Allergies, Adverse Reactions, Alerts Allergy Name Allergy Type Status Severity Reaction(s) Onset Date Inactive Date Treating Clinician Comments Source NO KNOWN ALLERGIE S Drug Class Active [facility] Social History Social Habit Start Date Stop Date Quantity Comments Source Sexual orientation Mike jose Persaud - External History of Social function 2023-03-18 00:00:00 2023-03-18 00:00:00 Emilia Persaud - External Alcohol intake 2018-07-23 00:00:00 2018-07-23 00:00:00 Current non-drinker of alcohol (finding) [facility] Tobacco use and exposure 2018-01-12 00:00:00 2018-01-12 00:00:00 Current user [facility] Sex Assigned At 1960 00:00:00 1960 00:00:00 Emilia Persaud - External Smoking Status Start Date Stop Date Source Never smoked tobacco Emilia Persaud - External Medications Ordered Medication Name Filled Medication Name Start Date Stop Date Current Medication? Ordering Clinician Indication Dosage Frequency Signature (SIG) Comments Components Source HYDROcodone -Acetaminop hen 10-325 MG oral Tablet 03-18 09:32: 21 Yes 1{tbl} Q.25D Take 1 tablet by mouth every 6 hours as needed for pain. Emilia salas Amlodipine Besylate 10 MG oral Tablet 03-18 09:08: 45 Yes 10mg Take 1 tablet (10 mg total) by mouth daily. Emilia Cori Stroud josue pentazocine -naloxone 50-0.5 mg tablet 06-14 00:00: 00 Yes [id number] 05 1{tbl} Take 1 tablet by mouth every 4 (four) hours as needed for Pain. [facility] pentazocine -naloxone 50-0.5 mg tablet 06-14 00:00: 00 Yes [id number] 05 1{tbl} Take 1 tablet by mouth every 4 (four) hours as needed for Pain. [facility] losartan 100 mg tablet 06-10 12:57: 14 Yes 100mg Take 100 mg by mouth daily. [facility] losartan 25 mg tablet 06-10 12:57: 14 Yes 25mg Take 25 mg by mouth daily. [facility] amLODIPine 10 mg tablet 06-10 12:57: 14 Yes 10mg Take 10 mg by mouth daily. [facility] losartan 100 mg tablet 06-10 12:57: 14 Yes 100mg Take 100 mg by mouth daily. [facility] losartan 25 mg tablet 06-10 12:57: 14 Yes 25mg Take 25 mg by mouth daily. [facility] amLODIPine 10 mg tablet 06-10 12:57: 14 Yes 10mg Take 10 mg by mouth daily. [facility] acetaminoph en-codeine (TYLENOL-CO DEINE #3) 300-30 mg tablet 06-09 00:00: 00 Yes [id number] 05 1{tbl} Take 1 tablet by mouth every 4 (four) hours as needed for Pain (scale 4-6) or Pain (scale 7-10). [facility] acetaminoph en-codeine (TYLENOL-CO DEINE #3) 300-30 mg tablet 06-09 00:00: 00 Yes [id number] 05 1{tbl} Take 1 tablet by mouth every 4 (four) hours as needed for Pain (scale 4-6) or Pain (scale 7-10). [facility] tadalafil 20 mg tablet 03-25 00:00: 00 Yes 20mg 20 mg. [facility] tadalafil 20 mg tablet 03-25 00:00: 00 Yes 20mg Take 20 mg by mouth daily. [facility] tadalafil 20 mg tablet 03-25 00:00: 00 Yes 20mg 20 mg. [facility] tadalafil 20 mg tablet 03-25 00:00: 00 Yes 20mg Take 20 mg by mouth daily. [facility] Procedures Procedure Date / Time Performed Performing Clinicia n Source CT LUMBAR SPINE WO CONTRAST 2021-03-16 22:29:25 Akbar Esqueda [facility] CT CERVICAL SPINE WO CONTRAST 2021-03-16 22:26:41 Akbar Esqueda [facility] CONSENT/REFUSAL FOR DIAGNOSIS AND TREATMENT 2021-03-16 21:58:22 Doctor Unassigned, [place] [facility] ASSIGNMENT OF BENEFITS 2021-03-16 21:57:58 Docto r Unassigned, [place] [facility] Encounters Start Date/Time End Date/Time Encounter Type Admission Type Attending [facility] Care Facility Care Department Encounter ID Source 2021-07-27 09:00:00 Inpatient Sh[facility]y [facility] [id number] [facility] 2023-05-14 15:00:00 2023-05-14 15:00:00 Outpatient ARMOND MANRIQUEZ [id number] [facility] 2023-04-18 10:30:00 2023-04-18 10:30:00 Outpatient ARMOND MANRIQUEZ [id number] [facility] 2023-03-18 09:00:00 2023-03-18 09:00:00 Outpatient ARMOND MANRIQUEZ [id number] [facility] 2023-03-18 00:00:00 2023-03-18 00:00:00 Outpatient EMILIA FRANCOIS [id number] [facility] 2023-03-18 00:00:00 2023-03-18 00:00:00 Outpatient ARMOND MANRIQUEZ EMILIA [id number] [facility] 2023-03-18 00:00:00 2023-03-18 00:00:00 Outpatient [facility]ANCO[facility] [id number] [facility]23[facility]18 00:00:00 2023-03-18 00:00:00 Outpatient ANTONIO PEREZ [facility]ILIA [id number] [facility] 2021-03-16 16:04:15 2021-03-16 23:59:00 Hospital Encounter Radiology [facility] [id number] [facility] 2021-03-16 16:03:58 2021-03-16 16:03:00 Outpatient R RADIOLOGY [facility] [id number] [facility] 2021-03-16 16:00:00 2021-03-16 16:03:00 Hospital Encounter Radiology [facility] [id number] [facility] 2019-10-07 00:00:00 2019-10-07 00:00:00 Outpatient [facility] PDPFEHTRRY [id number] [facility] 2019-02-16 16:29:25 2019-02-16 18:11:00 Emergency X CHAVEZ FIGUEROA RUST ERT [id number] [facility]
--- NOTE | 2023-06-02 12:47 | EDPHYS ---
Physician Documentation [facility] Name: Juan Gloria Age: 63 yrs Sex: Male : 1960 Arrival Date: 06/02/2023 Time: 12:02 Bed IW10 Private MD: Yohannes Shipley ED Physician Meek Best HPI: 06/01 12:45 This 63 yrs old Black Male presents to ER via Ambulatory with complaints of Foot Pain. ec2 12:45 Patient arrives today due to concern for left foot pain. Patient complains of left foot ec2 pain ongoing for several days. Patient complaining of pain at the heel of the foot. No recent falls injuries or trauma, denies any fevers or chills, no nausea or vomiting.. Historical: - Allergies: 12:29 No Known Allergies; ph - PMHx: 12:29 diabetes mellitus; Hypertension; ph - Immunization history:: Adult Immunizations unknown. - Infectious Disease History:: Denies. - Social history:: Smoking status: Patient denies any tobacco usage or history of. ROS: 12:45 Constitutional: as per hpi ec2 Exam: 12:45 Constitutional: GEN: NAD Head: atraumatic Eyes: EOMI Ears: External ears are ec2 normal. CV: regular rate LUNGS: no respiratory distress ABD: non-distended SKIN: Scant amount erythema noted to the heel of the left foot, no fluctuance appreciated. MSK: no evidence of trauma, good range of motion of the left lower extremity, good dorsiflexion and plantarflexion noted. NEURO: moves all extremities equally Vital Signs: 12:25 BP 158 / 87; Pulse 91; Resp 18; Temp 97.9; Pulse Ox 96% on R/A; Weight 158.76 kg; ph Height 5 ft. 9 in. ; 12:25 Body Mass Index 51.69 (158.76 kg, 175.26 cm) ph MDM: 12:42 Patient medically screened. ec2 12:45 Data reviewed: vital signs. ED course: Patient arrives today for left foot pain. ec2 Examination remarkable for well-appearing nontoxic but was otherwise in no acute distress with skin MSK findings as above. Suspect possible early infection causing patient discomfort. Will start patient antibiotics, follow-up primary care doctor. Return precautions given.. Administered Medications: 12:55 Drug: Cephalexin PO 500 mg PO once Route: PO; ph 13:07 Follow up: Response: No adverse reaction ph 12:55 Drug: Ketorolac IM 30 mg IM once Route: IM; Site: right deltoid; ph 13:07 Follow up: Response: No adverse reaction ph 12:55 Drug: Acetaminophen-Codeine PO (300 mg-30 mg) 1 tablet PO once; RASS on ADMIN: Combtv4, ph Very Agttd3, Agttd2, Rstlss1, AlertClm0, Drwsy-1, Lt Sdtn-2, Mod Sdtn-3, Dp Sdtn-4, UnArsble-5 Route: PO; 13:07 Follow up: Response: No adverse reaction; Medication administered at discharge. ph Disposition Summary: 06/02/23 12:46 Discharge Ordered Notes: Location: Home ec2 Condition: Stable ec2 Diagnosis - Cellulitis of left lower limb ec2 Followup: ec2 - With: Private Physician - When: - Reason: Re-evaluation by your physician Discharge Instructions: - Discharge Summary Sheet ec2 - Cellulitis, Adult, Bazs-kz-Rapa ec2 Forms: - Medication Reconciliation Form ec2 - Thank You Letter ec2 - Antibiotic Education ec2 - Prescription Opioid Use ec2 - Patient Portal Instructions ec2 - Leadership Thank You Letter ec2 Prescriptions: - Cephalexin 500 mg Oral capsule - take 1 capsule ORAL route every 6 hours for 7 days; 28 capsule; Refills: 0, ec2 Product Selection Permitted Signatures: Faye Melchor RN RN Meek Best MD MD ec2
--- NOTE | 2023-06-02 12:47 | ER ---
Nurse's Notes [facility] Name: Juan Gloria Age: 63 yrs Sex: Male : 1960 Arrival Date: 06/02/2023 Time: 12:02 Bed IW10 Private MD: Yohannes Shipley Diagnosis: Cellulitis of left lower limb Presentation: 06/01 12:25 Chief complaint: Patient states: Pain in back of L foot, Achilles tendon area, since ph Friday, denies trauma, states that area is hot to the touch. Coronavirus screen: Vaccine status: Patient reports receiving the 2nd dose of the covid vaccine. Ebola Screen: No symptoms or risks identified at this time. Initial Sepsis Screen: Does the patient meet any 2 criteria? No. Patient's initial sepsis screen is negative. Does the patient have a suspected source of infection? No. Patient's initial sepsis screen is negative. Risk Assessment: Do you want to hurt yourself or someone else? Patient reports no desire to harm self or others. Onset of symptoms was June 02, 2023. 12:25 Method Of Arrival: Ambulatory 12:25 Acuity: MANDA 4 ph Triage Assessment: 12:30 General: Appears in no apparent distress. comfortable, Behavior is calm, cooperative, ph appropriate for age. Pain: Complains of pain in left Achilles Pain radiates to left heel. Cardiovascular: Capillary refill < 3 seconds in bilateral fingers Patient's skin is warm and dry. Historical: - Allergies: 12:29 No Known Allergies; ph - PMHx: 12:29 diabetes mellitus; Hypertension; ph - Immunization history:: Adult Immunizations unknown. - Infectious Disease History:: Denies. - Social history:: Smoking status: Patient denies any tobacco usage or history of. Screenin:07 [facility] ED Fall Risk Assessment (Adult) History of falling in the last 3 months, ph including since admission No falls in past 3 months (0 pts) Confusion or Disorientation No (0 pts) Intoxicated or Sedated No (0 pts) Impaired Gait No (0 pts) Mobility Assist Device Used Yes (1 pt) Altered Elimination No (0 pt) Score/Fall Risk Level 0 - 2 = Low Risk Oriented to surroundings, Maintained a safe environment, Hourly rounding (assess needs \T\ fall precautionary measures) done. Abuse screen: Denies threats or abuse. Denies injuries from another. Nutritional screening: No deficits noted. Tuberculosis screening: No symptoms or risk factors identified. Assessment: 12:35 Reassessment: Dr. Best in triage for evaluation. ll1 13:07 General: Appears in no apparent distress. uncomfortable, Behavior is calm, cooperative, ph appropriate for age. Pain: Complains of pain in left Achilles. Neuro: Level of Consciousness is awake, alert, obeys commands, Oriented to person, place, time, situation. Vital Signs: 12:25 BP 158 / 87; Pulse 91; Resp 18; Temp 97.9; Pulse Ox 96% on R/A; Weight 158.76 kg; ph Height 5 ft. 9 in. ; 12:25 Body Mass Index 51.69 (158.76 kg, 175.26 cm) ph ED Course: 12:05 Patient arrived in ED. rg4 12:05 Yohannes Shipley DO is Private Physician. rg4 12:20 Meek Best MD is Attending Physician. ec2 12:29 Triage completed. ph 12:30 Arm band placed on Patient placed in waiting room, Patient notified of wait time. ph 12:48 Faye Melchor, RN is Primary Nurse. ph 13:08 Patient has correct armband on for positive identification. ph 13:08 No provider procedures requiring assistance completed. Patient did not have IV access ph during this emergency room visit. Administered Medications: 12:55 Drug: Cephalexin PO 500 mg PO once Route: PO; ph 13:07 Follow up: Response: No adverse reaction ph 12:55 Drug: Ketorolac IM 30 mg IM once Route: IM; Site: right deltoid; ph 13:07 Follow up: Response: No adverse reaction ph 12:55 Drug: Acetaminophen-Codeine PO (300 mg-30 mg) 1 tablet PO once; RASS on ADMIN: Combtv4, ph Very Agttd3, Agttd2, Rstlss1, AlertClm0, Drwsy-1, Lt Sdtn-2, Mod Sdtn-3, Dp Sdtn-4, UnArsble-5 Route: PO; 13:07 Follow up: Response: No adverse reaction; Medication administered at discharge. ph Medication: 13:08 VIS not applicable for this client. ph Outcome: 12:46 Discharge ordered by . ec2 13:08 Discharged to home ambulatory, with family, ph 13:08 Condition: good :08 Discharge instructions given to patient, Instructed on discharge instructions, follow up and referral plans. medication usage, Demonstrated understanding of instructions, follow-up care, medications, Prescriptions given X 1, :08 Patient left the ED. ph Signatures: Faye Melchor RN RN Xenia Díaz4 Shana Renteria RN RN ll1 Meek Best MD MD ec2
[2023-06-02] MEDS ORDERED: CEPHALEXIN 250 MG CAP ONE (12:56)
[2023-06-02] MEDS ORDERED: CODEINE 30MG/APAP 300MG TAB ONE (12:57)
[2023-06-02] MEDS ORDERED: KETOROLAC 30 MG/ML INJ ONE (12:57)
[2023-06-02 18:30] VITALS: BP 158/87; TEMP 97.9; O2SAT 96
== END 2023-06-02 13:08 | disposition home or self-care (01) ==
LOC: ER 12:02
DX: L03.116 Cellulitis of left lower limb (principal)
CPT/HCPCS: 96372; 99284

== ENCOUNTER 2024-04-12 09:55 | Inpatient (IN) | payer OTHER, BC ==
--- OUTSIDE RECORDS SUMMARY | 2024-04-12 09:58 | XMS REPORT | Continuity of Care Document ---
Author Name Unknown Address [address] [place] [address] [facility] thconnect Address [address] [place] [address] Care Team Providers Care Fluxer Name Role Phone Juan Ramírez Primary Care Physician Shayy Boateng Attending Clinician Unavailable ARMOND MANRIQUEZ Attending Clinician Unavailab ANTONIO Brunner Attending Clinician Unavailable Radiology Attending Clinician Unavailable RADIOLOGY Attending Clinician Unavailable CHAVEZ FIGUEROA Attending Clinician Unavailable KNOW, DOES_NOT Admitting Clinician Unavailable CHAVEZ FIGUEROA Admitting Clinician Unavailable Payers Payer Name Policy Type Policy Number Effective Date Expirati on Date Source [facility] 9 [id number] 2023 00:00:00 Problems Condition Name Condition Details Condition Category Status Onset Date Resolution Date Last Treatment Date Treating Clinician Comments Source HTN (hypertens ion) HTN (hypertens ion) Disease Active 16 00:00: 00 Emilia salas NINO (obstructi ve sleep apnea) NINO (obstructi ve sleep apnea) Disease Active 03-18 00:00: 00 Emilia salas Total knee replacemen t status Total knee replacemen t status Disease Active 06-08 00:00: 00 [facility] Total knee replacemen t status, left Total knee replacemen t status, left Disease Active 06-05 00:00: 00 Overview: Formattin g of this note might be different from the original. Added automatic ally from request for surgery [id number] [facility] Primary osteoarthr itis of left knee Primary osteoarthr itis of left knee Disease Active 05-18 00:00: 00 Overview: Formattin g of this note might be different from the original. Added automatic ally from request for surgery [id number] [facility] Allergies, Adverse Reactions, Alerts Allergy Name Allergy Type Status Severity Reaction(s) Onset Date Inactive Date Treating Clinician Comments Source NO KNOWN ALLERGIE S Drug Class Active [facility] Social History Social Habit Start Date Stop Date Quantity Comments Source Sexual orientation Mike jose Persaud - External History of Social function 2023-03-18 00:00:00 2023-03-18 00:00:00 Emilia Persaud - External Alcohol intake 2018-07-23 00:00:00 2018-07-23 00:00:00 Current non-drinker of alcohol (finding) [facility] Tobacco use and exposure 2018-01-12 00:00:00 2018-01-12 00:00:00 Current user [facility] Sex Assigned At 1960 00:00:00 1960 00:00:00 [...] mg total) by mouth daily. Emilia Cori salas pentazocine -naloxone 50-0.5 mg tablet 06-14 00:00: 00 Yes [id number] 05 1{tbl} Take 1 tablet by mouth every 4 (four) hours as needed for Pain. [facility] losartan 100 mg tablet 06-10 12:57: 14 Yes 100mg Take 100 mg by mouth daily. [facility] losartan 25 mg tablet 06-10 12:57: 14 Yes 25mg Take 25 mg by mouth daily. [facility] amLODIPine 10 mg tablet 06-10 12:57: 14 Yes 10mg Take 10 mg by mouth daily. [facility] acetaminoph en-codeine (TYLENOL-CO DEINE #3) 300-30 mg tablet 06-09 00:00: 00 Yes [id number] 05 1{tbl} Take 1 tablet by mouth every 4 (four) hours as needed for Pain (scale 4-6) or Pain (scale 7-10). [facility] tadalafil 20 mg tablet 03-25 00:00: 00 Yes 20mg 20 mg. [facility] Procedures Procedure Date / Time Performed Performing Clinicia n Source CT LUMBAR SPINE WO CONTRAST 2021-03-16 22:29:25 Akbar Esqueda [facility] CT CERVICAL SPINE WO CONTRAST 2021-03-16 22:26:41 Akbar Esqueda [facility] CONSENT/REFUSAL FOR DIAGNOSIS AND TREATMENT 2021-03-16 21:58:22 Doctor Unassigned, [place] [facility] ASSIGNMENT OF BENEFITS 2021-03-16 21:57:58 Docto r Unassigned, [place] [facility] Encounters Start Date/Time End Date/Time Encounter Type Admission Type Attending [facility] Care Facility Care Department Encounter ID Source 2021-07-27 09:00:00 Inpatient Shayy Keyes [facility] DAYS [id number] 65 [facility] 2023-05-14 15:00:00 2023-05-14 15:00:00 Outpatient ARMOND MANRIQUEZ [id number] [facility] 2023-04-18 10:30:00 2023-04-18 10:30:00 Outpatient ARMOND MANRIQUEZ [id number] [facility] 2023-03-18 09:00:00 2023-03-18 09:00:00 Outpatient ARMOND MANRIQUEZ [id number] [facility] 2023-03-18 00:00:00 2023-03-18 00:00:00 Outpatient ARMOND MANRIQUEZ [id number] [facility] 2023-03-18 00:00:00 2023-03-18 00:00:00 Outpatient EMILIA EMILIA [id number] [facility] 2023-03-18 00:00:00 2023-03-18 00:00:00 Outpatient JACQUELINEANTONIO Lewis EMILIA EMILIA [id number] [facility] 2023-03-18 00:00:00 2023-03-18 00:00:00 Outpatient EMILIA FRANCOIS [id number] [facility] 2021-03-16 16:04:15 2021-03-16 23:59:00 Hospital Encounter Radiology [facility] [id number] [facility] 2021-03-16 16:03:58 2021-03-16 16:03:00 Outpatient R RADIOLOGY [facility] [id number] [facility] 2021-03-16 16:00:00 2021-03-16 16:03:00 Hospital Encounter Radiology [facility] [id number] [facility] 2019-10-07 00:00:00 2019-10-07 00:00:00 Outpatient [facility] PDPFEHTRRY [id number] [facility] 2019-02-16 16:29:25 2019-02-16 18:11:00 Emergency X CHAVEZ FIGUEROA [facility] [id number] [facility]
[2024-04-12] MEDS ORDERED: ONDANSETRON 4 MG/2 ML VIAL ONE (10:29)
[2024-04-12] MEDS ORDERED: MORPHINE 4 MG/ML SYR ONE (10:30)
[2024-04-12 10:39] LABS: Absolute Basophils 0.1 K/uL (0-0.5); Absolute Eosinophils 0.2 K/uL (0-0.5); Absolute Lymphocytes (CBC) 2.5 K/uL (0.7-4.9); Absolute Monocytes 0.7 K/uL (0.1-1.3); Absolute Neutrophil 3.6 K/uL (1.8-8.0); Basophils % 1.5 % (0-1.3); Eosinophils % 3.4 % (0-4.4); Hematocrit 42.2 % (39.6-49.0); Hemoglobin 13.1 g/dL (13.6-17.9); Lymphocytes % 34.8 % (15.3-44.8); MCH 22.7 pg (27.0-35.0); MCV 73.4 fL (80-100); MPV 7.7 fL (7.6-11.3); Monocytes % 10.2 % (3.3-12.3); Neutrophils % 50.1 % (41.7-73.7); Nucleated Red Blood Cells % 0.1 % (0-0); Platelets 278 thou/uL (152-406); RBC Red Blood Cell Count 5.74 M/uL (4.33-5.43); Red Cell Distribution Width 17.6 % (12.1-15.2)
[2024-04-12 10:57] LABS: ALT/SGPT 22 U/L (16-61); AST/SGOT 22 U/L (15-37); Albumin/Globulin Ratio 0.6 (1.1-1.8); Alkaline Phosphatase 69 U/L (45-117); Anion Gap 9.2 mEq/L (5.0-15.0); BUN Blood Urea Nitrogen 15 mg/dL (7-18); Bicarbonate 25 mEq/L (21-32); Bilirubin Total 0.4 mg/dL (0.2-1.0); Globulin 5.3 g/dL (2.3-3.5); Glomerular Filtration Rate 63 ml/min (=/>90); Glucose Level 173 mg/dL (74-106); Lipase 38 U/L (13-75); Potassium 4.2 mEq/L (3.5-5.1); Protein, Total 8.3 g/dL (6.4-8.2); Sodium Level 135 mEq/L (136-145); Troponin High Sensitivity 5.9 pg/mL (<58.9)
[2024-04-12 11:00] LABS: Bilirubin Direct < 0.2 mg/dL (0-0.2); Bilirubin Indirect, Calculated 0.2 mg/dL (0.2-0.8)
[2024-04-12] MEDS ORDERED: LORazepam 2 MG/ML VIAL ONE (11:37)
[2024-04-12] MEDS ORDERED: FENTANYL CITR 100 MCG/2 ML ONE (11:37)
--- NOTE | 2024-04-12 11:51 | RAD REPORT ---
EXAM: CTA of the chest, abdomen and pelvis HISTORY: Chest pain and back pain Chest back abd pain COMPARISON: None TECHNIQUE: Multiple contiguous axial images were obtained a CTA of the chest and abdomen with contras t per aortic dissection protocol. This involves 3D reconstructions, MIPs, volume rendered images and/or shaded surface rendering. One or more of the following dose reduction techniques were used: Au tomated exposure control, adjustment of the mA and/or kV according to patient size, and/or iterative reconstruction. Unless otherwise specified, incidental findings do not require dedicated im aging follow-up. Sagittal and coronal 3-D MIP reformats were performed. FINDINGS: PULMONARY ARTERIES: Normal in caliber without filling defects to suggest pulmonary emboli. ASCENDING THORACIC AORTA: Normal caliber without evidence of dissection or aneurysmal dilatation. DESCENDING THORACIC AORTA: Normal caliber without evidence of dissection or aneurysmal dilatation. ABDOMINAL AORTA: Normal caliber without evidence of dissection or aneurysmal dilatation. CELIAC TRUNK: Patent. SMA: Patent CHATA: Patent RENAL ARTERIES: Bilateral single renal arteries without significant atherosclerotic disease. MEDIASTINUM: No hilar or mediastinal lymphadenopathy. Calcified subcarinal lymph node. LUNGS: No focal infiltrates or masses. PLEURAL SPACE: No pleural effusion or pneumothorax. LIVER: Unremarkable. SPLEEN: Unremarkable. PANCREAS: Unremarkable. KIDNEYS: Unremarkable. ADRENALS: Unremarkable. BOWEL: Prominent sigmoid diverticulosis coli without diverticulitis.. Normal appendix. RETROPERITONEUM: No lymphadenopathy. BONES: Postoperative changes of lumbar fusion. ADDITIONAL FINDINGS: Bilateral moderate inguinal hernias containing fat. IMPRESSION: No evidence of thoracic or abdominal aortic aneurysm or dissection.
--- NOTE | 2024-04-12 12:09 | ER ---
Nurse's Notes [facility] Name: Juan Gloria Age: 64 yrs Sex: Male : 1960 Arrival Date: 04/12/2024 Time: 09:55 Bed 6 Private MD: Diagnosis: Chest pain, unspecified Presentation: 04/12 10:10 Chief complaint: Patient states: stomach pains radiating into his back , started last iw night, worse this morning , +nausea, no vomiting , also having chest pain. Coronavirus screen: At this time, the client does not indicate any symptoms associated with coronavirus-19. Ebola Screen: No symptoms or risks identified at this time. Initial Sepsis Screen: Does the patient meet any 2 criteria? No. Patient's initial sepsis screen is negative. Does the patient have a suspected source of infection? No. Patient's initial sepsis screen is negative. Risk Assessment: Do you want to hurt yourself or someone else? Patient reports no desire to harm self or others. 10:10 Method Of Arrival: Wheelchair iw 10:10 Acuity: MANDA 2 iw 14:10 Onset of symptoms was April 11, 2024. cm10 Historical: - Allergies: 10:11 No Known Allergies; iw - PMHx: 10:11 diabetes mellitus; Hypertension; iw - PSHx: 10:11 knee; back; ankle; iw - Immunization history:: Adult Immunizations not up to date. - Infectious Disease History:: Denies. - Social history:: Smoking status: Patient denies any tobacco usage or history of. - Family history:: not pertinent. Screenin:20 [facility] ED Fall Risk Assessment (Adult) History of falling in the last 3 months, aa5 including since admission No falls in past 3 months (0 pts) Confusion or Disorientation No (0 pts) Intoxicated or Sedated No (0 pts) Impaired Gait Yes (1 pt) Mobility Assist Device Used Yes (1 pt) Altered Elimination No (0 pt) Score/Fall Risk Level 0 - 2 = Low Risk Oriented to surroundings, Maintained a safe environment, Educated pt \T\ family on fall prevention, incl call for assistance when getting out of bed, Assessed \T\ reinforced patient's understanding of fall precautions. Abuse screen: Denies threats or abuse. Nutritional screening: No deficits noted. Tuberculosis screening: No symptoms or risk factors identified. Assessment: 10:20 General: Appears uncomfortable, obese, Behavior is calm, cooperative. Pain: Complains aa5 of pain in right upper quadrant and left upper quadrant Pain radiates to back Pain currently is 9 out of 10 on a pain scale. Quality of pain is described as crampy, sharp, Pain began 1 day ago. Is continuous. Neuro: Level of Consciousness is awake, alert, obeys commands, Oriented to person, place, time, situation. Cardiovascular: Patient's skin is warm and dry. Respiratory: Airway is patent Respiratory effort is even, unlabored, Respiratory pattern is regular, symmetrical. GI: Abdomen is obese, Bowel sounds present X 4 quads. Abd is soft and non tender X 4 quads. Reports nausea, Patient currently denies vomiting. : No signs and/or symptoms were reported regarding the genitourinary system. EENT: No signs and/or symptoms were reported regarding the EENT system. Derm: Skin is dry, Skin is normal, Skin temperature is warm. Musculoskeletal: Range of motion: intact in all extremities. Vital Signs: 10:10 BP 156 / 98; Pulse 95; Resp 20; Weight 156.49 kg; Height 5 ft. 9 in. ; Pain 9/10; iw 10:20 BP 169 / 96; Pulse 75; Resp 22 S; Temp 97.8(O); Pulse Ox 98% on R/A; aa5 10:35 Pulse Ox 93% on R/A; aa5 10:35 Pulse Ox 97% on 3 lpm NC; aa5 13:14 BP 176 / 88; Pulse 93; Resp 18; Pulse Ox 92% on 2 lpm NC; cm10 10:10 Body Mass Index 50.95 (156.49 kg, 175.26 cm) iw 10:10 Pain Scale: Adult iw ED Course: 09:59 Patient arrived in ED. al6 10:00 Deny Faulkner MD is Attending Physician. rt 10:11 Triage completed. iw 10:12 Arm band placed on. iw 10:21 Lisette Hein, RN is Primary Nurse. aa5 10:27 Initial lab(s) drawn, by me, sent to lab. Inserted saline lock: 20 gauge in right aa5 antecubital area, using aseptic technique. Blood collected. Flushed with 10 mL NS. 10:29 Patient has correct armband on for positive identification. Placed in gown. Bed in low ap3 position. Call light in reach. Side rails up X2. Client placed on continuous cardiac and pulse oximetry monitoring. NIBP monitoring applied. hospital monitor on. Pulse ox on. NIBP on. Door closed. Noise minimized. 10:29 EKG done, by ED staff, reviewed by Lisette Hein RN. ap3 11:03 Report given to CALI Lazar. aa5 11:03 No provider procedures requiring assistance completed. aa5 11:28 CT Aorta for Dissection In Process Unspecified. EDMS 12:08 Zohaib Townsend is Hospitalizing Provider. rt 14:10 Provided Education on: Need for admit. cm10 14:10 Patient admitted, IV remains in place. cm10 Administered Medications: 10:30 Drug: Ondansetron IVP 4 mg IVP once; over 2 minutes Route: IVP; Site: right antecubital;aa5 10:40 Follow up: Response: No adverse reaction aa5 10:32 Drug: morphine IVP or IV 4 mg IVP once over 4 mins Route: IVP; Infused Over: 4 mins; aa5 Site: right antecubital; 10:40 Follow up: Response: No adverse reaction aa5 11:53 Drug: fentaNYL (PF) IVP 75 mcg IVP once Route: IVP; Site: right antecubital; cm10 12:30 Follow up: Response: No adverse reaction cm10 11:53 Drug: Ativan IVP 1 mg IVP once Route: IVP; Site: right antecubital; cm10 12:30 Follow up: Response: No adverse reaction cm10 Medication: 10:38 VIS not applicable for this client. aa5 Outcome: 12:09 Decision to Hospitalize by Provider. rt 14:10 Patient left the ED. iw 14:10 Admitted to Tele accompanied by tech, via stretcher, cm10 14:10 Condition: good cm10 14:10 Instructed on the need for admit, Signatures: Dispatcher [employer] Kika Pereyra RN RN iw Calderon, Lisette RN RN aa5 Jessica Ramesh RN RN ap3 Deny Faulkner MD MD rt Cady Escobedo RN RN cm10 Erica Rosas6
--- NOTE | 2024-04-12 12:09 | EDPHYS ---
Physician Documentation [facility] Name: Juan Gloria Age: 64 yrs Sex: Male : 1960 Arrival Date: 04/12/2024 Time: 09:55 Bed 6 Private MD: ED Physician Deny Faulkner HPI: 04/12 10:29 This 64 yrs old Black Male presents to ER via Wheelchair with complaints of Nausea, rt stomach cramps. 10:29 Patient presents to the ED with chest pain, abdominal pain, back pain. Patient states rt the pain started last night as a generalized abdominal pain radiating laterally to the back. States that symptoms had worsened today and he developed a substernal chest pain, nonradiating. He has associated nausea but denies other acute complaints at this time, symptoms are moderate severity, no other aggravating or elevating factors.. Historical: - Allergies: 10:11 No Known Allergies; iw - PMHx: 10:11 diabetes mellitus; Hypertension; iw - PSHx: 10:11 knee; back; ankle; iw - Immunization history:: Adult Immunizations not up to date. - Infectious Disease History:: Denies. - Social history:: Smoking status: Patient denies any tobacco usage or history of. - Family history:: not pertinent. ROS: 10:29 Constitutional: Negative for fever, chills, and weight loss, Respiratory: Negative for rt shortness of breath, cough, wheezing, and pleuritic chest pain, MS/Extremity: Negative for injury and deformity, Skin: Negative for injury, rash, and discoloration, Neuro: Negative for headache, weakness, numbness, tingling, and seizure, 10:29 Cardiovascular: Positive for chest pain, Negative for edema, 10:29 Abdomen/GI: Positive for abdominal pain, nausea, Exam: 10:29 Constitutional: This is a well developed, well nourished patient who is awake, alert, rt and in no acute distress. Head/Face: Normocephalic, atraumatic. Chest/axilla: Normal chest wall appearance and motion. Nontender with no deformity. No lesions are appreciated. Cardiovascular: Regular rate and rhythm with a normal S1 and S2. No gallops, murmurs, or rubs. Normal PMI, no JVD. No pulse deficits. Respiratory: Lungs have equal breath sounds bilaterally, clear to auscultation and percussion. No rales, rhonchi or wheezes noted. No increased work of breathing, no retractions or nasal flaring. Abdomen/GI: Soft, non-tender, with normal bowel sounds. No distension or tympany. No guarding or rebound. No evidence of tenderness throughout. Skin: Warm, dry with normal turgor. Normal color with no rashes, no lesions, and no evidence of cellulitis. MS/ Extremity: Pulses equal, no cyanosis. Neurovascular intact. Full, normal range of motion. Neuro: Awake and alert, GCS 15, oriented to person, place, time, and situation. Cranial nerves II-XII grossly intact. Motor strength 5/5 in all extremities. Sensory grossly intact. Cerebellar exam normal. Normal gait. 10:29 ECG was reviewed by the Attending Physician. Vital Signs: 10:10 BP 156 / 98; Pulse 95; Resp 20; Weight 156.49 kg; Height 5 ft. 9 in. ; Pain 9/10; iw 10:20 BP 169 / 96; Pulse 75; Resp 22 S; Temp 97.8(O); Pulse Ox 98% on R/A; aa5 10:35 Pulse Ox 93% on R/A; aa5 10:35 Pulse Ox 97% on 3 lpm NC; aa5 13:14 BP 176 / 88; Pulse 93; Resp 18; Pulse Ox 92% on 2 lpm NC; cm10 10:10 Body Mass Index 50.95 (156.49 kg, 175.26 cm) iw 10:10 Pain Scale: Adult iw MDM: 10:13 Medical Screening Exam initiated rt 11:56 Differential diagnosis: ACS, aortic dissection, diverticulitis, pancreatitis. Data rt reviewed: vital signs, nurses notes, lab test result(s), EKG, radiologic studies. Consideration of Admission/Observation Patient was admitted/placed on observation. Management of patient was discussed with the following: Hospitalist: Agrees to admit. Test considered but Not performed: Labs: CT angiogram performed, chest x-ray did not needed. Care significantly affected by the following chronic conditions: Diabetes, Hypertension. Scoring Tools HEART Score: History: Moderately Suspicious (1) ECG: Non specific repolarization disturbance/ LBTB/ PM (1) Age: > or = 65 years (2) Risk Factors: 1 or 2 Risk factors (1) Troponin: < or = 1 x Normal limit (0) Total Score = 5. Counseling: I had a detailed discussion with the patient and/or guardian regarding the historical points, exam findings, and any diagnostic results supporting the discharge/admit diagnosis, lab results, radiology results, the need for further work-up and treatment in the hospital. Response to treatment: the patient's symptoms have markedly improved after treatment. 04/12 10:19 Order name: Basic Metabolic Panel; Complete Time: 11: rt 04/12 10:19 Order name: CBC with Diff; Complete Time: 11: rt 04/12 10:19 Order name: LFT's; Complete Time: 11: rt 04/12 10:19 Order name: Troponin HS; Complete Time: : rt 04/12 10:19 Order name: UAM rt 04/12 10:19 Order name: Lipase; Complete Time: 11: rt 04/12 12:44 Order name: Basic Metabolic Panel EDMS 04/12 12:44 Order name: Basic Metabolic Panel EDMS 04/12 12:44 Order name: Basic Metabolic Panel EDMS 04/12 12:44 Order name: Basic Metabolic Panel EDMS 04/12 12:44 Order name: Basic Metabolic Panel EDMS 04/12 12:44 Order name: Basic Metabolic Panel EDMS 04/12 12:44 Order name: Basic Metabolic Panel EDMS 04/12 12:44 Order name: Basic Metabolic Panel EDMS 04/12 12:44 Order name: Lipid Profile EDMS 04/12 12:44 Order name: Lipid Profile EDMS 04/12 12:44 Order name: Magnesium EDMS 04/12 12:44 Order name: Magnesium EDMS 04/12 12:44 Order name: Magnesium EDMS 04/12 12:44 Order name: Magnesium EDMS 04/12 12:44 Order name: Urine Drug Screen EDMS 04/12 12:44 Order name: CBC with Automated Diff EDMS 04/12 12:44 Order name: CBC with Automated Diff EDMS 04/12 12:44 Order name: CBC with Automated Diff EDMS 04/12 12:44 Order name: CBC with Automated Diff EDMS 04/12 12:44 Order name: CBC with Automated Diff EDMS 04/12 12:44 Order name: CBC with Automated Diff EDMS 04/12 12:44 Order name: CBC with Automated Diff EDMS 04/12 12:44 Order name: CBC with Automated Diff EDMS 04/12 12:44 Order name: SARS-COV-2 Antigen Rapid EDMS 04/12 12:45 Order name: Influenza Screen (A EDMS 04/12 12:45 Order name: Respiratory Syncytial Virus Ag EDMS 04/12 12:45 Order name: Magnesium EDMS 04/12 12:45 Order name: Magnesium EDMS 04/12 12:45 Order name: Magnesium EDMS 04/12 12:45 Order name: Magnesium EDMS 04/12 12:45 Order name: Phosphorus EDMS 04/12 12:45 Order name: Phosphorus EDMS 04/12 12:45 Order name: Phosphorus EDMS 04/12 12:45 Order name: Phosphorus EDMS 04/12 12:45 Order name: Phosphorus EDMS 04/12 12:45 Order name: Phosphorus EDMS 04/12 12:45 Order name: Phosphorus EDMS 04/12 12:45 Order name: Phosphorus EDMS 04/12 12:45 Order name: Troponin High Sensitivity EDMS 04/12 12:45 Order name: Troponin High Sensitivity EDMS 04/12 12:45 Order name: Troponin High Sensitivity EDMS 04/12 12:58 Order name: Alcohol Serum/Plasma EDMS 04/12 10:19 Order name: CT Aorta for Dissection; Complete Time: 11:52 rt 04/12 10:19 Order name: Cardiac monitoring; Complete Time: 10:29 rt 04/12 10:19 Order name: EKG - Nurse/Tech; Complete Time: 10:29 rt 04/12 10:19 Order name: IV Saline Lock; Complete Time: 10:36 rt 04/12 10:19 Order name: Labs collected and sent; Complete Time: 10:36 rt 04/12 10:19 Order name: O2 Per Protocol; Complete Time: 10:29 rt 04/12 10:19 Order name: O2 Sat Monitoring; Complete Time: 10:29 rt EC:29 Rate is 95 beats/min. Rhythm is regular, Normal Sinus Rhythm with No ectopy, rt Bifascicular block noted. Left axis deviation noted. HI interval is normal. QRS interval is normal. QT interval is normal. No Q waves. No ST changes noted. Interpreted by me. Administered Medications: 10:30 Drug: Ondansetron IVP 4 mg IVP once; over 2 minutes Route: IVP; Site: right antecubital;aa5 10:40 Follow up: Response: No adverse reaction aa5 10:32 Drug: morphine IVP or IV 4 mg IVP once over 4 mins Route: IVP; Infused Over: 4 mins; aa5 Site: right antecubital; 10:40 Follow up: Response: No adverse reaction aa5 11:53 Drug: fentaNYL (PF) IVP 75 mcg IVP once Route: IVP; Site: right antecubital; cm10 12:30 Follow up: Response: No adverse reaction cm10 11:53 Drug: Ativan IVP 1 mg IVP once Route: IVP; Site: right antecubital; cm10 12:30 Follow up: Response: No adverse reaction cm10 Disposition Summary: 04/12/24 12:09 Hospitalization Ordered Notes: Hospitalization Status: Observation rt Provider: Zohaib Townsend rt Location: Telemetry/MedSurg (observation) rt Condition: Stable rt Problem: new rt Symptoms: have improved rt Bed/Room Type: Standard rt Room Assignment: 405(04/12/24 12:53) bd Diagnosis - Chest pain, unspecified rt Forms: - Medication Reconciliation Form rt - SBAR form rt - Leadership Thank You Letter rt Signatures: Dispatcher [employer] EDKarolyn Welch bd Kika Hansen RN RN iw Lisette Hein RN RN aa5 Deny Faulkner MD MD rt Cady Escobedo RN RN cm10 Corrections: (The following items were deleted from the chart) 10:20 10:20 BASIC METABOLIC PANEL+C.LAB.BRZ ordered. EDMS EDMS 10:20 10:20 CBC+H.LAB.BRZ ordered. EDMS EDMS 10:20 10:20 HEPATIC FUNCTION+C.LAB.BRZ ordered. EDMS EDMS 10:20 10:20 Troponin High Sensitivity+C.LAB.BRZ ordered. EDMS EDMS 10:20 10:20 Urinalysis W/Microscopic+U.LAB.BRZ ordered. EDMS EDMS 10:20 10:20 LIPASE+C.LAB.BRZ ordered. EDMS EDMS 10:20 10:20 Angio Aorta For Dissection+CT.RAD.BRZ ordered. EDMS EDMS 12:53 12:09 rt bd
[2024-04-12] MEDS ORDERED: ACETAMINOPHEN 325 MG TABLET PO PRN (12:35)
[2024-04-12] MEDS ORDERED: SODIUM CHLORIDE 0.9% 10ML INJ IV PRN (12:35)
--- NOTE | 2024-04-12 12:53 | P.HP ---
Certification for Inpatient Patient admitted to: Inpatient With expected LOS: <2 Midnights Practitioner: I am a practitioner with admitting privileges, knowledge of patient current condition, hospital course, and medical plan of care. Services: Services provided to patient in accordance with Admission requirements found in Title 42 Section 412.3 of the Code of Federal Regulations Patient History Date of Service: 04/12/24 Reason for admission: Diffuse chest, abd, and back pain History of Present Illness: Juan Gloria 64 year old male with pmhx HTN and DM-NIDDM who presents to the ED with diffuse and intractable chest, abdominal, and back pain that started last night. He reports epigastric abdominal started then radiated to his back and chest. He denies acid reflux but reports drinking 6-8 beers every other day with his last drinking splurge [place]. CT CAP showing sigmoid diverticulosis without diverticulitis. Lipase and LFTs WNL. Serum alco hol and UDS pending Juan will be admitted to hospitalist service for further evaluation of diffuse intractable pain. Allergies No Known Allergies Allergy (Verified 04/12/24 14:55) Home Medications: Amlodipine [Norvasc*] 10 mg PO DAILY 09/25/19 Cholecalciferol (Vitamin D3) [Vitamin D 1000 Iu Tab*] 2,000 unit PO DAILY tab 10/05/19 Thiamine HCl [Vitamin B-1*] 200 mg PO DAILY #14 tablet 10/05/19 Ascorbic Acid [Vitamin C*] 500 mg PO DAILY #30 tablet 10/19/19 Buspirone HCl [Buspar*] 5 mg PO BID 04/12/24 Celecoxib 100 mg PO BID 04/12/24 Dapagliflozin Propanediol [Farxiga] 10 mg PO DAILY 04/12/24 Ferrous Sulfate 325 mg PO DAILY 04/12/24 Metformin HCl 850 mg PO BID 04/12/24 Sertraline [Zoloft*] 50 mg PO DAILY 04/12/24 - Past Medical/Surgical History Diabetic: No -: Hypertension -: Obstructive sleep apnea -: Morbid obesity -: Knee surgery -: Back surgery -: Ankle surgery Psychosocial/ Personal History: Patient lives at home with his . - Family History Father -: Kidney disease Mother -: Cancer - Social History Alcohol use: Yes CD- Drugs: No Caffeine use: Yes Review of Systems Other: Per HPI Physical Examination - Physical Exam General: Alert, In no apparent distress, Oriented x3 HEENT: Atraumatic, Normocephalic, PERRLA Neck: Supple, 2+ carotid pulse no bruit Respiratory: Clear to auscultation bilaterally, Normal air movement Cardiovascular: Normal pulses, Regular rate/rhythm Capillary refill: <2 Seconds Gastrointestinal: Normal bowel sounds, Other (RUQ pain), Distended (obese) Musculoskeletal: No clubbing Integumentary: No rashes - Studies Laboratory Data (last 24 hrs) 04/12/24 04/12/24 10:27 10:27 WBC 7.20 Hgb 13.1 L Hct 42.2 Plt Count 278 Sodium 135 L Potassium 4.2 BUN 15 Creatinine 1.27 Glucose 173 H Total Bilirubin 0.4 AST 22 ALT 22 Alkaline Phosphatase 69 Lipase 38 Assessment and Plan - Plan Assessment and Plan Diffuse intractable abdominal, chest, and back pain Alcohol abuse -Reported drinking 6-8 beers yesterday during the super bowl -Reported diaphoresis and nausea -Protonix BID, carafate QID -COVID, FLU, RSV negative -Gentle IVF -lipase and LFT WNL -NPO -Serum alcohol and UDS pending - pain control Sigmoid diverticulosis without diverticulitis - supportive care - follow up outpatient Prolonged QT/QTc -hold medications that prolong QT/QTc DM-NIDDM -accucheck with SSI -serum glucose 173 HTN -Continue home medications DVT ppx lovenox Full code LOS 2 days Discharge Plan: Home Plan to discharge in: 48 Hours - Advance Directives Does patient have a Living Will: No Does patient have a Durable POA for Healthcare: No
[2024-04-12] MEDS: NA CHLORIDE 0.9% 1,000 ML IV SCH (14:20)
[2024-04-12 14:55] VITALS: BMI 50.9
[2024-04-12] MEDS: HEPARIN 5000 UNIT/ML 1 ML VIAL SQ SCH (16:12)
[2024-04-12] MEDS: INSULIN REGULAR (HUMAN) 100 UNIT/ML SQ SCH (16:30)
[2024-04-12 16:43] LABS: SARS-CoV-2 Antigen CONTROL BLUE LINE VIS/BG OK; SARS-CoV-2 Antigen Rapid Res Negative (Negative)
[2024-04-12] MEDS: PANTOPRAZOLE 40 MG INJ IVP SCH (19:42)
[2024-04-12] MEDS: MORPHINE 2 MG/ML SYR IV PRN (19:42)
[2024-04-12] MEDS: SUCRALFATE 1GM/10ML UCUP PO SCH (19:42)
[2024-04-13 05:11] LABS: Specific Gravity > 1.030 (1.005-1.030); Sqamous Epithelial <5 /HPF (None Seen); Urine Bacteria None Seen /HPF (<20); Urine Bilirubin NEGATIVE (Negative); Urine Blood Negative (Negative); Urine Clarity Clear (Clear); Urine Color Yellow (Yellow); Urine Culture Reflex Order NOT NEEDED; Urine Glucose NEGATIVE (Negative); Urine Ketones NEGATIVE (Negative); Urine Micro Reflex YN NO BILL MICROSCOPIC; Urine Mucus Slight /HPF (None Seen); Urine Nitrite NEGATIVE (Negative); Urine Protein TRACE (Negative); Urine RBC None Seen /HPF (None Seen); Urine Urobilinogen Normal (Normal); Urine WBC <5 /HPF (<5); Urine pH 5.5 (5.0-7.0)
[2024-04-13 05:49] LABS: Barbiturates NEGATIVE (NEGATIVE); Benzodiazepines NEGATIVE (NEGATIVE); Cocaine POSITIVE (NEGATIVE); METHAMPHETAM NEGATIVE (NEGATIVE); Methadone NEGATIVE (NEGATIVE); Opiates POSITIVE (NEGATIVE); Phencyclidine NEGATIVE (NEGATIVE); THC Cannibis NEGATIVE (NEGATIVE)
[2024-04-13 06:16] LABS: Absolute Basophils 0.1 K/uL (0-0.5); Absolute Monocytes 1.7 K/uL (0.1-1.3); Absolute Neutrophil 9.6 K/uL (1.8-8.0); Basophils % 0.5 % (0-1.3); Eosinophils % 0.1 % (0-4.4); Hematocrit 39.4 % (39.6-49.0); Hemoglobin 12.6 g/dL (13.6-17.9); MCH 23.2 pg (27.0-35.0); MCHC 32.1 g/dL (32.0-36.0); MCV 72.2 fL (80-100); Monocytes % 13.5 % (3.3-12.3); Neutrophils % 77.9 % (41.7-73.7); Platelets 247 thou/uL (152-406); RBC Red Blood Cell Count 5.45 M/uL (4.33-5.43); Red Cell Distribution Width 17.4 % (12.1-15.2)
[2024-04-13 06:28] LABS: Anion Gap 9.1 mEq/L (5.0-15.0); Magnesium 2.3 mg/dL (1.6-2.4); Phosphorus 3.4 mg/dL (2.5-4.9); Potassium 4.1 mEq/L (3.5-5.1)
[2024-04-13] MEDS: THIAMINE HCL 100 MG TABLET PO SCH (08:08)
[2024-04-13] MEDS: SERTRALINE HCL 50 MG TAB PO SCH (08:08)
[2024-04-13] MEDS: AMLODIPINE 10 MG TAB PO SCH (08:09)
[2024-04-13] MEDS: CELECOXIB 100 MG CAPSULE PO SCH (08:09)
[2024-04-13] MEDS: BUSPIRONE HCL 5 MG TABLET PO SCH (08:09)
--- NOTE | 2024-04-13 12:44 | EKG ---
Test Date: 2024-04-12 Test Time: 10:25:54 Dietician: ALP MEASUREMENT RESULTS: Intervals: Rate: 95 HI: 184 QRSD: 156 QT: 430 QTc: 540 [place]: P: -5 HI: 184 QRS: -75 T: 11 INTERPRETIVE STATEMENTS: Normal sinus rhythm Right bundle branch block Left anterior fascicular block Bifascicular block Abnormal ECG Compared to ECG 10/18/2019 13:46:50 No significant changes Electronically Signed On 04-13-24 12:41:39 HOOP COILER by J Carlos Fitzpatrick
--- NOTE | 2024-04-13 15:34 | P.PN ---
Date of Service: 04/13/24 Subjective: Still with right sided abd pain No other acute events overnight ROS: 10 point ROS as noted above, otherwise negative Physical exam GEN: Alert, oriented, NAD HEENT: Normal conjunctiva, sclera anicteric CV: Regular rate and rhythm, no edema Pulm: Nonlabored respirations on room air ABD: Soft, mild right sided abd tenderness, nondistended MSK: No joint tenderness Integumentary: No rashes Neuro: Normal speech, normal affect Vitals reviewed Assessment and Plan Diffuse intractable abdominal, chest, and back pain Alcohol abuse -Reported drinking 6-8 beers yesterday during the super bowl -Reported diaphoresis and nausea -Protonix BID, carafate QID -COVID, FLU, RSV negative -Gentle IVF -lipase and LFT WNL -UDS + cocaine -Abd US ordered , CTA negative for acute findings Sigmoid diverticulosis without diverticulitis - supportive care - follow up outpatient Prolonged QT/QTc -hold medications that prolong QT/QTc DM-NIDDM -accucheck with SSI -serum glucose 173 HTN -Continue home medications DVT ppx lovenox Full code LOS 2 days Discharge Plan: Home Plan to discharge in: 48 Hours Time Spent Managing Pts Care (In Minutes): 35
--- NOTE | 2024-04-13 16:31 | RAD REPORT ---
EXAMINATION: US Abdomen Exam Limited CLINICAL HISTORY: [facility] epigastric/RUQ pain, R/O cholecystitis COMPARISON: CT abdomen and pelvis 04/12/2024 TECHNIQUE: Limited upper abdominal grayscale and color flow sonographic images. FINDINGS: Gallbladder: Echogenic shadowing dependent 7 mm calculus near the neck. Other layering smaller calcul i. Mild layering sludge. Gallbladder wall is mildly thickened, 4 mm. Mild pericholecystic fluid. Bile ducts: No intrahepatic or extrahepatic biliary dilatation. Common bile duct measures 4 mm. Liver: Visualized portions of the liver demonstrate diffuse parenchymal echogenicity suggesting steat osis. Fluid: No ascites. IMPRESSION: Cholelithiasis with findings raising concern for acute cholecystitis. No evidence of intra or extrahepatic biliary ductal dilation. Diffuse hepatic steatosis.
[2024-04-13] MEDS ORDERED: D10W 125 ML IV PRN (16:42)
[2024-04-13] MEDS ORDERED: GLUCAGON 1 MG/VIAL IM PRN (16:42)
[2024-04-13] MEDS: PIPER TAZO 3.375 GM in NA CHLORIDE 0.9% 100 ML IV SCH (17:16)
[2024-04-14 06:18] LABS: Absolute Basophils 0.1 K/uL (0-0.5); Absolute Eosinophils 0.2 K/uL (0-0.5); Absolute Lymphocytes (CBC) 1.2 K/uL (0.7-4.9); Absolute Monocytes 1.6 K/uL (0.1-1.3); Absolute Neutrophil 11.3 K/uL (1.8-8.0); Basophils % 0.5 % (0-1.3); Eosinophils % 1.2 % (0-4.4); Hematocrit 38.9 % (39.6-49.0); Lymphocytes % 8.6 % (15.3-44.8); MCH 22.7 pg (27.0-35.0); MCV 73.2 fL (80-100); MPV 7.8 fL (7.6-11.3); Monocytes % 11.3 % (3.3-12.3); Neutrophils % 78.4 % (41.7-73.7); Platelets 241 thou/uL (152-406); RBC Red Blood Cell Count 5.31 M/uL (4.33-5.43); Red Cell Distribution Width 17.6 % (12.1-15.2)
[2024-04-14 06:38] LABS: Albumin 2.6 g/dL (3.4-5.0); Albumin/Globulin Ratio 0.5 (1.1-1.8); Anion Gap 7.7 mEq/L (5.0-15.0); Bilirubin Total 1.1 mg/dL (0.2-1.0); Globulin 5.2 g/dL (2.3-3.5); Magnesium 2.3 mg/dL (1.6-2.4); Phosphorus 2.2 mg/dL (2.5-4.9); Potassium 3.7 mEq/L (3.5-5.1); Protein, Total 7.8 g/dL (6.4-8.2)
[2024-04-14] MEDS ORDERED: MIDAZOLAM HCL 2 MG/2 ML INJ ONE (07:57)
[2024-04-14] MEDS ORDERED: ROCURONIUM 50 MG/5 ML VIAL IV ONE ×2 (08:02→09:34)
[2024-04-14] MEDS ORDERED: LIDOCAINE 1% MPF 5 ML VIAL ONE (08:02)
[2024-04-14] MEDS ORDERED: propofoL 200 MG/20 ML VIAL IV ONE (08:02)
[2024-04-14] MEDS ORDERED: FENTANYL CITR 100 MCG/2 ML ONE ×2 (08:02→09:47)
[2024-04-14] MEDS ORDERED: ONDANSETRON 4 MG/2 ML VIAL ONE (08:02)
[2024-04-14] MEDS ORDERED: KETOROLAC 30 MG/ML INJ ONE (08:02)
[2024-04-14] MEDS: NA CHLORIDE 0.9% 1,000 ML ONE (08:03)
--- NOTE | 2024-04-14 08:47 | P.CNS ---
Date of Consult: 04/14/24 Reason for consult: Abdominal pain History of present illness: Patient is a 64-year-old gentleman who presents to the hospital with 2-day history of epigastric abdominal pain going to the back associated with nausea. Patient states that the pain started morning after the Super Bowl. Patient ate barbecue prior to the event. Patient has never had pain like this before. Patient denies vomiting, bloating, belching or heartburn. Patient denies diarrhea, constipation or blood per rectum. Patient denies dysuria or hematuria. Patient denies sore throat, runny nose, chest pain, fever or chills. Patient does have a slight cough. Patient had a aortic dissection and cardiac workup which was negative. Patient's ultrasound which showed evidence of acute cholecystitis and cholelithiasis. Review of systems: Otherwise unremarkable Past medical history: Morbid obesity, hypertension, diabetes Past surgical history: Shoulder and left knee surgery Allergies: None Social history: Patient denies smoking and drinks occasionally Family history: Lung cancer in the mother Vital signs: Stable, afebrile Physical exam: Awake, alert and oriented x 3 Head and neck exam: No evidence of icterus, no neck masses, no JVD, throat clear neck supple Chest: Clear Heart: S1-S2 Abdomen: Soft, nondistended, positive bowel sound, positive right upper quadrant tenderness with rebound and Daniel's sign Extremity: Neurovascular intact Neuro: Nonfocal Diagnostic data: Leukocytosis with normal LFTs, ultrasound consistent with acute cholecystitis and cholelithiasis Assessment: Acute cholecystitis and cholelithiasis Plan/recommendation: Admit, n.p.o., IV fluids, IV antibiotics and to the OR for laparoscopic cholecystectomy possible open. Patient and daughter understand risk, benefits and alternatives and agrees to procedure. CC:
[2024-04-14] MEDS ORDERED: Phenylephrine HCl 10 MG/ML 1 ML VIAL ONE (09:27)
[2024-04-14] MEDS: BUPIVACAINE 0.5% PF 10 ML VIAL ONE (09:30)
[2024-04-14] MEDS ORDERED: GLYCOPYRROLATE 0.2 MG/ML SYR ONE (10:15)
[2024-04-14] MEDS ORDERED: NEOSTIGMINE 1 MG/ML -10 ML VIAL ONE (10:15)
--- NOTE | 2024-04-14 10:34 | P.OP ---
Date of Service: 04/14/24 Preop diagnosis: Acute cholecystitis and cholelithiasis Postop diagnosis: Acute gangrenous cholecystitis and cholelithiasis Procedure performed: Laparoscopic cholecystectomy Surgeon: Dustin Trujillo MD Hardware Installer: Karina YANG Estimated blood loss: Minimal Specimen: Gallbladder Findings: As above Anesthesia: General Complications: None Drains: None Fluids and blood products: Nonapplicable Disposition: Recovery room Operative note: Patient brought to the OR and placed in the supine position. General anesthesia began. Patient prepped and draped in usual sterile fashion. Marcaine 0.5% infiltrated locally. 15 blade used to make a 2 cm supraumbilical midline incision. Subcutaneous tissue divided. Fascia identified and divided. #1 Vicryl stay suture placed. Peritoneal cavity entered with sharp and blunt dissection. 12 mm trocar placed into the peritoneal cavity under direct vision. Pneumoperitoneum established. Laparoscopy revealed acute gangrenous cholecystitis. Three 5 mm trocars placed under direct vision. 1 trocar placed in the epigastric region just to the right of midline. 2 trocars placed in the right subcostal region. An extra 5 mm trocar placed to retract the omentum and stomach out of the field of dissection. The gallbladder was distended and aspirated of bile. The gallbladder was necrotic and ischemic consistent with acute gangrenous cholecystitis. Fundus was retracted superiorly. Infundibulum identified and retracted inferolaterally. Cystic duct and cystic artery clearly identified with sharp and blunt dissection. Clips placed and both structures divided. Cautery used to remove the gallbladder from the liver bed. Gallbladder retrieved to the umbilicus via Endo Catch bag. Right upper quadrant irrigated and effluent clear. There was no evidence of bleeding or bile leakage appreciated. There was minimal oozing from the liver bed. Caity was used. All trocars were removed under direct vision. Stay sutures were tied to each other to reapproximate the fascial defect. Subcutaneous wounds irrigated and bleeding controlled cautery. 3-0 chromic used to approximate subcutaneous tissue. Staple used to close skin. Sterile dressing applied. Patient awakened and taken to recovery room in good general condition. CC:
[2024-04-14] MEDS ORDERED: ONDANSETRON 4 MG/2 ML VIAL IV PRN (10:49)
[2024-04-14] MEDS ORDERED: HYDROMORPHONE HCL 1 MG/ML INJ IV PRN (10:49)
[2024-04-14] MEDS: NA CHLORIDE 0.9% 1,000 ML IV SCH (11:00)
[2024-04-14] MEDS: POTASSIUM PHOS IN 0.9 % NACL 15 MMOL/250 ML BAG IV ONE (13:32)
[2024-04-14] MEDS: HYDROCODONE/APAP 7.5/325 MG TAB PO PRN (13:42)
--- NOTE | 2024-04-14 15:59 | P.PN ---
Date of Service: 04/14/24 Subjective: S/P laparoscopic cholecystectomy Symptoms improving No other acute events overnight ROS: 10 point ROS as noted above, otherwise negative Physical exam GEN: Alert, oriented, NAD HEENT: Normal conjunctiva, sclera anicteric CV: Regular rate and rhythm, no edema Pulm: Nonlabored respirations on room air ABD: Soft, mild right sided abd tenderness, nondistended MSK: No joint tenderness Integumentary: No rashes Neuro: Normal speech, normal affect Vitals reviewed Assessment and Plan Acute gangrenous cholecystitis status post laparoscopic cholecystectomy 04/14/2024 Doing well postoperatively Continue IV antibiotics with Zosyn Diet per surgery Reevaluate tomorrow for possible discharge planning Sigmoid diverticulosis without diverticulitis - supportive care - follow up outpatient Prolonged QT/QTc -hold medications that prolong QT/QTc DM-NIDDM -accucheck with SSI HTN -Continue home medications DVT ppx SCD Full code LOS 2 days Discharge Plan: Home Plan to discharge in: 48 Hours Time Spent Managing Pts Care (In Minutes): 35
[2024-04-14 21:46] VITALS: O2SAT 91
[2024-04-15 07:59] LABS: Absolute Eosinophils 0.2 K/uL (0-0.5); Absolute Lymphocytes (CBC) 1.2 K/uL (0.7-4.9); Absolute Monocytes 1.3 K/uL (0.1-1.3); Absolute Neutrophil 8.6 K/uL (1.8-8.0); Basophils % 0.1 % (0-1.3); Eosinophils % 1.8 % (0-4.4); Hematocrit 36.7 % (39.6-49.0); Hemoglobin 11.4 g/dL (13.6-17.9); Lymphocytes % 10.5 % (15.3-44.8); MCH 22.9 pg (27.0-35.0); MCHC 31.2 g/dL (32.0-36.0); MCV 73.6 fL (80-100); MPV 8.1 fL (7.6-11.3); Monocytes % 11.6 % (3.3-12.3); Nucleated Red Blood Cells % 0.1 % (0-0); Platelets 229 thou/uL (152-406); RBC Red Blood Cell Count 4.98 M/uL (4.33-5.43); Red Cell Distribution Width 17.7 % (12.1-15.2)
--- NOTE | 2024-04-15 08:00 | PN ---
Date of Progress Note: 04/15/2024 Subjective: The patient is awake, alert, tolerating clear liquids, hungry for solid food. No pain, just some soreness. Objective: Vital Signs: Stable, afebrile. Abdomen: Benign. Dressing clean, dry, and intact. Laboratory Data: Pending. Assessment: Status post laparoscopic cholecystectomy for acute gangrenous cholecystitis. Recommendation: Check labs. If okay, the patient will be cleared for discharge from surgery [facility]. Discharge instructions given. Antibiotics and pain medicine per the hospitalist's team. Fo llow up in my office in 1 week. Call for appointment. /MODL Voice ID: [id number] Report ID: [id number]
[2024-04-15 08:07] LABS: Albumin 2.3 g/dL (3.4-5.0); Albumin/Globulin Ratio 0.5 (1.1-1.8); Anion Gap 8.9 mEq/L (5.0-15.0); Bilirubin Total 0.8 mg/dL (0.2-1.0); Magnesium 2.6 mg/dL (1.6-2.4); Phosphorus 2.1 mg/dL (2.5-4.9); Potassium 3.9 mEq/L (3.5-5.1); Protein, Total 7.3 g/dL (6.4-8.2)
--- NOTE | 2024-04-15 10:31 | P.DS ---
Admission Date: 04/12/24 Discharge Date: 04/15/24 Disposition: ROUTINE DISCHARGE Discharge Condition: GOOD Reason for Admission: Diffuse chest, abd, and back pain Brief History of Present Illness: Juan Gloria 64 year old male with pmhx HTN and DM-NIDDM who presents to the ED with diffuse and intractable chest, abdominal, and back pain that started last night. He reports epigastric abdominal started then radiated to his back and chest. He denies acid reflux but reports drinking 6-8 beers every other day with his last drinking splurge [place] the [place]. CT CAP showing sigmoid diverticulosis without diverticulitis. Lipase and LFTs WNL. Serum alcohol and UDS pending Juan will be admitted to hospitalist service for further evaluation of diffuse intractable pain. Hospital Course: Assessment Acute gangrenous cholecystitis status post laparoscopic cholecystectomy 04/14/2024 Sigmoid diverticulosis without diverticulitis Prolonged QT/QTc DM-NIDDM HTN Patient was admitted to the hospital for epigastric/chest pain, abdominal pain, back pain. CT dissection protocol was negative for acute findings although patient's pain persisted and he developed tenderness in the right upper quadrant. Abdominal ultrasound was subsequently obtained which demonstrated concern for acute cholecystitis. Patient was taken to the OR with Dr. Trujillo for laparoscopic cholecystectomy and found to have acute gangrenous cholecystitis. He underwent laparoscopic cholecystectomy morning of 04/14/2024, this morning his pain is improved, he is tolerating diet and labs are stable. Patient stable for discharge outpatient follow-up with Dr. Trujillo in 1 week Pain medication-Menard and antibioticAugmentin sent to the pharmacy Surgical/dressing care per surgery listed below Remove outer dressing in a.m. and shower Keep wound clean and dry Dry gauze or Band-Aid to wound daily Resume home meds and diet No heavy lifting or strenuous exercise Follow-up my office 1 week, call for appointment Antibiotics and pain medicine per the hospitalist team Incentive spirometry as instructed Vital Signs/Physical Exam: Temp Pulse Resp BP Pulse Ox 98.3 F 98 H 19 134/77 91 04/15/24 08:00 04/15/24 08:00 04/15/24 10:19 04/15/24 08:00 04/15/24 10:19 General: Alert, In no apparent distress, Oriented x3 HEENT: Atraumatic, PERRLA Neck: Supple, JVD not distended Respiratory: Clear to auscultation bilaterally, Normal air movement Cardiovascular: Regular rate/rhythm, Normal S1 S2 Gastrointestinal: Normal bowel sounds, No tenderness Musculoskeletal: Tenderness (mild tenderness) Integumentary: No rashes Neurological: Normal speech, Normal affect Laboratory Data at Discharge: WBC 11.30 thou/uL (4.3-10.9) H 04/15/24 07:06 Hgb 11.4 g/dL (13.6-17.9) L 04/15/24 07:06 Hct 36.7 % (39.6-49.0) L 04/15/24 07:06 Plt Count 229 thou/uL (152-406) 04/15/24 07:06 Sodium 134 mEq/L (136-145) L 04/15/24 07:06 Potassium 3.9 mEq/L (3.5-5.1) 04/15/24 07:06 BUN 11 mg/dL (7-18) 04/15/24 07:06 Creatinine 0.94 mg/dL (0.70-1.30) 04/15/24 07:06 Glucose 119 mg/dL (74-106) H 04/15/24 07:06 Phosphorus 2.1 mg/dL (2.5-4.9) L 04/15/24 07:06 Magnesium 2.6 mg/dL (1.6-2.4) H 04/15/24 07:06 Total Bilirubin 0.8 mg/dL (0.2-1.0) 04/15/24 07:06 AST 60 U/L (15-37) H 04/15/24 07:06 ALT 44 U/L (16-61) 04/15/24 07:06 Alkaline Phosphatase 67 U/L (45-117) 04/15/24 07:06 Triglycerides 217 mg/dL (<150) H 04/13/24 05:48 Cholesterol 187 mg/dL (<200) 04/13/24 05:48 HDL Cholesterol 43 mg/dL (40-60) 04/13/24 05:48 Cholesterol/HDL Ratio 4.35 04/13/24 05:48 Lipase 20 U/L (13-75) 04/14/24 05:59 Home Medications: Amlodipine [Norvasc*] 10 mg PO DAILY 09/25/19 Cholecalciferol (Vitamin D3) [Vitamin D 1000 Iu Tab*] 2,000 unit PO DAILY tab 10/05/19 Thiamine HCl [Vitamin B-1*] 200 mg PO DAILY #14 tablet 10/05/19 Ascorbic Acid [Vitamin C*] 500 mg PO DAILY #30 tablet 10/19/19 Buspirone HCl [Buspar*] 5 mg PO BID 04/12/24 Celecoxib 100 mg PO BID 04/12/24 Dapagliflozin Propanediol [Farxiga] 10 mg PO DAILY 04/12/24 Ferrous Sulfate 325 mg PO DAILY 04/12/24 Metformin HCl 850 mg PO BID 04/12/24 Sertraline [Zoloft*] 50 mg PO DAILY 04/12/24 Amox/Clavulanate [Augmentin 875-125 Tab] 875 mg PO BID 7 Days #14 tab 04/15/24 Hydrocodone 7.5/APAP 325 [Menard 7.5/325 mg*] 1 tab PO Q6H PRN #15 tab 04/15/24 New Medications: Amox/Clavulanate [Augmentin 875-125 Tab] 875 mg PO BID 7 Days #14 tab Hydrocodone 7.5/APAP 325 [Menard 7.5/325 mg*] 1 tab PO Q6H PRN #15 tab PRN Reason: Pain Scale 5-7 (Moderate) Physician Discharge Instructions: Patient was admitted to the hospital for epigastric/chest pain, abdominal pain, back pain. CT dissection protocol was negative for acute findings although patient's pain persisted and he developed tenderness in the right upper quadrant. Abdominal ultrasound was subsequently obtained which demonstrated concern for acute cholecystitis. Patient was taken to the OR with Dr. Trujillo for laparoscopic cholecystectomy and found to have acute gangrenous cholecystitis. He underwent laparoscopic cholecystectomy morning of 04/14/2024, this morning his pain is improved, he is tolerating diet and labs are stable. Patient stable for discharge outpatient follow-up with Dr. Trujillo in 1 week Pain medication-Menard and antibioticAugmentin sent to the pharmacy Surgical/dressing care per surgery listed below Remove outer dressing in a.m. and shower Keep wound clean and dry Dry gauze or Band-Aid to wound daily Resume home meds and diet No heavy lifting or strenuous exercise Follow-up my office 1 week, call for appointment Antibiotics and pain medicine per the hospitalist team Incentive spirometry as instructed Diet: ADA Activity: No lifting more than 10 lbs Followup: Dustin Trujillo MD [ACTIVE - CAN ADMIT] - 1 Week Time spent managing pt's care (in minutes): 43
[2024-04-15 15:29] VITALS: BP 117/74; TEMP 98.4
== END 2024-04-15 12:28 | disposition home or self-care (01) | DRG 418 ==
LOC: ER 09:55 → ERHOLD 12:35 → 4TH 13:20
PROVIDERS: ADMIT Internal Medicine; ATTEND Hospitalist
PROC: 0FT44ZZ Resection of Gallbladder, Percutaneous Endoscopic Approach (ICD-10-PCS; principal; 2024-04-14 09:01)
DX: K80.00 Calculus of gallbladder with acute cholecystitis without obstruction (principal); Z68.43 Body mass index [BMI] 50.0-59.9, adult; E66.01 Morbid (severe) obesity due to excess calories; K82.A1 Gangrene of gallbladder in cholecystitis; I10 Essential (primary) hypertension; E11.9 Type 2 diabetes mellitus without complications; F10.10 Alcohol abuse, uncomplicated; K57.30 Diverticulosis of large intestine without perforation or abscess without bleeding; R94.31 Abnormal electrocardiogram [ECG] [EKG]; Z11.52 Encounter for screening for COVID-19; Z79.84 Long term (current) use of oral hypoglycemic drugs; Z79.899 Other long term (current) drug therapy; Y90.0 Blood alcohol level of less than 20 mg/100 ml
CPT/HCPCS: 36415; 71275; 74175; 76705; 80048; 80053; 80061; 80076; 80307; 81001; 82077; 82947; 83690; 83735; 84100; 84484; 85025; 87804; 87807; 87811; 88304; 93005; 94010; 96374; 96375; 99285; J1644; J2003; J2250; J2270; J2371; J2405; J2470; J2543; J2704; J2710; J3010; J7030; Q9967